=== PATIENT | male | born 1985 | race Two or more races ===

== ENCOUNTER 2019-10-12 01:56 | Inpatient (IN) | payer MEDICAID, OTHER ==
[~2019-10-12] VITALS: Ht 188 cm; Wt 113.4 kg
[2019-10-12 02:55] LABS: Basophils # (auto) 0 10 ^3/uL (0-0.2); Basophils % (auto) 0.2 % (0.0-2.0); Eosinophils # (auto) 0 10 ^3/uL (0-0.8); Hematocrit 48.1 % (41.0-53.0); Hemoglobin 16.3 g/dL (13.5-17.5); Lymphocytes # (auto) 0.5 10 ^3/uL (0.4-5.4); Lymphocytes % (auto) 3.1 % (10.0-50.0); Mean Corpuscular Hemoglobin 30.2 pg (28.0-32.0); Mean Corpuscular Hgb Conc. 33.9 g/dL (32.0-36.0); Monocytes # (auto) 1.1 10 ^3/uL (0-1.3); Monocytes % (auto) 6.6 % (0.0-12.0); Neutrophils # (auto) 14.7 10 ^3/uL (1.6-8.6); Neutrophils % (auto) 90.1 % (37.0-80.0); Platelet Count (auto) 312 10^3/uL (140-450); Red Cell Distribution Width 15.9 % (11.8-14.3); White Blood Cell 16.3 10^3/uL (4.4-10.8)
[2019-10-12 03:14] LABS: BUN/Creatinine Ratio 1.8; Calcium 8.4 mg/dL (8.5-10.1); Potassium 3.8 mmol/L (3.5-5.1)
[2019-10-12 03:17] LABS: Total Protein 8.2 g/dL (6.4-8.2)
[2019-10-12 03:18] LABS: Salicylate < 1.7 mg/dL (2.8-20.0)
[2019-10-12 03:19] LABS: Acetaminophen < 2.0 ug/mL (10-30)
[2019-10-12] MEDS ORDERED: SODIUM CHLORIDE 0.9% 1,000 ML IV ONE ×2 (03:30→05:15)
[2019-10-12 03:38] LABS: Urine Bacteria FEW /hpf (None Seen); Urine Blood TRACE /uL (Negative); Urine Hyaline Cast MANY /lpf (0 - 2); Urine Mucus FEW (None Seen); Urine Specific Gravity 1.021 (1.001-1.035); Urine WBC 1 /hpf (0 - 3)
[2019-10-12 03:49] LABS: Alcohol, Urine < 3.0 mg/dL (0-10); Amphetamine Screen, Urine NEGATIVE (NEGATIVE); Barbiturate Scree,Urine NEGATIVE (NEGATIVE); Benzodiazephine Screen, Urine NEGATIVE (NEGATIVE); Cannabinoid Screen, Urine NEGATIVE (NEGATIVE); Cocaine Screen, Urine NEGATIVE (NEGATIVE); Opiate Scree,Urine NEGATIVE (NEGATIVE); Phencyclidine Screen, Urine NEGATIVE (NEGATIVE)
[2019-10-12] MEDS ORDERED: THIAMINE 100mg/ml INJ (200mg/2ml VIAL) IV ONE (05:15)
[2019-10-12] MEDS ORDERED: FOLIC ACID 1 MG, MULTIPLE VITAMIN 10 ML, MAGNESIUM SULF SDV 50% 8 MEQ, THIAMINE INJ 100... INJ ONE ×5 (05:15)
[2019-10-12] MEDS: SODIUM CHLORIDE 0.9% 1,000 ML IV SCH ×3 (05:24→16:58)
[2019-10-12] MEDS ORDERED: DEXTROSE (50%) 50ML SYRG IV PRN (05:30)
[2019-10-12] MEDS ORDERED: DOCUSATE SOD 100 MG CAP PO PRN (05:30)
[2019-10-12] MEDS ORDERED: MVI in SODIUM CHLORIDE 0.9% 1,010 ML ONE (06:00)
[2019-10-12] MEDS: InsuLIN REG 1unit/0.01ml Soln (100units/ml) SC SCH ×4 (07:57→20:00)
[2019-10-12] MEDS: ACCU-CHEK COMFORT CURVE STRIP VI SCH ×4 (07:58→20:00)
[2019-10-12 09:13] LABS: Basophils # (auto) 0 10 ^3/uL (0-0.2); Basophils % (auto) 0.1 % (0.0-2.0); Eosinophils # (auto) 0 10 ^3/uL (0-0.8); Eosinophils % (auto) 0.2 % (0.0-7.0); Hematocrit 43.3 % (41.0-53.0); Hemoglobin 14.7 g/dL (13.5-17.5); Lymphocytes # (auto) 0.6 10 ^3/uL (0.4-5.4); Lymphocytes % (auto) 4.5 % (10.0-50.0); Mean Corpuscular Hemoglobin 30.5 pg (28.0-32.0); Mean Corpuscular Volume 89.7 fL (80.0-100.0); Monocytes # (auto) 0.7 10 ^3/uL (0-1.3); Monocytes % (auto) 4.7 % (0.0-12.0); Neutrophils # (auto) 12.9 10 ^3/uL (1.6-8.6); Neutrophils % (auto) 90.5 % (37.0-80.0); Platelet Count (auto) 291 10^3/uL (140-450); Red Blood Cells 4.82 10^6/uL (4.5-5.90); Red Cell Distribution Width 15.9 % (11.8-14.3); White Blood Cell 14.2 10^3/uL (4.4-10.8)
[2019-10-12 09:21] LABS: Albumin 3.4 g/dL (3.4-5.0); Anion Gap 11 (5-15); Blood Alcohol < 3.0 mg/dL (0-5); Blood Urea Nitrogen 8 mg/dL (7-18); Calcium 7.9 mg/dL (8.5-10.1); Carbon Dioxide 20 mmol/L (21-32); Chloride 109 mmol/L (98-107); Glucose 179 mg/dL (74-106); Potassium 3.8 mmol/L (3.5-5.1); Sodium 140 mmol/L (136-145)
[2019-10-12 09:25] LABS: Alanine Aminotransferase 49 U/L (16-61); Alkaline Phosphatase 98 U/L (45-117); Aspartate Aminotransferase 33 U/L (15-37); BUN/Creatinine Ratio 3.3; Bilirubin, Total 0.9 mg/dL (0.2-1.0); GFR African American 39 mL/min; GFR Non-African American 32 mL/min
[2019-10-12] MEDS ORDERED: ALPR0.5T7 PO (09:25)
[2019-10-12 09:41] LABS: Cholesterol 198 mg/dL (< 200); HDL Cholesterol 76 mg/dL (40-59); LDL Cholesterol 108 mg/dL (< 100); Triglycerides 124 mg/dL (< 150)
[2019-10-12] MEDS ORDERED: LORazepam 2MG/ML-1ML VIAL IV ONE ×2 (11:15→13:45)
[2019-10-12] MEDS ORDERED: LORazepam 2MG/ML-1ML VIAL ONE ×2 (11:18→13:23)
[2019-10-12] MEDS ORDERED: dilTIAZem 25 MG/5 ML VIAL IV ONE (14:00)
[2019-10-12] MEDS ORDERED: METOPROLOL TARTRATE 25 MG TAB PO ONE (14:30)
[2019-10-12] MEDS ORDERED: cefTRIAXone 1GM/50ML D5W 50 ML IV ONE (15:15)
[2019-10-12] MEDS ORDERED: VANCOMYCIN PER PHARMACY 0 MG IV SCH (15:15)
[2019-10-12] MEDS ORDERED: MAGNESIUM SULFATE 1GM/100ML 100 ML IV ONE (15:30)
[2019-10-12] MEDS: ONDANSETRON HCL 4 MG/2 ML VIAL IV PRN ×2 (16:51→20:05)
[2019-10-12] MEDS ORDERED: VANCOMYCIN 1GM/250ML 250 ML IV ONE (17:00)
[2019-10-12 19:05] LABS: Free T3 3.3 pg/mL (2.3-4.2); Free T4 (Free Thyroxine) 1.21 ng/dL (0.89-1.76)
[2019-10-12] MEDS: chlordiazePOXIDE HCL 25 MG CAP PO PRN (19:07)
[2019-10-12] MEDS: LORazepam 0.5 MG TAB PO PRN (19:07)
[2019-10-13] MEDS: SODIUM CHLORIDE 0.9% 1,000 ML IV SCH ×3 (00:52→16:15)
[2019-10-13] MEDS: METOPROLOL TARTRATE 25 MG TAB PO SCH ×3 (00:52→21:11)
[2019-10-13] MEDS: LORazepam 0.5 MG TAB PO PRN ×3 (01:00→17:48)
[2019-10-13] MEDS: chlordiazePOXIDE HCL 25 MG CAP PO PRN ×3 (01:00→09:54)
[2019-10-13] MEDS: InsuLIN REG 1unit/0.01ml Soln (100units/ml) SC SCH ×6 (01:07→20:00)
[2019-10-13] MEDS: ONDANSETRON HCL 4 MG/2 ML VIAL IV PRN ×3 (01:32→19:15)
[2019-10-13] MEDS ORDERED: PANTOPRAZOLE 40 MG/10 ML VIAL INJ IV ONE (03:15)
[2019-10-13] MEDS: MORPHINE SULF INJ 2 MG/ML SYRINGE 1ML IV PRN ×5 (03:18→23:34)
[2019-10-13] MEDS: ACCU-CHEK COMFORT CURVE STRIP VI SCH ×6 (04:16→20:00)
[2019-10-13 06:04] LABS: Basophils # (auto) 0 10 ^3/uL (0-0.2); Basophils % (auto) 0.3 % (0.0-2.0); Eosinophils # (auto) 0 10 ^3/uL (0-0.8); Hematocrit 40.3 % (41.0-53.0); Hemoglobin 13.5 g/dL (13.5-17.5); Lymphocytes # (auto) 1.1 10 ^3/uL (0.4-5.4); Lymphocytes % (auto) 8.8 % (10.0-50.0); Mean Corpuscular Hemoglobin 30.4 pg (28.0-32.0); Mean Corpuscular Hgb Conc. 33.6 g/dL (32.0-36.0); Mean Corpuscular Volume 90.4 fL (80.0-100.0); Monocytes # (auto) 0.9 10 ^3/uL (0-1.3); Monocytes % (auto) 7.2 % (0.0-12.0); Neutrophils # (auto) 10.2 10 ^3/uL (1.6-8.6); Neutrophils % (auto) 83.7 % (37.0-80.0); Platelet Count (auto) 141 10^3/uL (140-450); Red Blood Cells 4.46 10^6/uL (4.5-5.90); Red Cell Distribution Width 16.2 % (11.8-14.3); White Blood Cell 12.2 10^3/uL (4.4-10.8)
[2019-10-13 06:14] LABS: Albumin 3.2 g/dL (3.4-5.0); Calcium 7.6 mg/dL (8.5-10.1); Potassium 3.4 mmol/L (3.5-5.1)
[2019-10-13 06:17] LABS: BUN/Creatinine Ratio 2.5; Total Protein 6.4 g/dL (6.4-8.2)
[2019-10-13] MEDS: cefTRIAXone 1GM/50ML D5W 50 ML IV SCH (08:27)
[2019-10-13] MEDS ORDERED: POTASSIUM EFFERVESENT TAB 25 MEQ PO ONE (08:30)
[2019-10-13] MEDS: HYDROcodone-ACET 5/325MG TAB PO PRN (11:42)
[2019-10-14] MEDS: SODIUM CHLORIDE 0.9% 1,000 ML IV SCH (00:15)
[2019-10-14] MEDS: InsuLIN REG 1unit/0.01ml Soln (100units/ml) SC SCH ×6 (04:00→20:00)
[2019-10-14] MEDS: ACCU-CHEK COMFORT CURVE STRIP VI SCH ×6 (04:00→20:00)
[2019-10-14 04:09] LABS: Basophils # (auto) 0 10 ^3/uL (0-0.2); Basophils % (auto) 0.7 % (0.0-2.0); Eosinophils # (auto) 0 10 ^3/uL (0-0.8); Eosinophils % (auto) 0.3 % (0.0-7.0); Hematocrit 36.9 % (41.0-53.0); Hemoglobin 12.3 g/dL (13.5-17.5); Lymphocytes # (auto) 1.2 10 ^3/uL (0.4-5.4); Lymphocytes % (auto) 23.1 % (10.0-50.0); Mean Corpuscular Hemoglobin 30.4 pg (28.0-32.0); Mean Corpuscular Hgb Conc. 33.3 g/dL (32.0-36.0); Mean Corpuscular Volume 91.1 fL (80.0-100.0); Monocytes # (auto) 0.3 10 ^3/uL (0-1.3); Monocytes % (auto) 5.8 % (0.0-12.0); Neutrophils # (auto) 3.6 10 ^3/uL (1.6-8.6); Neutrophils % (auto) 70.1 % (37.0-80.0); Nucleated Red Blood Cells % 0.1 %; Platelet Count (auto) 125 10^3/uL (140-450); Red Blood Cells 4.05 10^6/uL (4.5-5.90); Red Cell Distribution Width 15.7 % (11.8-14.3); White Blood Cell 5.1 10^3/uL (4.4-10.8)
[2019-10-14 04:26] LABS: Albumin 2.7 g/dL (3.4-5.0); BUN/Creatinine Ratio 4.8; Calcium 8.1 mg/dL (8.5-10.1); Potassium 3.8 mmol/L (3.5-5.1)
[2019-10-14 04:29] LABS: Bilirubin, Total 0.7 mg/dL (0.2-1.0); Total Protein 6.1 g/dL (6.4-8.2)
[2019-10-14] MEDS: HYDROcodone-ACET 5/325MG TAB PO PRN ×2 (08:16→14:29)
[2019-10-14] MEDS: ONDANSETRON HCL 4 MG/2 ML VIAL IV PRN ×2 (08:17→13:30)
[2019-10-14] MEDS: cefTRIAXone 1GM/50ML D5W 50 ML IV SCH (08:31)
[2019-10-14] MEDS: METOPROLOL TARTRATE 25 MG TAB PO SCH (09:17)
[2019-10-14] MEDS: LORazepam 0.5 MG TAB PO PRN (13:30)
[2019-10-14] MEDS: ACETAMINOPHEN 325 MG TAB PO PRN ×2 (17:22→18:58)
[2019-10-14] MEDS ORDERED: Glucerna Carbsteady SHAKE Vanilla 8oz PO SCH (18:00)
[2019-10-14] MEDS ORDERED: Ensure HIGH Protein Chocolate 8oz Bottle PO SCH (18:00)
[2019-10-14] MEDS ORDERED: amLODIPine BESYLATE 5 MG TAB PO ONE (18:45)
[2019-10-14] MEDS: MORPHINE SULF INJ 2 MG/ML SYRINGE 1ML IV PRN (18:49)
[2019-10-14 19:30] VITALS: BP 148/89
[2019-10-15] MEDS ORDERED: amLODIPine BESYLATE 5 MG TAB PO SCH (10:00)
== END 2019-10-14 21:33 | disposition left against medical advice (07) | DRG 816 ==
LOC: EDBD 01:56 → ER 02:00 → OVERFLOW 02:01
PROVIDERS: ADMIT Hospitalist; ATTEND Internal Medicine
DX: T51.2X2A Toxic effect of 2-Propanol, intentional self-harm, initial encounter (principal); N17.0 Acute kidney failure with tubular necrosis; F10.229 Alcohol dependence with intoxication, unspecified; R73.9 Hyperglycemia, unspecified; N18.9 Chronic kidney disease, unspecified; E78.5 Hyperlipidemia, unspecified; E66.9 Obesity, unspecified; K21.9 Gastro-esophageal reflux disease without esophagitis; I12.9 Hypertensive chronic kidney disease with stage 1 through stage 4 chronic kidney disease, or unspecified chronic kidney disease; R00.0 Tachycardia, unspecified; E87.0 Hyperosmolality and hypernatremia; N39.0 Urinary tract infection, site not specified; Z53.29 Procedure and treatment not carried out because of patient's decision for other reasons; E87.6 Hypokalemia; F41.9 Anxiety disorder, unspecified; Z82.49 Family history of ischemic heart disease and other diseases of the circulatory system; Z78.1 Physical restraint status; G93.41 Metabolic encephalopathy; E44.0 Moderate protein-calorie malnutrition
CPT/HCPCS: 36415; 36600; 51702; 71045; 74176; 80053; 80061; 80307; 80320; 80329; 81001; 82805; 82962; 83036; 83735; 83930; 84439; 84443; 84481; 85025; 93005; 93306; 96361; 96365; 96375; 99291; C9113; G0378; J0696; J1815; J2405

== ENCOUNTER 2022-05-07 13:54 | Emergency (ER) | payer MEDICAID, OTHER ==
[~2022-05-07] VITALS: Ht 180.3 cm; Wt 127.0 kg
[~2022-05-07 13:54] MED LIST: ALPR0.5T7 PO
[2022-05-07 15:09] VITALS: BP 127/72
== END 2022-05-07 14:25 | disposition left against medical advice (07) ==
LOC: ER 13:54 → EDBD 13:54 → ER 14:25
DX: F10.129 Alcohol abuse with intoxication, unspecified (principal); Z53.21 Procedure and treatment not carried out due to patient leaving prior to being seen by health care provider

== ENCOUNTER 2024-05-26 03:47 | Inpatient (IN) | payer MEDICAID, OTHER ==
[~2024-05-26] VITALS: Ht 180.3 cm; Wt 147.1 kg
[2024-05-26] MEDS: IOHEXOL 300 MG/ML 100ML BOTTLE IJ ONE (04:23)
[2024-05-26] MEDS: SODIUM CHLORIDE 0.9% 3,000 ML IV ONE (04:37)
--- NOTE | 2024-05-26 04:37 | ED.PDOC ---
History of Present Illness HPI Comments 38 y/o M, with a history of HTN, pancreatitis, and alcohol abuse, presents with c/o nonradiating, epigastric abdominal pain, nausea, diarrhea, and lightheadedness, today. Patient endorses on sudden and unprovoked onset of symptoms at around 0000, this morning. He states on pain being a 10/10 in severity and diarrhea being "watery-brown" in appearance. Patient reports on no additional relevant or pertinent information, such as injuries, sick contact, spoiled food intake, or other significant medical or surgical history. He denies any vomiting, constipation, hematochezia, urinary symptoms, fever, chills, or other associated symptoms or modifiers at this time. Chief Complaint: Abdominal Pain Time Seen by MD: 04:00 Reviewed Notes: Nurses Notes, Medications, Allergies Allergies: Coded Allergies: NO KNOWN ALLERGIES (Unverified , 10/12/19) Home Meds Reported Medications Alprazolam (Alprazolam) 0.5 Mg Tab, 1 TAB PO PRN PRN for ANXIETY, #30 TAB 10/12/19 Information Source: Patient Mode of Arrival: Ambulatory Severity: Moderate Timing: Hours Duration: Since onset Prehospital treatment: None Past Medical History PAST MEDICAL HISTORY: HTN Past Medical History (Other): pancreatitis Surgical History: Denies all surgeries Family History Family History: Unknown Social History Smoker: Non-Smoker Alcohol: Heavy Drugs: Denies Drug Use Lives In: Home Cardiovascular: reports: lightheadedness Gastrointestinal: reports: abdominal pain, diarrhea, nausea All Other Systems: Reviewed and Negative (Comprehensive review of systems negat bhavna unless otherwise stated above or in HPI) Physical Exam General Appearance: No Apparent Distress, Obese HEENT: Normal ENT Inspection, Pharynx Normal, TMs Normal Neck: Full Range of Motion, Non-Tender, Normal, Normal Inspection Respiratory: Chest Non-Tender, Lungs Clear, No Accessory Muscle Use, No Respiratory Distress, Normal Breath Sounds Cardiovascular: No Edema, No JVD, No Murmur, No Gallop, Normal Peripheral Pulses, Regular Rate/Rhythm Breast Exam: Deferred Gastrointestinal: Epigastric (tenderness), No Organomegaly, No Pulsatile Mass, Normal Bowel Sounds, Soft, Tenderness (epigastric ) Genitalia: Deferred Pelvic: Deferred Rectal: Deferred Extremities: No calf tenderness, Normal capillary refill, Normal inspection, Normal range of motion, Non-tender, No pedal edema Musculoskeletal : Apperance: Normal Neurologic: Alert, mandolin repairer II-XII nml as Tested, No Motor Deficits, Normal Affect, Normal Mood, No Sensory Deficits Cerebellar Function: Normal Reflexes: Normal Skin: Dry, Pallor, Warm Lymphatic: No Adenopathy Was a procedure done? Was a procedure done?: No Differential Dx Considerations may include: gastritis, gastroenteritis, GERD, PUD, spoiled food, viral syndrome, cholelithiasis, cholecystitis X-Ray, Labs, Meds, VS Vital Signs Date Time Temp Pulse Resp B/P (MAP) Pulse Ox O2 Delivery O2 Flow Rate FiO2 05/26/24 05:26 116 22 115/68 05/26/24 04:46 116 26 98 Room Air* 0 21 05/26/24 04:20 97.6 116 26 90/55 (67) 98 97.6 05/26/24 04:00 97.5 119 22 97/75 (82) 100 97.5 Lab Test 05/26/24 04:45 Range/Units White Blood Count 6.6 4.4-10.8 10^3/uL Red Blood Count 5.68 4.5-5.90 10^6/uL Hemoglobin 14.4 13.5-17.5 g/dL Hematocrit 44.7 41.0-53.0 % Mean Corpuscular Volume 78.6 L 80.0-100.0 fL Mean Corpuscular Hemoglobin 25.3 L 28.0-32.0 pg Mean Corpuscular Hemoglobin Concent 32.2 32.0-36.0 g/dL Red Cell Distribution Width 20.0 H 11.8-14.3 % Platelet Count 233 140-450 10^3/uL Mean Platelet Volume 8.7 6.9-10.8 fL Neutrophils (%) (Auto) 87.0 H 37.0-80.0 % Lymphocytes (%) (Auto) 4.0 L 10.0-50.0 % Monocytes (%) (Auto) 5.0 0.0-12.0 % Eosinophils (%) (Auto) 3.0 0.0-7.0 % Basophils (%) (Auto) 1.0 0.0-2.0 % Neutrophils # (Auto) 5.7 1.6-8.6 10 ^3/uL Lymphocytes # (Auto) 0.3 L 0.4-5.4 10 ^3/uL Monocytes # (Auto) 0.3 0-1.3 10 ^3/uL Eosinophils # (Auto) 0.2 0-0.8 10 ^3/uL Basophils # (Auto) 0.1 0-0.2 10 ^3/uL Nucleated Red Blood Cells 0.1 % Sodium Level 138 136-145 mmol/L Potassium Level 4.7 3.5-5.1 mmol/L Chloride Level 107 98-107 mmol/L Carbon Dioxide Level 19 L 20-31 mmol/L Anion Gap 12 5-15 Blood Urea Nitrogen 21 9-23 mg/dL Creatinine 1.30 0.700-1.30 mg/dL Glomerular Filtration Rate Calc 72 >90 mL/min BUN/Creatinine Ratio 16.2 10.0-20.0 Serum Glucose 119 H 74-106 mg/dL Lactic Acid Level 2.7 *H 0.4-2.0 mmol/L Calcium Level 10.8 H 8.7-10.4 mg/dL Total Bilirubin 0.8 0.2-1.0 mg/dL Aspartate Amino Transferase (AST) 21 13-40 U/L Alanine Aminotransferase (ALT) 26 7-40 U/L Alkaline Phosphatase 84 46-116 U/L Total Protein 8.1 5.7-8.2 g/dL Albumin 5.3 H 3.2-4.8 g/dL Lipase 35 12-53 U/L Current Medications Medications (Trade) Dose Ordered Sig/Addie Route Start Time Stop Time Status Last Admin Sodium Chloride 3,000 ml @ 1,000 mls/hr Q3H ONCE IV 05/26/24 04:15 05/26/24 07:14 05/26/24 04:37 Ondansetron HCl (Zofran) 4 mg ONCE ONCE IV 05/26/24 04:15 05/26/24 04:16 DC 05/26/24 04:38 Morphine Sulfate 4 mg ONCE ONCE IV 05/26/24 05:30 05/26/24 05:31 DC 05/26/24 05:26 Reevaluation 1ST: Unchanged Patient Education/Counseling: Diagnosis, Treatment Family Education/Counseling: No Family Present Additional Information Previous visit documents reviewed: May 07, 2022 encounter for ALOC The following tests were ordered, and results were reviewed by me: blood culture, CT abdomen/pelvis w/IV contrast, CXR, lactic acid, lipase, CMP, CBC Additional Information was gathered from interviewing the following independent historians: n/a I reviewed and agreed with the following test results read by other providers: CT abdomen/pelvis w/IV contrast, CXR I discussed treatment and results with medical personnel and: Patient Critical Care Note Critical Care Time?: No Stability Stability form required: No Heart Score Heart Score: Heart Score Response (Comments) Value History N/A 0 EKG N/A 0 Age N/A 0 Risk Factors N/A 0 Troponin N/A 0 Total 0 I personally scribed for REBEKAH STALLWORTH MD ([email or web address]) on 05/26/24 at 04:37. Electronically submitted by Saul Loya ([email or web address]). REBEKAH STALLWORTH MD May 26, 2024 04:37
[2024-05-26] MEDS: ONDANSETRON HCL 4 MG/2 ML VIAL IV ONE (04:38)
[2024-05-26 04:46] VITALS: PULSE 116; RESP 26; O2SAT 98
[2024-05-26 05:21] LABS: Basophils # (auto) 0.1 10 ^3/uL (0-0.2); Eosinophils # (auto) 0.2 10 ^3/uL (0-0.8); Hematocrit 44.7 % (41.0-53.0); Hemoglobin 14.4 g/dL (13.5-17.5); Lymphocytes # (auto) 0.3 10 ^3/uL (0.4-5.4); Mean Corpuscular Hemoglobin 25.3 pg (28.0-32.0); Mean Corpuscular Hgb Conc. 32.2 g/dL (32.0-36.0); Mean Corpuscular Volume 78.6 fL (80.0-100.0); Monocytes # (auto) 0.3 10 ^3/uL (0-1.3); Neutrophils # (auto) 5.7 10 ^3/uL (1.6-8.6); Nucleated Red Blood Cells % 0.1 %; Platelet Count (auto) 233 10^3/uL (140-450); Red Blood Cells 5.68 10^6/uL (4.5-5.90); White Blood Cell 6.6 10^3/uL (4.4-10.8)
[2024-05-26] MEDS: MORPHINE SULFATE 4 MG/ML SYR/VIAL IV ONE (05:26)
[2024-05-26 05:27] LABS: Alanine Aminotransferase 26 U/L (7-40); Alkaline Phosphatase 84 U/L (46-116); Anion Gap 12 (5-15); Aspartate Aminotransferase 21 U/L (13-40); BUN/Creatinine Ratio 16.2 (10.0-20.0); Blood Urea Nitrogen 21 mg/dL (9-23); Chloride 107 mmol/L (98-107); Lipase 35 U/L (12-53); Potassium 4.7 mmol/L (3.5-5.1); Sodium 138 mmol/L (136-145); Total Protein 8.1 g/dL (5.7-8.2)
[2024-05-26 05:28] LABS: Bilirubin, Total 0.8 mg/dL (0.2-1.0)
[2024-05-26 05:29] LABS: Albumin 5.3 g/dL (3.2-4.8); Calcium 10.8 mg/dL (8.7-10.4); Carbon Dioxide 19 mmol/L (20-31); Glucose 119 mg/dL (74-106)
[2024-05-26 05:41] LABS: Lactic Acid w/Reflex 2.7 mmol/L (0.4-2.0)
--- NOTE | 2024-05-26 06:07 | DVH ---
EXAM: CT Abdomen and Pelvis With Intravenous Contrast CLINICAL INDICATION: abdominal pain, hypotension TECHNIQUE: Axial computed tomography images of the abdomen and pelvis with intravenous contrast. Th is CT exam was performed using one or more of the following dose reduction techniques: automated exp osure control, adjustment of the mA and/or kV according to patient size, and/or use of iterative hollie nstruction technique. CONTRAST: COMPARISON: None FINDINGS: LUNG BASES: Unremarkable. No mass. No consolidation. ABDOMEN: LIVER: Unremarkable. No mass. GALLBLADDER AND BILE DUCTS: Unremarkable. No calcified stones. No ductal dilation. PANCREAS: Unremarkable. No mass. No ductal dilation. SPLEEN: Unremarkable. No splenomegaly. ADRENALS: Unremarkable. No mass. KIDNEYS AND URETERS: Unremarkable. No solid mass. No hydronephrosis. STOMACH AND BOWEL: Fluid-filled small and large bowel could be secondary to enterocolitis. Clinica l correlation is recommended. No bowel obstruction. PELVIS: APPENDIX: No findings to suggest acute appendicitis. BLADDER: Unremarkable. No mass. REPRODUCTIVE: Unremarkable as visualized. ABDOMEN and PELVIS: INTRAPERITONEAL SPACE: Unremarkable. No free air. No significant fluid collection. BONES/JOINTS: No acute fracture. No dislocation. SOFT TISSUES: Bilateral inguinal hernias. VASCULATURE: Unremarkable. No abdominal aortic aneurysm. LYMPH NODES: Unremarkable. No enlarged lymph nodes. OTHER FINDINGS: . IMPRESSION: 1. Fluid-filled small and large bowel could be secondary to enterocolitis. Clinical correlation is recommended. No bowel obstruction. 2. Bilateral inguinal hernias.
--- NOTE | 2024-05-26 06:25 | DVH ---
CHEST RADIOGRAPH Indication: abdominal pain Technique: Single frontal view of the chest was obtained Comparison: CHEST PORTABLE on DOS: 10/12/19 FINDINGS: Lines and Tubes: None Lungs: No focal consolidation. Pleura: No effusion. No pneumothorax. Cardiomediastinal contours: Unremarkable Bones: No acute osseous abnormality. IMPRESSION: 1. No acute cardiopulmonary disease.
[2024-05-26] MEDS ORDERED: ONDANSETRON HCL 4 MG/2 ML VIAL IV PRN (07:30)
[2024-05-26] MEDS ORDERED: ACETAMINOPHEN 325 MG TAB PO PRN (07:30)
[2024-05-26 07:35] VITALS: PULSE 127; RESP 17; O2SAT 97
[2024-05-26] MEDS: SODIUM CHLORIDE 0.9% 1,000 ML IV SCH (07:36)
[2024-05-26] MEDS: metroNIDAZOLE 500MG/100ML 100 ML IV ONE (07:36)
[2024-05-26] MEDS: ACETAMINOPHEN 500 MG TAB or CAP PO ONE (07:36)
[2024-05-26] MEDS ORDERED: LISI-285 PO (07:54)
--- NOTE | 2024-05-26 08:02 | DVHHP2 ---
History of Present Illness Reason for Visit: Abdominal Pain History of Present Illness Cih Hall is a 38-year-old male with past medical history of hypertension, and ETOH abuse, who came to the hospital for abdominal pain. Patient states his symptoms came on suddenly. Last night he was doing well, went to go to bed around midnight, used the bathroom, had a BM then suddenly the abdominal pain started and so did his diarrhea. He states he was using the bathroom every 5 minutes, was nauseated and dry heaving, and the abdominal pain was severe. On arrival to ER he was given medication that helped with the nausea and abdominal pain, he continues to have frequent diarrhea. Patient was found to be tachycar dic and hypotensive in the ER, with elevated lactic acid. Fluid resuscitation with 3L was initiated by ER. Later patient developed a fever of 102.1. Cardiovascular: HTN Past Surgical History: Other (gastric bypass) Smoke: No ALCOHOL: heavy Drugs: None Lives: with Family Review of Systems Constitutional: No: Fever, Chills, Sweats, Weakness, Malaise, Other Eyes: No: Pain, Vision change, Conjunctivae inflammation, Eyelid inflammation, Other, Redness ENT: No: Ear pain, Ear discharge, Nose pain, Nose discharge, Nose congestion, Mouth pain, Mouth swelling, Throat pain, Throat swelling, Other Respiratory: No: Cough, Dry, Shortness of breath, SOB with excertion, Wheezing, Hemoptysis, Pleuritic Pain, Sputum, Wheezing, Other Cardiovascular: No: Chest Pain, Palpitations, Orthopnea, Paroxysmal Noc. Dyspnea, Edema, Lt Headedness, Other Gastrointestinal: Nausea, Vomiting, Abdominal Pain, Diarrhea; No: Constipation, Melena, Hematochezia, Other Genitourinary: No Dysuria, No Frequency, No Incontinence, No Hematuria, No Retention, No Other Musculoskeletal: No: other, neck pain, shoulder pain, arm pain, back pain, hand pain, leg pain, foot pain Skin: No: Rash, Lesions, Jaundice, Bruising, Other Neurological: No: Weakness, Numbness, Incoordination, Change in speech, Confusion, Seizures, Other Allergies: Coded Allergies: NO KNOWN ALLERGIES (Unverified , 10/12/19) Medications Current Medications Medications Dose Ordered Sig/Addie Route Start Time Stop Time Status Last Admin Dose Admin Sodium Chloride 1,000 ml @ 100 mls/hr Q10H IV 05/26/24 07:30 UNV Acetaminophen/ Hydrocodone Bitart 1 tab Q4HP PRN PO 05/26/24 07:30 UNV Ondansetron HCl 4 mg Q4HP PRN IV 05/26/24 07:30 UNV Acetaminophen 650 mg Q6HP PRN PO 05/26/24 07:30 UNV Metronidazole 100 ml @ 100 mls/hr Q8HR IV 05/26/24 14:00 UNV Exam Vital Signs Vital Signs Date Time Temp Pulse Resp B/P (MAP) Pulse Ox O2 Delivery O2 Flow Rate FiO2 05/26/24 06:07 118 20 124/72 05/26/24 06:00 94 05/26/24 04:46 Room Air* 0 21 05/26/24 04:20 97.6 97.6 General Appearance: Alert, Oriented X3 HEENT: Atraumatic, PERRLA Respiratory: Clear to auscultation, Normal air movement, Other Cardiovascular: Regular rate, Normal S1, Normal S2, No murmurs Abdominal: Normal bowel sounds, Other (abdominal pain and bloating) Extremities: No clubbing, No cyanosis, No edema, Normal pulses Skin: No rashes, No breakdown, No significant lesion Neuro: Normal gait, Normal speech, Strength at 5/5 X4 ext Psych/Mental Status: Mental status NL, Mood NL Labs/Xrays Labs Test 05/26/24 06:35 05/26/24 04:45 Range/Units Lactic Acid Level 2.7 *H 0.4-2.0 mmol/L White Blood Count 6.6 4.4-10.8 10^3/uL Red Blood Count 5.68 4.5-5.90 10^6/uL Hemoglobin 14.4 13.5-17.5 g/dL Hematocrit 44.7 41.0-53.0 % Mean Corpuscular Volume 78.6 L 80.0-100.0 fL Mean Corpuscular Hemoglobin 25.3 L 28.0-32.0 pg Mean Corpuscular Hemoglobin Concent 32.2 32.0-36.0 g/dL Red Cell Distribution Width 20.0 H 11.8-14.3 % Platelet Count 233 140-450 10^3/uL Mean Platelet Volume 8.7 6.9-10.8 fL Neutrophils (%) (Auto) 87.0 H 37.0-80.0 % Lymphocytes (%) (Auto) 4.0 L 10.0-50.0 % Monocytes (%) (Auto) 5.0 0.0-12.0 % Eosinophils (%) (Auto) 3.0 0.0-7.0 % Basophils (%) (Auto) 1.0 0.0-2.0 % Neutrophils # (Auto) 5.7 1.6-8.6 10 ^3/uL Lymphocytes # (Auto) 0.3 L 0.4-5.4 10 ^3/uL Monocytes # (Auto) 0.3 0-1.3 10 ^3/uL Eosinophils # (Auto) 0.2 0-0.8 10 ^3/uL Basophils # (Auto) 0.1 0-0.2 10 ^3/uL Nucleated Red Blood Cells 0.1 % Sodium Level 138 136-145 mmol/L Potassium Level 4.7 3.5-5.1 mmol/L Chloride Level 107 98-107 mmol/L Carbon Dioxide Level 19 L 20-31 mmol/L Anion Gap 12 5-15 Blood Urea Nitrogen 21 9-23 mg/dL Creatinine 1.30 0.700-1.30 mg/dL Glomerular Filtration Rate Calc 72 >90 mL/min BUN/Creatinine Ratio 16.2 10.0-20.0 Serum Glucose 119 H 74-106 mg/dL Calcium Level 10.8 H 8.7-10.4 mg/dL Total Bilirubin 0.8 0.2-1.0 mg/dL Aspartate Amino Transferase (AST) 21 13-40 U/L Alanine Aminotransferase (ALT) 26 7-40 U/L Alkaline Phosphatase 84 46-116 U/L Total Protein 8.1 5.7-8.2 g/dL Albumin 5.3 H 3.2-4.8 g/dL Lipase 35 12-53 U/L EXAM: CT Abdomen and Pelvis With Intravenous Contrast FINDINGS: LUNG BASES: Unremarkable. No mass. No consolidation. ABDOMEN: LIVER: Unremarkable. No mass. GALLBLADDER AND BILE DUCTS: Unremarkable. No calcified stones. No ductal dilation. PANCREAS: Unremarkable. No mass. No ductal dilation. SPLEEN: Unremarkable. No splenomegaly. ADRENALS: Unremarkable. No mass. KIDNEYS AND URETERS: Unremarkable. No solid mass. No hydronephrosis. STOMACH AND BOWEL: Fluid-filled small and large bowel could be secondary to enterocolitis. Clinical correlation is recommended. No bowel obstruction. PELVIS: APPENDIX: No findings to suggest acute appendicitis. BLADDER: Unremarkable. No mass. REPRODUCTIVE: Unremarkable as visualized. ABDOMEN and PELVIS: INTRAPERITONEAL SPACE: Unremarkable. No free air. No significant fluid collection. BONES/JOINTS: No acute fracture. No dislocation. SOFT TISSUES: Bilateral inguinal hernias. VASCULATURE: Unremarkable. No abdominal aortic aneurysm. LYMPH NODES: Unremarkable. No enlarged lymph nodes. OTHER FINDINGS: . IMPRESSION: 1. Fluid-filled small and large bowel could be secondary to enterocolitis. Clinical correlation is recommended. No bowel obstruction. 2. Bilateral inguinal hernias. CHEST RADIOGRAPH FINDINGS: Lines and Tubes: None Lungs: No focal consolidation. Pleura: No effusion. No pneumothorax. Cardiomediastinal contours: Unremarkable Bones: No acute osseous abnormality. IMPRESSION: 1. No acute cardiopulmonary disease. Assessment/Plan Assessment/Plan Assessment: Enterocolitis, Dehydration, Hypotension, Lactic acidosis, Sepsis, Plan: Admit to Med-Surg, IV antibiotics, IV hydration, Amylase pending, Send stool for C-diff, WBC, & bacteria, Blood cultures, Consider GI consult if symptoms persist, Home medications reconciled, Plan discussed with: Patient My Orders Orders - TONO JOHNSON Procedure Category Date Status Time Amylase LAB 05/26/24 In Process 07:22 Admit ADMIT 05/26/24 Transmitted 07:22 Code Status CODE 05/26/24 Transmitted 07:22 Sodium Chloride 0.9% PHA 05/26/24 Logged 07:30 Hydrocodone-Acet PHA 05/26/24 Logged 5/325mg Tab ([place] 07:30 Ondansetron Hcl PHA 05/26/24 Logged (Zofran) 07:30 Complete Blood Count LAB 05/27/24 Verified 04:00 Comprehensive LAB 05/27/24 Verified Metabolic Panel 04:00 Condition: Serious GERMÁN 05/26/24 Transmitted 07:22 Acetaminophen Tablet PHA 05/26/24 Logged (Tylenol Tablet) 07:30 Clear Liq Diet DIET 05/26/24 Transmitted Breakfast Metronidazole PHA 05/26/24 Logged 500mg/100ml (Flagyl 14:00 Metronidazole PHA 05/26/24 Logged 500mg/100ml (Flagyl 07:30 Date of Service: May 26, 2024 Billing Provider: TONO JOHNSON Common Visit Codes: [id number] INP/OBS CARE (MOD) TONO JOHNSON May 26, 2024 08:02
[2024-05-26] MEDS: HYDROcodone-ACET 5/325MG TAB PO PRN (09:05)
[2024-05-26] MEDS: hydroCHLOROthiazide 25 MG TAB PO SCH (09:41)
[2024-05-26] MEDS: LISINOPRIL 20 MG TAB PO SCH (09:41)
[2024-05-26] MEDS ORDERED: SODIUM CHLORIDE 0.9% 1,000 ML IV ONE ×2 (10:00→11:45)
[2024-05-26] MEDS: SODIUM CHLORIDE 0.9% 1,000 ML IV ONE (10:45)
[2024-05-26] MEDS: cefTRIAXone 1GM/50ML D5W 50 ML IV ONE (10:54)
[2024-05-26 11:11] LABS: COVID19 ANTIGEN SOFIA FIA NEGATIVE (NEGATIVE); Rapid Influenza A Negative (Negative); Rapid Influenza B Negative (Negative)
[2024-05-26] MEDS ORDERED: SODIUM CHLORIDE 0.9% 250 ML IV ONE (11:30)
[2024-05-26] MEDS ORDERED: metroNIDAZOLE 500MG/100ML 100 ML IV SCH (14:00)
--- NOTE | 2024-05-26 15:04 | DVHPNRES ---
Progress Note Date Seen: May 26, 2024 Resident Creating Document: REDDY POLANCO RESIDENT Has the PT tested + for MRSA If YES, has PT been informed?: No Medical Necessity Reason Pt with a Central, PICC or Fol: No Subjective Review of Systems 38-year-old male with past medical history of hypertension,morbid obesity,depression and alcohol abuse, who came to the hospital for abdominal pain. Patient states his symptoms came on suddenly last night after he used the bathroom, he reports he had the abdominal pain associated with diarrhea. He states he was using the bathroom every 5 minutes, was nauseated and dry heaving, and the abdominal pain was severe. On arrival patient was found to be on severe sepsis for which he was started on ns bolus , broad spectrum antibiotics, in the afternoon the temperature normalized, blood pressure remained low but with MAP on 65 . patient was able to walk to the bathroom and tolerate soft mechanical diet. patient will need to be monitored and continue on fluids and iv atb. Patient reports: Feels better Review of Systems: HEENT:Normal, CVS:Normal, RESPIRATORY:Normal, GI:Normal, :Normal, MSK:Normal, NEURO:Normal Objective vital signs Vital Sign Date Time Temp Pulse Resp B/P (MAP) Pulse Ox O2 Delivery O2 Flow Rate FiO2 05/26/24 11:34 103 17 91/52 (65) 96 05/26/24 08:59 99.5 05/26/24 07:35 Room Air* 0 21 Total Intake and Output 05/25/24 05/25/24 05/26/24 15:00 23:00 07:00 Intake Total 2000 ml Balance 2000 ml medications Current Medications Medications Dose Ordered Sig/Addie Route Start Time Stop Time Status Last Admin Dose Admin Sodium Chloride 1,000 ml @ 100 mls/hr Q10H IV 05/26/24 07:30 05/26/24 07:36 100 MLS/HR Acetaminophen/ Hydrocodone Bitart 1 tab Q4HP PRN PO 05/26/24 07:30 05/26/24 09:05 1 TAB Ondansetron HCl 4 mg Q4HP PRN IV 05/26/24 07:30 Acetaminophen 650 mg Q6HP PRN PO 05/26/24 07:30 Metronidazole 100 ml @ 100 mls/hr Q8HR IV 05/26/24 14:00 Ceftriaxone Sodium 50 ml @ 100 mls/hr DAILY@09 IV 05/27/24 09:00 Examination: GENERAL:Normal, HEENT:Normal, NECK:Normal, LUNGS:Normal, CVS:Normal, ABDOMEN:Normal, MSK:Normal, SKIN:Normal, NEURO:Normal, :Normal laboratory and microbiology Laboratory Tests 05/26/24 04:45 Test 05/26/24 04:45 Range/Units Serum Glucose 119 H 74-106 mg/dL Microbiology Date/Time Source Procedure Growth Status 05/26/24 11:03 Stool Stool Culture - Preliminary Resulted 05/26/24 11:03 Stool Shiga Toxin I & II - Final Resulted 05/26/24 11:03 Stool Clostridium difficile Toxin Assay Pending Resulted Problem List/Assessment/Plan Problem List/Assessment/Plan Sever Sepsis likely due to enterocolitis hypertension hypotension major depression alcohol dependency bilateral inguinal hernias morbid obesity BMI:45.2 Plan: - Fluid resuscitation with NS 0.9% - IV antibiotics - Send stool for C-diff, pending - Blood cultures, pending - monitor vitals closely - patient clinically stable case discussed with Dr Lance goals of care discussed with the patient for 21 min code status: full code Plan discussed with: Patient My Orders My Orders Orders - REDDY POLANCO Procedure Category Date Status Time Drug Screen LAB 05/26/24 Logged 09:38 Urinalysis LAB 05/26/24 Uncollected 09:38 Ceftriaxone 1gm/50ml PHA 05/27/24 In Process D5w (Rocephin) 09:00 Date of Service: May 26, 2024 Billing Provider: TAYLOR LANCE MD Common Visit Codes: [id number] INP/OBS CARE(HIGH) REDDY POLANCO May 26, 2024 15:04 TAYLOR LANCE MD May 28, 2024 08:29
[2024-05-26 16:38] VITALS: BP 129/55; PULSE 86; RESP 16; TEMP 97.9; O2SAT 96
--- NOTE | 2024-05-27 06:55 | DVHDSRES ---
Discharge Summary Date of Admission Resident Creating Document: REDDY POLANCO May 26, 2024 at 07:22 Date of Discharge: May 26, 2024 Labs/Diagnostic Data: Laboratory Results Test 05/26/24 11:03 05/26/24 10:12 05/26/24 06:35 05/26/24 04:45 Stool for White Cells None seen Influenza Type A Antigen Negative (Negative) Influenza Type B Antigen Negative (Negative) SARS-CoV-2 Antigen (Rapid) Negative (NEGATIVE) Lactic Acid Level 2.7 mmol/L (0.4-2.0) White Blood Count 6.6 10^3/uL (4.4-10.8) Red Blood Count 5.68 10^6/uL (4.5-5.90) Hemoglobin 14.4 g/dL (13.5-17.5) Hematocrit 44.7 % (41.0-53.0) Mean Corpuscular Volume 78.6 fL (80.0-100.0) Mean Corpuscular Hemoglobin 25.3 pg (28.0-32.0) Mean Corpuscular Hemoglobin Concent 32.2 g/dL (32.0-36.0) Red Cell Distribution Width 20.0 % (11.8-14.3) Platelet Count 233 10^3/uL (140-450) Mean Platelet Volume 8.7 fL (6.9-10.8) Neutrophils (%) (Auto) 87.0 % (37.0-80.0) Lymphocytes (%) (Auto) 4.0 % (10.0-50.0) Monocytes (%) (Auto) 5.0 % (0.0-12.0) Eosinophils (%) (Auto) 3.0 % (0.0-7.0) Basophils (%) (Auto) 1.0 % (0.0-2.0) Neutrophils # (Auto) 5.7 10 ^3/uL (1.6-8.6) Lymphocytes # (Auto) 0.3 10 ^3/uL (0.4-5.4) Monocytes # (Auto) 0.3 10 ^3/uL (0-1.3) Eosinophils # (Auto) 0.2 10 ^3/uL (0-0.8) Basophils # (Auto) 0.1 10 ^3/uL (0-0.2) Nucleated Red Blood Cells 0.1 % Sodium Level 138 mmol/L (136-145) Potassium Level 4.7 mmol/L (3.5-5.1) Chloride Level 107 mmol/L (98-107) Carbon Dioxide Level 19 mmol/L (20-31) Anion Gap 12 (5-15) Blood Urea Nitrogen 21 mg/dL (9-23) Creatinine 1.30 mg/dL (0.700-1.30) Glomerular Filtration Rate Calc 72 mL/min (>90) BUN/Creatinine Ratio 16.2 (10.0-20.0) Serum Glucose 119 mg/dL (74-106) Hemoglobin A1c 5.6 % A1C (<5.7) Calcium Level 10.8 mg/dL (8.7-10.4) Total Bilirubin 0.8 mg/dL (0.2-1.0) Aspartate Amino Transferase (AST) 21 U/L (13-40) Alanine Aminotransferase (ALT) 26 U/L (7-40) Alkaline Phosphatase 84 U/L (46-116) Total Protein 8.1 g/dL (5.7-8.2) Albumin 5.3 g/dL (3.2-4.8) Amylase Level 135 U/L (30-118) Lipase 35 U/L (12-53) Vitamin B12 Level 293 pg/mL (211-911) Other Laboratory Tests 05/26/24 04:45 Brief Hx & Hospital Course: HPI: 38-year-old male with past medical history of hypertension,morbid obesity,depression and alcohol abuse, who came to the hospital for abdominal pain. Patient states his symptoms came on suddenly last night after he used the bathroom, he reports he had the abdominal pain associated with diarrhea. He states he was using the bathroom every 5 minutes, was nauseated and dry heaving, and the abdominal pain was severe. Hospital course: On arrival patient was found to be on severe sepsis for which he was started on ns bolus , broad spectrum antibiotics, in the afternoon the temperature normalized, blood pressure remained low but with MAP on 65 . patient was able to walk to the bathroom and tolerate soft mechanical diet. patient will need to be monitored and continue on fluids and iv atb.Patient encouraged to stay for further treatment/stabilization. Patient advised of the risks and benefits of leaving AMA.Patient left AMA. Operations or Procedures [place] [address] Ph: [phone] DIAGNOSTIC IMAGING Diagnostic Imaging Report : [id number] Signed PATIENT: BHUMIKA COLBY ACCT: [id number] UNIT: [id number] : 1985 LOC: ER ROOM / BED: / AGE / SEX: 38 / M ADM STATUS: REG ER SERVICE 9 ORDERING PHYSICIAN: REBEKAH STALLWORTH MD PROCEDURE(s): CXRP - CHEST PORTABLE REASON: abdominal pain ORDER NUMBER(s): [id number], ACCESSION NUMBER(s): [id number] CHEST RADIOGRAPH Indication: abdominal pain Technique: Single frontal view of the chest was obtained Comparison: CHEST PORTABLE on DOS: 10/12/19 FINDINGS: Lines and Tubes: None Lungs: No focal consolidation. Pleura: No effusion. No pneumothorax. Cardiomediastinal contours: Unremarkable Bones: No acute osseous abnormality. IMPRESSION: 1. No acute cardiopulmonary disease. ATED BY: GATO COLE MD DICTATED DATE/TIME: 05/26/24621 SIGNED BY: GATO COLE MD SIGNED DATE/TIME: 05/26/24621 CC: [place] [address] Ph: [phone] DIAGNOSTIC IMAGING Diagnostic Imaging Report : [id number] Signed PATIENT: BHUMIKA COLBY ACCT: [id number] UNIT: [id number] : 1985 LOC: ER ROOM / BED: / AGE / SEX: 38 / M ADM STATUS: REG ER SERVICE 9 ORDERING PHYSICIAN: REBEKAH STALLWORTH MD PROCEDURE(s): ABPLIV - CT AB PEL WITH IV CON ONLY REASON: abdominal pain, hypotension ORDER NUMBER(s): [id number], ACCESSION NUMBER(s): [id number] EXAM: CT Abdomen and Pelvis With Intravenous Contrast CLINICAL INDICATION: abdominal pain, hypotension TECHNIQUE: Axial computed tomography images of the abdomen and pelvis with intravenous contrast. This CT exam was performed using one or more of the following dose reduction techniques: automated exposure control, adjustment of the mA and/or kV according to patient size, and/or use of iterative reconstruction technique. CONTRAST: COMPARISON: None FINDINGS: LUNG BASES: Unremarkable. No mass. No consolidation. ABDOMEN: LIVER: Unremarkable. No mass. GALLBLADDER AND BILE DUCTS: Unremarkable. No calcified stones. No ductal dilation. PANCREAS: Unremarkable. No mass. No ductal dilation. SPLEEN: Unremarkable. No splenomegaly. ADRENALS: Unremarkable. No mass. KIDNEYS AND URETERS: Unremarkable. No solid mass. No hydronephrosis. STOMACH AND BOWEL: Fluid-filled small and large bowel could be secondary to enterocolitis. Clinical correlation is recommended. No bowel obstruction. PELVIS: APPENDIX: No findings to suggest acute appendicitis. BLADDER: Unremarkable. No mass. REPRODUCTIVE: Unremarkable as visualized. ABDOMEN and PELVIS: INTRAPERITONEAL SPACE: Unremarkable. No free air. No significant fluid collection. BONES/JOINTS: No acute fracture. No dislocation. SOFT TISSUES: Bilateral inguinal hernias. VASCULATURE: Unremarkable. No abdominal aortic aneurysm. LYMPH NODES: Unremarkable. No enlarged lymph nodes. OTHER FINDINGS: . IMPRESSION: 1. Fluid-filled small and large bowel could be secondary to enterocolitis. Clinical correlation is recommended. No bowel obstruction. 2. Bilateral inguinal hernias. ATED BY: ENMANUEL AUGUSTE MD DICTATED DATE/TIME: 05/26/24603 SIGNED BY: ENMANUEL AUGUSTE MD SIGNED DATE/TIME: 05/26/24603 CC: Condition at Discharge: Undetermined Final Diagnosis/Problems List Sever Sepsis likely due to enterocolitis hypertension hypotension major depression alcohol dependency bilateral inguinal hernias morbid obesity BMI:45.2 Discharge Disposition: AMA SNF Discharge Will this Physician continue t: No Discharge Statement: "Patient was advised to return to the ER or call 911 if any headaches, dizziness, shortness of breath, chest pain, abdominal pain, bleeding, fevers, or worsening of medical condition. Patient was counseled about treatment plan, medications, possible side effects, patientverbalized understanding. All questions were answered to the best of my ability. This discharge took greater then 30 minutes in planning, reviewing documentation, counseling the patient, and discussing with other team members." ASSESSMENT ASSESSMENT Assessment Date of Service: May 26, 2024 Billing Provider: TAYLOR LANCE MD Common Visit Codes: 76113-QBE/OBS DISCH DAY >30min REDDY POLANCO RESIDENT May 27, 2024 06:55 TAYLOR LANCE MD May 28, 2024 08:53
[2024-05-27] MEDS ORDERED: cefTRIAXone 1GM/50ML D5W 50 ML IV SCH (09:00)
== END 2024-05-26 18:00 | disposition left against medical advice (07) | DRG 720 ==
LOC: ER 03:47 → OVERFLOW 07:22
PROVIDERS: ADMIT Student in an Organized Health Care Education/Training Program; ATTEND Student in an Organized Health Care Education/Training Program
DX: A41.9 Sepsis, unspecified organism (principal); E87.20 Acidosis, unspecified; I95.9 Hypotension, unspecified; E86.0 Dehydration; Z53.29 Procedure and treatment not carried out because of patient's decision for other reasons; K52.9 Noninfective gastroenteritis and colitis, unspecified; I10 Essential (primary) hypertension; K40.20 Bilateral inguinal hernia, without obstruction or gangrene, not specified as recurrent; F32.9 Major depressive disorder, single episode, unspecified; F10.20 Alcohol dependence, uncomplicated; E66.01 Morbid (severe) obesity due to excess calories; R65.20 Severe sepsis without septic shock; Z98.84 Bariatric surgery status; Z79.899 Other long term (current) drug therapy; Z68.42 Body mass index [BMI] 45.0-49.9, adult; Y90.9 Presence of alcohol in blood, level not specified
CPT/HCPCS: 36415; 71045; 74177; 80053; 82150; 82607; 83036; 83605; 83690; 85025; 85048; 87040; 87045; 87426; 87427; 87493; 87804; 96365; 96375; G0378; J2405; J3490

== ENCOUNTER 2024-10-16 11:52 | Inpatient (IN) | payer OTHER ==
[~2024-10-16] VITALS: Ht 182.9 cm; Wt 151.3 kg
[~2024-10-16 11:52] MED LIST changes: +LISI-285 PO
--- NOTE | 2024-10-16 12:17 | ED.PDOC ---
History of Present Illness HPI Comments This is a 39 years old male with past medical history of hypertension, alcohol use disorder, pancreatitis presented to the ED via EMS for an evaluation of syncopal episode happened earlier today. The patient states that he was completely all right in the morning and took lisinopril 40 mg for his hypertension half an hour after that he felt lightheadedness, blackout, fall and hit the wall but denies loss of consciousness or any trauma to the head or the back. He also complaint of severe abdominal pain, 10/ with nausea and diarrhoea with the syncopal episode. He had similar episode in May 2024 . He denies fever, chills, shortness of breath, dysuria, hematuria or any positive sick contact. Chief Complaint: Low Blood Pressure Time Seen by MD: 12:14 Allergies: Coded Allergies: NO KNOWN ALLERGIES (Unverified , 10/12/19) Home Meds Reported Medications Lisinopril & Hydrochlorothiazi (Lisinopril/Hydrochlorothi) 1 Tab Tab, 2 TAB PO DAILY 05/26/24 Alprazolam (Alprazolam) 0.5 Mg Tab, 1 TAB PO PRN PRN for ANXIETY, #30 TAB 10/12/19 Mode of Arrival: EMS Past Medical History PAST MEDICAL HISTORY: HTN Surgical History: Denies all surgeries Family History Family History: Unknown Social History Smoker: Non-Smoker Alcohol: Heavy Drugs: Denies Drug Use Lives In: Home Constitutional: reports: diaphoresis, weakness; denies: chills, fatigue, fever, malaise, sweats, others EENTM: denies: blurred vision, double vision, ear bleeding, ear discharge, ear drainage, ear pain, ear ringing, eye pain, eye redness, hearing loss, mouth pain, mouth swelling, nasal discharge, nose bleeding, nose congestion, nose pain, photophobia, tearing, throat pain, throat swelling, voice changes, others Respiratory: reports: shortness of breath; denies: cough, hemoptysis, orthopnea, SOB at rest, SOB with excertion, stridor, wheezing, others Cardiovascular: reports: dizzy spells, lightheadedness; denies: chest pain, diaphoresis, Dyspnea on exertion, edema, irregular heart beat, left arm pain, palpitations, PND, syncope, others Gastrointestinal: reports: abdominal pain, diarrhea, nausea; denies: abdomen distended, blood streaked bowels, constipated, dysphagia, difficulty swallowing, hematemesis, melena, poor appetite, poor fluid intake, rectal bleeding, rectal pain, vomiting, others Genitourinary: denies: burning, dysuria, flank pain, frequency, hematuria, incontinence, penile discharge, penile sore, pain, testicle pain, testicle swelling, urgency, others Neurological: reports: dizziness Musculoskeletal: denies: back pain, gout, joint pain, joint swelling, muscle pain, muscle stiffness, neck pain, others Integumetry: denies: bruises, change in color, change in hair/nails, dryness, laceration, lesions, lumps, rash, wounds, others Allergic/Immunocompromised: denies: Difficulty Healing, Frequent Infections, Hives, Itching, others Endocrine: denies: excessive hunger, excessive sweating, excessive thirst, excessive urination, flushing, intolerance to cold, intolerance to heat, unexplained weight gain, unexplained weight loss, others Psychiatric: denies: anxiety, bipolar disorder, depression, hopeless, panic disorder, schizophrenia, sleepless, suicidal, others Physical Exam General Appearance: Mild Distress HEENT: Normal ENT Inspection, Pharynx Normal, TMs Normal Neck: Full Range of Motion, Non-Tender, Normal, Normal Inspection Respiratory: Chest Non-Tender, Lungs Clear, No Accessory Muscle Use, No Respiratory Distress, Normal Breath Sounds Cardiovascular: No Edema, No JVD, No Murmur, No Gallop, Normal Peripheral Pulses, Regular Rate/Rhythm Breast Exam: Deferred Gastrointestinal: Hernia, LLQ, No Organomegaly, No Pulsatile Mass, Normal Bowel Sounds, Tenderness Genitalia: Deferred Pelvic: Deferred Rectal: Deferred Extremities: No calf tenderness, Normal capillary refill, Normal inspection, Normal range of motion, Non-tender, No pedal edema Neurologic: NOT DONE Cerebellar Function: NOT DONE Reflexes: NOT DONE Skin: NOT DONE Peripheral Pulses: 2+ carotid (R), 2+ carotid (L), 2+ femoral (R), 2+ femoral (L), 2+ dorsalis pedis (R), 2+ dorsalis pedis (L), 2+ Radial (R), 2+ Radial (L), 2+ Brachial (R), 2+ Brachial (L) Lymphatic: NOT DONE Was a procedure done? Was a procedure done?: No Differential Dx Considerations may include: Syncope, hypotension, pancreatitis, diverticulitis, colitis X-Ray, Labs, Meds, VS Vital Signs Date Time Temp Pulse Resp B/P (MAP) Pulse Ox O2 Delivery O2 Flow Rate FiO2 10/16/24 13:30 95 19 92/50 (64) 98 10/16/24 13:00 99 17 101/51 (68) 95 10/16/24 12:45 90 23 80/45 (57) 100 10/16/24 12:25 92 18 70/30 (43) 97 10/16/24 12:10 97.5 100 26 77/32 (47) 96 97.5 10/16/24 11:57 98.4 91 18 82/47 97 98.4 10/16/24 11:52 103 Lab Test 10/16/24 12:50 Range/Units White Blood Count 9.6 4.4-10.8 10^3/uL Red Blood Count 4.82 4.5-5.90 10^6/uL Hemoglobin 12.0 L 13.5-17.5 g/dL Hematocrit 37.4 L 41.0-53.0 % Mean Corpuscular Volume 77.5 L 80.0-100.0 fL Mean Corpuscular Hemoglobin 24.9 L 28.0-32.0 pg Mean Corpuscular Hemoglobin Concent 32.2 32.0-36.0 g/dL Red Cell Distribution Width 18.7 H 11.8-14.3 % Platelet Count 288 140-450 10^3/uL Mean Platelet Volume 7.9 6.9-10.8 fL Neutrophils (%) (Auto) 77.1 37.0-80.0 % Lymphocytes (%) (Auto) 13.4 10.0-50.0 % Monocytes (%) (Auto) 8.0 0.0-12.0 % Eosinophils (%) (Auto) 1.0 0.0-7.0 % Basophils (%) (Auto) 0.5 0.0-2.0 % Neutrophils # (Auto) 7.4 1.6-8.6 10 ^3/uL Lymphocytes # (Auto) 1.3 0.4-5.4 10 ^3/uL Monocytes # (Auto) 0.8 0-1.3 10 ^3/uL Eosinophils # (Auto) 0.1 0-0.8 10 ^3/uL Basophils # (Auto) 0 0-0.2 10 ^3/uL Nucleated Red Blood Cells 0.0 % Sodium Level 144 136-145 mmol/L Potassium Level 3.9 3.5-5.1 mmol/L Chloride Level 110 H 98-107 mmol/L Carbon Dioxide Level 22 20-31 mmol/L Anion Gap 12 5-15 Blood Urea Nitrogen 9 9-23 mg/dL Creatinine 1.26 0.700-1.30 mg/dL Glomerular Filtration Rate Calc 74 >90 mL/min BUN/Creatinine Ratio 7.1 L 10.0-20.0 Serum Glucose 111 H 74-106 mg/dL Lactic Acid Level 2.9 *H 0.4-2.0 mmol/L Calcium Level 8.0 L 8.7-10.4 mg/dL Magnesium Level 1.6 1.6-2.6 mg/dL Total Bilirubin 0.6 0.2-1.0 mg/dL Aspartate Amino Transferase (AST) 27 13-40 U/L Alanine Aminotransferase (ALT) 16 7-40 U/L Alkaline Phosphatase 94 46-116 U/L Troponin I High Sensitivity < 3 L </=54 ng/L Total Protein 6.5 5.7-8.2 g/dL Albumin 3.9 3.2-4.8 g/dL Lipase 36 12-53 U/L Plasma/Serum Blood Alcohol 114.6 H <10 mg/dL Current Medications Medications (Trade) Dose Ordered Sig/Addie Route Start Time Stop Time Status Last Admin Ondansetron HCl (Zofran) 4 mg ONCE ONCE IV 10/16/24 12:15 10/16/24 12:16 DC 10/16/24 12:39 Sodium Chloride 500 ml @ 500 mls/hr Q1H ONCE IV 10/16/24 12:15 10/16/24 13:14 DC 10/16/24 12:39 Sodium Chloride 1,000 ml @ 1,000 mls/hr Q1H ONCE IV 10/16/24 14:00 10/16/24 14:59 10/16/24 13:51 X-Ray, Labs, Meds, VS Comment CHEST RADIOGRAPH Indication: Chest pain Technique: Single frontal view of the chest was obtained COMPARISON: XY CHEST PORTABLE on DOS: 05/26/24, CHEST PORTABLE on DOS: 10/12/19 FINDINGS: Lines and Tubes: None Lungs: Clear Pleura: No effusion. No pneumothorax. Cardiomediastinal contours: Unremarkable Bones: Unremarkable IMPRESSION: No acute disease. ORDERING PHYSICIAN: DEIRDRE NOWAK PROCEDURE(s): ABPL - CT AB PEL WO CON-NO ORAL OR IV REASON: Epigastric pain ORDER NUMBER(s): [id number], ACCESSION NUMBER(s): [id number] Indication: Epigastric pain Technique: CT axial images of the abdomen and pelvis are obtained without contrast. Coronal and sagittal reformats were obtained. Radiation Dose Information: CTDI volume is 27.56 mGy. Dose-length product is 3.92 mGy*cm Comparison: CT ABD PELVIS WO CONTRAST on DOS: 10/13/19 FINDINGS: There is limited interpretation of the abdomen and pelvis without administration of intravenous contrast. Lung bases demonstrate atelectasis. Adrenal glands, spleen, pancreas unremarkable in shape. Liver is unremarkable in shape. No CT evidence for cholelithiasis. No hydronephrosis /nephrolithiasis. Postsurgical changes stomach/gastric bypass. Small bowel loops moderately distended. There is colonic diverticular disease. Mild stranding surrounding the sigmoid colon. Fluid distention large bowel. Bladder partially distended. No free pelvic fluid. Small bilateral fat containing inguinal hernias. No inguinal lymphadenopathy. [id number] thoracolumbar degenerative disc disease. IMPRESSION: Limited evaluation without contrast. Stranding surrounding the sigmoid colon which could represent diverticulitis, colitis. Fluid distention large bowel loops possibly related to diarrheal state. Gastrojejunostomy/gastric bypass. Other findings as described Images Reviewed?: Images reviewed and evaluated by me Time of 1ST Reevaluation: 14:01 Reevaluation 1ST: Improved Patient Education/Counseling: Diagnosis, Treatment Family Education/Counseling: No Family Present Comments This is a 39-year-old male who presented to the ED via EMS for an evaluation of syncopal episode. To the EMS the patient's blood pressure initially was low 48/31 The patient received 1 L normal saline bolus on route to hospital that increase the blood pressure to 82/47 Initial EKG demonstrated sinus tachycardia Physical examination demonstrated positive for dehydration and mild tenderness in the lower abdomen CBC and CMP were apparently unremarkable, lactic acid 2.9, lipase was normal Blood alcohol level was 114.6 CT abdomen pelvis demonstrated Stranding surrounding the sigmoid colon which could represent diverticulitis, colitis. In the ER the patient was given 1.5 L normal saline bolus, IV ondansetron 4 mg once, IV ceftriaxone 1 g once and IV metronidazole 500 mg once, and advised to continue clear liquid diet. The patient needs inpatient admission for monitoring hypotension and management of diverticulitis/colitis SEPSIS Sepsis Screen Date sepsis recognized/suspect: Oct 16, 2024 Time Sepsis recognized/suspect: 1201 Recent Procedure: No On Antibiotic Therapy: No Respiratory Rate >20: No Heart Rate >90: No Temp<36 C (96.8 F) or >38.3 C: No SBP <90 or MAP <65 mmHG: Yes New Acute Mental Status Change: No Is the patient on CPAP, BIPAP,: No Physician Orders Chest Portable (10/16/24 12:11) Urinalysis (10/16/24 12:11) Ct Ab Pel Wo Con-No Oral Or Iv (10/16/24 12:11) Drug Screen (10/16/24 12:16) Electrocardigram (10/16/24 13:01) Sodium Chloride 0.9% (10/16/24 13:30) Sodium Chloride 0.9% (10/16/24 14:00) Clear Liq Diet (10/16/24 Dinner) Ceftriaxone 1gm/50ml D5w (Rocephin) (10/16/24 14:00) Metronidazole 500mg/100ml (Flagyl 500mg/ (10/16/24 15:00) Vital Signs Date Time Temp Pulse Resp B/P (MAP) Pulse Ox O2 Delivery O2 Flow Rate FiO2 10/16/24 13:30 95 19 92/50 (64) 98 10/16/24 13:00 99 17 101/51 (68) 95 10/16/24 12:45 90 23 80/45 (57) 100 10/16/24 12:25 92 18 70/30 (43) 97 10/16/24 12:10 97.5 100 26 77/32 (47) 96 97.5 10/16/24 11:57 98.4 91 18 82/47 97 98.4 10/16/24 11:52 103 Laboratory Tests Test 10/16/24 12:50 Lactic Acid Level 2.9 mmol/L (0.4-2.0) *H White Blood Count 9.6 10^3/uL (4.4-10.8) Medications Medications Dose Ordered Sig/Addie Route Start Time Stop Time Status Last Admin Dose Admin Ondansetron HCl 4 mg ONCE ONCE IV 10/16/24 12:15 10/16/24 12:16 DC 10/16/24 12:39 Sodium Chloride 500 ml @ 500 mls/hr Q1H ONCE IV 10/16/24 12:15 10/16/24 13:14 DC 10/16/24 12:39 Sodium Chloride 1,000 ml @ 1,000 mls/hr Q1H ONCE IV 10/16/24 14:00 10/16/24 14:59 10/16/24 13:51 Departure 1 Departure Time of Disposition: 14:10 Impression: Primary Impression: Syncopal episodes Additional Impression: Diverticulitis Disposition: 30 STILL A PATIENT Admit to: Tele Condition: Guarded Critical Care Note Critical Care Time?: No Stability Stability form required: DEIRDRE Velazquez RESIDENT Oct 16, 2024 12:17
[2024-10-16] MEDS: SODIUM CHLORIDE 0.9% 500 ML IV ONE (12:39)
[2024-10-16] MEDS: ONDANSETRON HCL 4 MG/2 ML VIAL IV ONE (12:39)
[2024-10-16 13:00] VITALS: PULSE 99; RESP 26; O2SAT 97
[2024-10-16 13:05] LABS: Nucleated Red Blood Cells % 0.0 %
[2024-10-16 13:07] LABS: Hematocrit 37.4 % (41.0-53.0); Hemoglobin 12.0 g/dL (13.5-17.5); Mean Corpuscular Hemoglobin 24.9 pg (28.0-32.0); Mean Corpuscular Volume 77.5 fL (80.0-100.0)
[2024-10-16 13:15] LABS: Alanine Aminotransferase 16 U/L (7-40); Albumin 3.9 g/dL (3.2-4.8); Alkaline Phosphatase 94 U/L (46-116); Anion Gap 12 (5-15); BUN/Creatinine Ratio 7.1 (10.0-20.0); Blood Urea Nitrogen 9 mg/dL (9-23); Carbon Dioxide 22 mmol/L (20-31); Potassium 3.9 mmol/L (3.5-5.1); Sodium 144 mmol/L (136-145); Total Protein 6.5 g/dL (5.7-8.2)
[2024-10-16 13:16] LABS: Bilirubin, Total 0.6 mg/dL (0.2-1.0); Calcium 8.0 mg/dL (8.7-10.4); Chloride 110 mmol/L (98-107); Glucose 111 mg/dL (74-106)
[2024-10-16 13:21] LABS: Lactic Acid w/Reflex 2.9 mmol/L (0.4-2.0)
[2024-10-16 13:30] LABS: Magnesium 1.6 mg/dL (1.6-2.6)
--- NOTE | 2024-10-16 13:46 | DVH ---
CHEST RADIOGRAPH Indication: Chest pain Technique: Single frontal view of the chest was obtained COMPARISON: XY CHEST PORTABLE on DOS: 05/26/24, CHEST PORTABLE on DOS: 10/12/19 FINDINGS: Lines and Tubes: None Lungs: Clear Pleura: No effusion. No pneumothorax. Cardiomediastinal contours: Unremarkable Bones: Unremarkable IMPRESSION: No acute disease.
[2024-10-16 13:47] LABS: Lipase 36.0 U/L (12-53)
--- NOTE | 2024-10-16 13:49 | DVH ---
Indication: Epigastric pain Technique: CT axial images of the abdomen and pelvis are obtained without contrast. Coronal and sagit lola reformats were obtained. Radiation Dose Information: CTDI volume is 27.56 mGy. Dose-length product is 3.92 mGy*cm Comparison: CT ABD PELVIS WO CONTRAST on DOS: 10/13/19 FINDINGS: There is limited interpretation of the abdomen and pelvis without administration of intravenous contr ast. Lung bases demonstrate atelectasis. Adrenal glands, spleen, pancreas unremarkable in shape. Liver is unremarkable in shape. No CT eviden ce for cholelithiasis. No hydronephrosis /nephrolithiasis. Postsurgical changes stomach/gastric bypass. Small bowel loops moderately distended. There is colonic diverticular disease. Mild stranding surrounding the sigmoid colon. Fluid distentio n large bowel. Bladder partially distended. No free pelvic fluid. Small bilateral fat containing inguinal hernias. No inguinal lymphadenopathy. [id number] thoracolumbar degenerative disc disease. IMPRESSION: Limited evaluation without contrast. Stranding surrounding the sigmoid colon which could represent diverticulitis, colitis. Fluid distention large bowel loops possibly related to diarrheal state. Gastrojejunostomy/gastric bypass. Other findings as described
[2024-10-16] MEDS: SODIUM CHLORIDE 0.9% 1,000 ML IV ONE ×2 (13:51→15:47)
[2024-10-16] MEDS: cefTRIAXone 1GM/50ML D5W 50 ML IV ONE (14:33)
[2024-10-16] MEDS ORDERED: LORazepam 2MG/ML-1ML VIAL IV PRN (15:30)
[2024-10-16] MEDS ORDERED: NITROGLYCERIN 0.4 MG SL TAB SL PRN (15:30)
[2024-10-16] MEDS ORDERED: MORPHINE SULFATE INJ 2 MG/ml SYRG IV PRN (15:30)
--- NOTE | 2024-10-16 15:47 | DVHHPRES ---
History of Present Illness Resident Creating Document: VANGIE PHILLIPS History of Present Illness The patient is 39-year-old male with past medical history of hypertension, morbid obesity, chronic alcoholism came to the hospital with a chief complaint of sudden episode of syncopal episode. As per patient he had sudden syncopal episode around 9:00 a.m. currently in the morning today, family officer he had eyes rolled up, hitting his head. As per patient he had drinking alcohol since age 14, yesterday he drank approximately 400-500 mL of alcohol, he is trying to cut down on alcohol with alcohol cessation program however he is still continuing to drinking alcohol every day. He also complaining of mild shakiness, mild abdominal discomfort and anxious. The patient denied any other symptoms including fever, chills, chest pain, shortness of breath, any other symptoms at this point. Past medical history: Hypertension, morbid obesity, chronic alcoholism Past surgical history: Gastric Jluis-en-Y surgery Personal history: Drinks alcohol every day, has motivation to cut down on alcohol given he is on alcohol so she had a program in [place], he denies smoking or any other recreational drug use Home medication: Lisinopril 40 mg p.o. daily Family history: Lives with family Review of Systems Constitutional: No: Fever, Chills, Sweats, Weakness, Malaise, Other Eyes: No: Pain, Vision change, Conjunctivae inflammation, Eyelid inflammation, Other, Redness ENT: No: Ear pain, Ear discharge, Nose pain, Nose discharge, Nose congestion, Mouth pain, Mouth swelling, Throat pain, Throat swelling, Other Respiratory: No: Cough, Dry, Shortness of breath, SOB with excertion, Wheezing, Hemoptysis, Pleuritic Pain, Sputum, Wheezing, Other Cardiovascular: No: Chest Pain, Palpitations, Orthopnea, Paroxysmal Noc. Dyspnea, Edema, Lt Headedness, Other Gastrointestinal: Abdominal Pain Genitourinary: No Dysuria, No Frequency, No Incontinence, No Hematuria, No Rete ntion, No Other Musculoskeletal: No: other, neck pain, shoulder pain, arm pain, back pain, hand pain, leg pain, foot pain Skin: No: Rash, Lesions, Jaundice, Bruising, Other Neurological: No: Weakness, Numbness, Incoordination, Change in speech, Confusion, Seizures, Other Allergies: Coded Allergies: NO KNOWN ALLERGIES (Unverified , 10/12/19) Medications Current Medications Medications Dose Ordered Sig/Addie Route Start Time Stop Time Status Last Admin Dose Admin Nitroglycerin 0.4 mg Q5MINP PRN SL 10/16/24 15:30 UNV Morphine Sulfate 2 mg Q30M PRN IV 10/16/24 15:30 UNV Folic Acid 1 mg/ Magnesium Sulfate 8 meq/ Multivitamins 10 ml/Thiamine HCl 100 mg/Sodium Chloride 1,013.2 ml @ 126.247 mls/hr DAILY@1800 INJ 10/16/24 18:00 UNV Ceftriaxone Sodium 50 ml @ 100 mls/hr DAILY@09 IV 10/17/24 09:00 UNV Metronidazole 100 ml @ 100 mls/hr Q8HR IV 10/16/24 22:00 UNV Pantoprazole Sodium 40 mg DAILY IV 10/17/24 10:00 UNV Chlordiazepoxide HCl 50 mg Q8H PO 10/16/24 15:30 10/17/24 07:31 UNV Chlordiazepoxide HCl 50 mg Q12HR PO 10/17/24 10:00 10/17/24 22:01 UNV Chlordiazepoxide HCl 25 mg Q12HR PO 10/18/24 10:00 10/18/24 22:01 UNV Chlordiazepoxide HCl 25 mg QAM PO 10/19/24 07:00 10/19/24 07:01 UNV Lorazepam 1 mg Q5MINP PRN IV 10/16/24 15:30 UNV Exam Vital Signs Vital Signs Date Time Temp Pulse Resp B/P (MAP) Pulse Ox O2 Delivery O2 Flow Rate FiO2 10/16/24 13:30 95 19 92/50 (64) 98 10/16/24 12:10 97.5 97.5 General Appearance: Alert, Oriented X3 HEENT: Atraumatic, PERRLA, EOMI Respiratory: Clear to auscultation, Normal air movement Cardiovascular: Regular rate, Normal S1, Normal S2 Abdominal: Normal bowel sounds, Soft, No tenderness, No hepatospenomegaly Extremities: No clubbing, No cyanosis, No edema, Normal pulses, No tenderness/swelling Skin: No rashes, No breakdown, No significant lesion Neuro: Normal gait, Normal speech, Strength at 5/5 X4 ext Psych/Mental Status: Other (Anxious) Labs/Xrays Labs Test 10/16/24 12:50 Range/Units White Blood Count 9.6 4.4-10.8 10^3/uL Red Blood Count 4.82 4.5-5.90 10^6/uL Hemoglobin 12.0 L 13.5-17.5 g/dL Hematocrit 37.4 L 41.0-53.0 % Mean Corpuscular Volume 77.5 L 80.0-100.0 fL Mean Corpuscular Hemoglobin 24.9 L 28.0-32.0 pg Mean Corpuscular Hemoglobin Concent 32.2 32.0-36.0 g/dL Red Cell Distribution Width 18.7 H 11.8-14.3 % Platelet Count 288 140-450 10^3/uL Mean Platelet Volume 7.9 6.9-10.8 fL Neutrophils (%) (Auto) 77.1 37.0-80.0 % Lymphocytes (%) (Auto) 13.4 10.0-50.0 % Monocytes (%) (Auto) 8.0 0.0-12.0 % Eosinophils (%) (Auto) 1.0 0.0-7.0 % Basophils (%) (Auto) 0.5 0.0-2.0 % Neutrophils # (Auto) 7.4 1.6-8.6 10 ^3/uL Lymphocytes # (Auto) 1.3 0.4-5.4 10 ^3/uL Monocytes # (Auto) 0.8 0-1.3 10 ^3/uL Eosinophils # (Auto) 0.1 0-0.8 10 ^3/uL Basophils # (Auto) 0 0-0.2 10 ^3/uL Nucleated Red Blood Cells 0.0 % Sodium Level 144 136-145 mmol/L Potassium Level 3.9 3.5-5.1 mmol/L Chloride Level 110 H 98-107 mmol/L Carbon Dioxide Level 22 20-31 mmol/L Anion Gap 12 5-15 Blood Urea Nitrogen 9 9-23 mg/dL Creatinine 1.26 0.700-1.30 mg/dL Glomerular Filtration Rate Calc 74 >90 mL/min BUN/Creatinine Ratio 7.1 L 10.0-20.0 Serum Glucose 111 H 74-106 mg/dL Lactic Acid Level 2.9 *H 0.4-2.0 mmol/L Calcium Level 8.0 L 8.7-10.4 mg/dL Magnesium Level 1.6 1.6-2.6 mg/dL Total Bilirubin 0.6 0.2-1.0 mg/dL Aspartate Amino Transferase (AST) 27 13-40 U/L Alanine Aminotransferase (ALT) 16 7-40 U/L Alkaline Phosphatase 94 46-116 U/L Troponin I High Sensitivity < 3 L </=54 ng/L Total Protein 6.5 5.7-8.2 g/dL Albumin 3.9 3.2-4.8 g/dL Lipase 36 12-53 U/L Plasma/Serum Blood Alcohol 114.6 H <10 mg/dL SEPSIS Sepsis Screen Date sepsis recognized/suspect: Oct 16, 2024 Time Sepsis recognized/suspect: 1200 Recent Procedure: No On Antibiotic Therapy: No Respiratory Rate >20: No Heart Rate >90: No Temp<36 C (96.8 F) or >38.3 C: No SBP <90 or MAP <65 mmHG: Yes New Acute Mental Status Change: No Is the patient on CPAP, BIPAP,: No Physician Orders Chest Portable (10/16/24 12:11) Urinalysis (10/16/24 12:11) Ct Ab Pel Wo Con-No Oral Or Iv (10/16/24 12:11) Drug Screen (10/16/24 12:16) Electrocardigram (10/16/24 13:01) Sodium Chloride 0.9% (10/16/24 13:30) Clear Liq Diet (10/16/24 Dinner) Metronidazole 500mg/100ml (Flagyl 500mg/ (10/16/24 15:00) Admit (10/16/24 15:30) Nitroglycerin Sublingual (Ntrostat Subli (10/16/24 15:30) Morphine Sulfate Injection (10/16/24 15:30) Oxygen By Nasal Cannula (10/16/24 15:30) Notify Md Of Changes From Base (10/16/24 15:30) Carry Out Clerk And Shelf Stocker For 24 Hours (10/16/24 15:30) Emergency Dysrhythmia Protocol (10/16/24 15:30) Rhythm Strips Once Every Shift (10/16/24 15:30) Folic Acid... (10/16/24 18:00) Ceftriaxone 1gm/50ml D5w (Rocephin) (10/17/24 09:00) Metronidazole 500mg/100ml (Flagyl 500mg/ (10/16/24 22:00) Pantoprazole (Protonix) (10/16/24 15:30) Pantoprazole (Protonix) (10/17/24 10:00) Chlordiazepoxide Hcl Capsule (Librium Ca (10/16/24 15:30) Chlordiazepoxide Hcl Capsule (Librium Ca (10/17/24 10:00) Chlordiazepoxide Hcl Capsule (Librium Ca (10/18/24 10:00) Chlordiazepoxide Hcl Capsule (Librium Ca (10/19/24 07:00) Lorazepam 2mg/Ml Inj (Ativan Inj) (10/16/24 15:30) Magnesium Kale (10/16/24 15:45) Vital Signs Date Time Temp Pulse Resp B/P (MAP) Pulse Ox O2 Delivery O2 Flow Rate FiO2 10/16/24 13:30 95 19 92/50 (64) 98 10/16/24 13:00 99 17 101/51 (68) 95 10/16/24 12:45 90 23 80/45 (57) 100 10/16/24 12:25 92 18 70/30 (43) 97 10/16/24 12:10 97.5 100 26 77/32 (47) 96 97.5 10/16/24 11:57 98.4 91 18 82/47 97 98.4 10/16/24 11:52 103 Laboratory Tests Test 10/16/24 12:50 Lactic Acid Level 2.9 mmol/L (0.4-2.0) *H White Blood Count 9.6 10^3/uL (4.4-10.8) Medications Medications Dose Ordered Sig/Addie Route Start Time Stop Time Status Last Admin Dose Admin Ceftriaxone Sodium 50 ml @ 100 mls/hr ONCE ONCE IV 10/16/24 14:00 10/16/24 14:29 DC 10/16/24 14:33 100 MLS/HR Metronidazole 100 ml @ 100 mls/hr ONCE ONCE IV 10/16/24 15:00 10/16/24 15:59 10/16/24 14:40 100 MLS/HR Ondansetron HCl 4 mg ONCE ONCE IV 10/16/24 12:15 10/16/24 12:16 DC 10/16/24 12:39 4 MG Sodium Chloride 500 ml @ 500 mls/hr Q1H ONCE IV 10/16/24 12:15 10/16/24 13:14 DC 10/16/24 12:39 500 MLS/HR Sodium Chloride 1,000 ml @ 1,000 mls/hr Q1H ONCE IV 10/16/24 14:00 10/16/24 14:59 DC 10/16/24 13:51 1,000 MLS/HR Reassessment Post Fluid SEPSIS FOCUS EXAM(REASSESSMENT Reassessment done at 3:00 p.m.. The patient does not have tachycardia, respiratory rate around 10-11, blood pressure 140/90 mm hg. Date of Reassessment: Oct 16, 2024 Assessment/Plan Assessment/Plan Syncopal episode likely due to alcohol intoxication Alcohol withdrawal CIWA score 4 Sepsis due to acute colitis Acute diverticulitis Morbid obesity Lactic acidosis Alcohol intoxication with serum alcohol level 114.6 Mild hypomagnesemia History of gastric Jluis-en-Y bypass Plan/recommendation -Librium protocol for alcohol withdrawal, IV fluid with banana bag -repeat lactic acidosis, pending blood culture. -IV antibiotic with ceftriaxone and metronidazole -CT scan of the abdomen showed possible acute diverticulitis/colitis -chest x-ray: No signs of acute intrathoracic abnormality. -clear liquid diet -PUD prophylaxis with Protonix -order CT scan given patient hit his head, syncopal episode. Goals of care discussed greater than 22 minutes, full code status. Plan discussed with Dr Ricketts Plan discussed with: Patient, Other (RN) My Orders Orders - VANGIE PHILLIPS RESIDENT Procedure Category Date Status Time Admit ADMIT 10/16/24 Transmitted 15:30 Nitroglycerin [facility] 10/16/24 Logged Sublingual (Ntrostat 15:30 Morphine Sulfate PHA 10/16/24 Logged Injection 15:30 Oxygen By Nasal RT 10/16/24 Transmitted Cannula 15:30 Notify Of Changes [facility] 10/16/24 In Process From Base 15:30 Carry Out Clerk And Shelf Stocker For [facility] 10/16/24 In Process 24 Hours 15:30 Emergency Dysrhythmia [facility] 10/16/24 In Process Protocol 15:30 Rhythm Strips Once [facility] 10/16/24 In Process Every Shift 15:30 Folic Acid... PHA 10/16/24 Logged 18:00 Ceftriaxone 1gm/50ml PHA 10/17/24 Logged D5w (Rocephin) 09:00 Metronidazole PHA 10/16/24 Logged 500mg/100ml (Flagyl 22:00 Pantoprazole PHA 10/16/24 Logged (Protonix) 15:30 Pantoprazole PHA 10/17/24 Logged (Protonix) 10:00 Chlordiazepoxide Hcl PHA 10/16/24 Logged Capsule (Librium Ca 15:30 Chlordiazepoxide Hcl PHA 10/17/24 Logged Capsule (Librium Ca 10:00 Chlordiazepoxide Hcl PHA 10/18/24 Logged Capsule (Librium Ca 10:00 Chlordiazepoxide Hcl PHA 10/19/24 Logged Capsule (Librium Ca 07:00 Lorazepam 2mg/Ml Inj PHA 10/16/24 Logged (Ativan Inj) 15:30 Magnesium Kale PHA 10/16/24 Transmitted 15:45 Date of Service: Oct 16, 2024 Billing Provider: DIGNA RICKETTS MD, HIREN RESIDENT Oct 16, 2024 15:47
[2024-10-16] MEDS: PANTOPRAZOLE 40 MG/10 ML VIAL INJ IV ONE (16:08)
[2024-10-16] MEDS: MAGNESIUM SULFATE 1GM/100ML 100 ML IV ONE (16:09)
--- NOTE | 2024-10-16 16:23 | DVH ---
EXAM: CT HEAD WITHOUT CONTRAST INDICATION: Syncope TECHNIQUE: CT of the head without intravenous contrast. Coronal and sagittal reformatted images are s ubmitted. Radiation Dose : 1. Head: CT Dose: CTDI volume is 52.71 mGy. Dose-length product is 539.94 mGy*cm The dose indicators for CT are the volume Computed Tomography (CT) Dose Index (CTDIvol) and the Dose Length Product (DLP), and are measured in units of mGy and mGy-cm, respectively. These indicators are not patient dose, but values generated from the CT scanner acquisition factors. The report includes radiation exposure data for exposures received during this examination. All CT scans at this medical facility are performed using dose modulation techniques as appropriate to a performed exam including the following: Automated exposure control was utilized; adjustment of the MA and/or KV according to patient size; and use of iterative reconstruction technique. COMPARISON: None FINDINGS: There is no evidence of acute intracranial hemorrhage, extra-axial collection, mass effect, midline s hift, herniation or hydrocephalus. The ventricles, sulci and cisterns are age appropriate. The leon-white differentiation is intact. There is mucosal thickening in the ethmoid air cells. Mucosal thickening in the sphenoid sinus. No depressed calvarial fracture. Left parietal scalp soft tissue swelling. IMPRESSION: 1. No acute intracranial abnormality. 2. Left parietal scalp soft tissue swelling.
[2024-10-16 19:30] VITALS: PULSE 97; RESP 11; O2SAT 95
[2024-10-16] MEDS: FOLIC ACID 1 MG, MAGNESIUM SULF SDV 50% 8 MEQ, MULTIPLE VITAMIN 10 ML, THIAMINE INJ 100... INJ SCH (20:56)
[2024-10-16] MEDS: GENTAMICIN OPTH sol 0.3% 5ml EACHEYE SCH (20:58)
[2024-10-17 05:01] LABS: Hematocrit 33.8 % (41.0-53.0); Hemoglobin 11.1 g/dL (13.5-17.5); Mean Corpuscular Hemoglobin 25.6 pg (28.0-32.0); Mean Corpuscular Volume 77.7 fL (80.0-100.0); Nucleated Red Blood Cells % 0.1 %
[2024-10-17 05:18] LABS: Alanine Aminotransferase 10 U/L (7-40); Alkaline Phosphatase 87 U/L (46-116); Carbon Dioxide 22 mmol/L (20-31)
[2024-10-17 05:19] LABS: Albumin 3.6 g/dL (3.2-4.8); Anion Gap 9 (5-15); BUN/Creatinine Ratio 5.7 (10.0-20.0); Bilirubin, Total 1.2 mg/dL (0.2-1.0); Blood Urea Nitrogen 6 mg/dL (9-23); Calcium 7.7 mg/dL (8.7-10.4); Chloride 107 mmol/L (98-107); Glucose 99 mg/dL (74-106); Magnesium 1.5 mg/dL (1.6-2.6); Potassium 3.6 mmol/L (3.5-5.1); Sodium 138 mmol/L (136-145); Total Protein 6.0 g/dL (5.7-8.2)
[2024-10-17 08:00] VITALS: PULSE 74; RESP 20; O2SAT 94
[2024-10-17] MEDS: cefTRIAXone 1GM/50ML D5W 50 ML IV SCH (09:29)
[2024-10-17] MEDS: PANTOPRAZOLE 40 MG/10 ML VIAL INJ IV SCH (09:30)
[2024-10-17 12:26] LABS: Urine Protein, UAD Negative (Negative)
[2024-10-17 12:38] LABS: Amphetamine Screen, Urine Neg (NEGATIVE); Barbiturate Scree,Urine Neg (NEGATIVE); Benzodiazephine Screen, Urine Neg (NEGATIVE); Cannabinoid Screen, Urine Neg (NEGATIVE); Cocaine Screen, Urine Neg (NEGATIVE); Opiate Scree,Urine Neg (NEGATIVE); Phencyclidine Screen, Urine Neg (NEGATIVE)
[2024-10-17 13:38] VITALS: BP 164/104; PULSE 74; RESP 20; TEMP 97.6; O2SAT 96
[2024-10-17 16:28] VITALS: PULSE 74; RESP 20; O2SAT 96
[2024-10-17] MEDS: LISINOPRIL 20 MG TAB PO SCH (16:30)
[2024-10-17] MEDS ORDERED: LISI40TA16 PO (17:19)
[2024-10-17] MEDS: IBUPROFEN 600 MG TAB PO ONE (18:38)
--- NOTE | 2024-10-17 19:42 | DVHPN2 ---
Subjective FEELS BETTER Reviewed: Care Plan, H&P, Labs, Medications, Previous Orders, Radiology Changes from previous H/P or p: No Changes Objective Vitals Vital Signs Date Time Temp Pulse Resp B/P (MAP) Pulse Ox O2 Delivery O2 Flow Rate FiO2 10/17/24 16:30 164/104 10/17/24 16:28 74 20 96 Room Air* 0 21 10/17/24 15:34 98.0 98.0 Intake/Output Intake and Output 10/17/24 07:00 Intake Total 2100 ml Balance 2100 ml IV Total 2100 ml General Appearance: Alert, Oriented X3, Cooperative, No acute distress HEENT: Atraumatic Lungs: Clear to auscultation Cardiovascular: Regular rate Abdomen: Normal bowel sounds, Soft, Other Medications Current Medications Medications Dose Ordered Sig/Addie Route Start Time Stop Time Status Last Admin Dose Admin Nitroglycerin 0.4 mg Q5MINP PRN SL 10/16/24 15:30 Morphine Sulfate 2 mg Q30M PRN IV 10/16/24 15:30 Folic Acid 1 mg/ Magnesium Sulfate 8 meq/ Multivitamins 10 ml/Thiamine HCl 100 mg/Sodium Chloride 1,013.2 ml @ 126.247 mls/hr DAILY@1800 INJ 10/16/24 18:00 10/17/24 18:46 126.247 MLS/HR Ceftriaxone Sodium 50 ml @ 100 mls/hr DAILY@09 IV 10/17/24 09:00 10/17/24 09:29 100 MLS/HR Metronidazole 100 ml @ 100 mls/hr Q8HR IV 10/16/24 22:00 10/17/24 15:21 100 MLS/HR Pantoprazole Sodium 40 mg DAILY IV 10/17/24 10:00 10/17/24 09:30 40 MG Chlordiazepoxide HCl 50 mg Q12H PO 10/17/24 18:00 10/18/24 06:01 Chlordiazepoxide HCl 25 mg Q12H PO 10/18/24 18:00 10/19/24 06:01 Chlordiazepoxide HCl 25 mg QAM PO 10/20/24 06:00 10/20/24 07:00 Lorazepam 1 mg Q5MINP PRN IV 10/16/24 15:30 Gentamicin Sulfate 1 drop Q4HR EACHEYE 10/16/24 18:00 10/17/24 18:38 1 DROP Lisinopril 20 mg BID PO 10/17/24 15:45 10/17/24 16:30 20 MG Laboratory Results Laboratory Tests 10/17/24 04:41 Chemistry Test 10/17/24 04:41 Albumin 3.6 g/dL (3.2-4.8) Calcium Level 7.7 mg/dL (8.7-10.4) L Magnesium Level 1.5 mg/dL (1.6-2.6) L Total Protein 6.0 g/dL (5.7-8.2) LFT Test 10/17/24 04:41 Alanine Aminotransferase (ALT) 10 U/L (7-40) Alkaline Phosphatase 87 U/L (46-116) Aspartate Amino Transferase (AST) 24 U/L (13-40) Total Bilirubin 1.2 mg/dL (0.2-1.0) H Urinalysis Test 10/17/24 11:50 Urine Color Light-yellow (Yellow) Urine Clarity Clear (Clear) Urine pH 5.5 (5.0-9.0) Urine Specific [place] 1.012 (1.001-1.035) Urine Protein Negative (Negative) Urine Ketones Trace (Negative) Urine Blood Negative /uL (Negative) Urine Nitrite Negative (Negative) Urine Bilirubin Negative (Negative) Urine Urobilinogen Normal mg/dL (Negative) Urine Leukocyte Esterase Negative /uL (Negative) Urine Glucose Normal mg/dL (Normal) Assessment/Plan Assessment/Plan ACUTE DIVERTICULITIS /colitis SYNCOPE Hypertension Morbid obesity History of gastric bypass/Jluis-en-Y Alcoholism and withdrawal Hypomagnesemia Plan: Continue current plan of care. Repeat labs. Librium for withdrawal. IV fluids. IV antibiotics. Lisinopril for the blood pressure. Further plan per orders Plan discussed with: Patient My Orders Orders - FILOMENA MARTINEZ MD Procedure Category Date Status Time Lisinopril Tablet PHA 10/17/24 In Process (Zestril Tablet) 15:45 Date of Service: Oct 17, 2024 Billing Provider: FILOMENA MARTINEZ MD Common Visit Codes: [id number] INP/OBS CARE(HIGH) FILOMENA MARTINEZ MD Oct 17, 2024 19:42
[2024-10-17 20:00] VITALS: PULSE 68; RESP 19; O2SAT 97
[2024-10-17 20:46] VITALS: BP 163/91; PULSE 105; RESP 19; TEMP 99.5; O2SAT 97
[2024-10-17] MEDS ORDERED: LISINOPRIL 20 MG TAB PO SCH (22:00)
[2024-10-18] VITALS (9 sets, daily range): BP systolic 143–159; BP diastolic 93–112; PULSE 65–114; RESP 16–20; TEMP 97.4–98.3; O2SAT 90–98
[2024-10-18 07:18] LABS: Nucleated Red Blood Cells % 0.2 %
[2024-10-18 07:19] LABS: Hematocrit 30.8 % (41.0-53.0); Hemoglobin 10.0 g/dL (13.5-17.5); Mean Corpuscular Hemoglobin 25.5 pg (28.0-32.0); Mean Corpuscular Volume 78.3 fL (80.0-100.0)
[2024-10-18 07:39] LABS: Albumin 3.4 g/dL (3.2-4.8); Alkaline Phosphatase 75 U/L (46-116); Anion Gap 9 (5-15); Bilirubin, Total 0.9 mg/dL (0.2-1.0); Carbon Dioxide 25 mmol/L (20-31); Glucose 87 mg/dL (74-106); Potassium 4.0 mmol/L (3.5-5.1); Sodium 142 mmol/L (136-145)
[2024-10-18 07:40] LABS: Alanine Aminotransferase < 9 U/L (7-40); BUN/Creatinine Ratio 5.8 (10.0-20.0); Blood Urea Nitrogen < 5 mg/dL (9-23); Calcium 8.1 mg/dL (8.7-10.4); Chloride 108 mmol/L (98-107); Total Protein 5.7 g/dL (5.7-8.2)
--- NOTE | 2024-10-18 14:01 | DVHPNRES ---
Progress Note Date Seen: Oct 18, 2024 Resident Creating Document: [place] RESIDENT Medical Necessity Reason Pt with a Central, PICC or Fol: No Subjective Review of Systems Patient is a 39-year-old male with past medical history of hypertension, obesity, alcohol use disorder, who came in due to a sudden episode of syncope, per patient, he had syncopal episode in the a.m., family noticed his eyes rolling up while he sustained a fall hitting his head. Patient notes that he has been heavily drinking alcohol since the age of 14 and also had a few drinks right before the syncopal episode per patient he has been trying to cut down however has been unsuccessful in doing so and continues to drink alcohol daily. On arrival patient was also noted to have mild shakiness along with the abdominal discomfort and some anxiety. On admission patient was noted to have a CIWA score of 4 and was started on Librium per protocol, banana bag, folic acid and multivitamin. CT scan confirmed diverticulitis, colitis. Past surgical history: Gastric Jluis-en-Y surgery Personal history: Drinks alcohol every day, has motivation to cut down on alcohol given he is on alcohol so she had a program in [place], he denies smoking or any other recreational drug use Home medication: Lisinopril 40 mg p.o. daily Family history: Lives with family Patient seen and examined at bedside. Patient is alert and oriented to time, place person and responding to all questions. Patient notes he had 4 episodes of watery bowel movement in the past 24 hours, denies any nausea and vomiting. Patient requesting to increase diet. Patient advanced to a full liquid diet with low fiber. Objective vital signs Vital Sign Date Time Temp Pulse Resp B/P (MAP) Pulse Ox O2 Delivery O2 Flow Rate FiO2 10/18/24 09:28 158/106 10/18/24 09:00 97.5 73 20 97 97.5 10/17/24 20:00 Room Air* 0 21 Total Intake and Output 10/17/24 10/17/24 10/18/24 15:00 23:00 07:00 Intake Total 150 ml 330 ml 1750 ml Balance 150 ml 330 ml 1750 ml medications Current Medications Medications Dose Ordered Sig/Addie Route Start Time Stop Time Status Last Admin Dose Admin Nitroglycerin 0.4 mg Q5MINP PRN SL 10/16/24 15:30 Morphine Sulfate 2 mg Q30M PRN IV 10/16/24 15:30 Ceftriaxone Sodium 50 ml @ 100 mls/hr DAILY@09 IV 10/17/24 09:00 10/18/24 09:27 100 MLS/HR Metronidazole 100 ml @ 100 mls/hr Q8HR IV 10/16/24 22:00 10/18/24 05:37 100 MLS/HR Pantoprazole Sodium 40 mg DAILY IV 10/17/24 10:00 10/18/24 09:27 40 MG Chlordiazepoxide HCl 25 mg Q12H PO 10/18/24 18:00 10/19/24 06:01 Chlordiazepoxide HCl 25 mg QAM PO 10/20/24 06:00 10/20/24 07:00 Lorazepam 1 mg Q5MINP PRN IV 10/16/24 15:30 Gentamicin Sulfate 1 drop Q4HR EACHEYE 10/16/24 18:00 10/18/24 05:37 1 DROP Lisinopril 20 mg BID PO 10/17/24 15:45 10/18/24 09:28 20 MG Folic Acid 1 mg/ Magnesium Sulfate 8 meq/ Multivitamins 10 ml/Thiamine HCl 100 mg/Sodium Chloride 1,013.2 ml @ 126.247 mls/hr DAILY@1800 INJ 10/18/24 18:00 Examination General Appearance: Cooperative. Well developed. Well nourished. NAD Head Exam: Normal inspection Neck Exam: Normal inspection. Non-tender. Normal alignment Pulmonary/Respiratory: Chest non-tender. Clear bilateral breath sounds, no crackles, no wheezing. Cardiovascular/Chest: Regular rate and rhythm. No murmurs. No JVD. Peripheral Pulses: 2+ Radial (R). 2+ Radial (L). 2+ Pedal (R). 2+ Pedal (L) Abdominal Exam: Normal bowel sounds. Generalized abdominal tenderness to palpation most pronounced in the left upper and lower quadrant Ankle Exam: Negative ankle edema Lower extremities: Negative lower extremity edema Neuro/Mental Status: A&O x4. Coherent. Thoughts/Psych: Normal thought pattern. Appropriate mood and affect. Good judgement and insight Skin Exam: Normal inspection. Normal color. Warm. Dry laboratory and microbiology Laboratory Tests 10/18/24 05:22 Test 10/18/24 05:22 Range/Units Serum Glucose 87 74-106 mg/dL Labs and/or images reviewed: Labs reviewed by me, Image(s) reviewed by me Problem List/Assessment/Plan Problem List/Assessment/Plan Acute diverticulitis Sepsis due to above - IV banana bag - IV metronidazole, IV ceftriaxone - CT abdomen pelvis: Stranding surrounding the sigmoid colon which could represent diverticulitis, colitis. Flu distention large bowel loops possibly related diarrheal state. Gastrojejunostomy/gastric bypass. - advanced to a full liquid diet with low fiber S/p mechanical fall due to alcohol intoxication Left parietal scalp soft tissue swelling due to above - head CT: No acute intracranial abnormality. Left parietal scalp soft tissue swelling. Alcohol use disorder Alcohol intoxication with serum alcohol level 114.6 Syncopal episode likely due to above - IV banana bag - folic acid injection - multivitamin - lorazepam 1 mg as needed for seizures - Librium per protocol Essential hypertension - resumed home medication lisinopril 20 mg b.i.d. - IV hydralazine 10 mg once Obesity class 3 - counseled History of Jluis-en-Y bypass - monitor Hypomagnesemia - repleted PUD prophylaxis: protonix 40mg DVT prophylaxis: SCDs Goals of care: Full code, discussed for >16 minutes on 10/18/2024 Plan discussed with patient Plan discussed with Dr. Martinez Plan discussed with: Patient, Other (Mother, RN) My Orders My Orders Orders - [place] RESIDENT Procedure Category Date Status Time Full Liq Diet DIET 10/18/24 Transmitted Lunch Dietary Evaluation Review Recommendations by RD: Dietary education by RD Comments: 1) Continue micronutrient supplementation 2) Advance to low residue cardiac diet wehn medically feasible 3) Refer to outpatient RD for weight management 4) Follow-up with gastroenterology 5) Follow-up with social work associate r/t ETOH abuse 6) Continue to monitor I&O, labs, and skin integrity Expected Outcomes/Goals: 1) appetite and labs to improve 2) diet to advance 3) gradual wt loss 4) f/u in 3-5 days Date of Service: Oct 18, 2024 Billing Provider: FILOMENA MARTINEZ MD Common Visit Codes: [id number] INP/OBS CARE(HIGH) [place] Oct 18, 2024 14:01 FILOMENA MARTINEZ MD Oct 18, 2024 17:57
[2024-10-18] MEDS: hydrALAZINE HCL 20 MG/ML VL IV ONE ×2 (15:58→23:57)
[2024-10-18] MEDS: FOLIC ACID 1 MG, MAGNESIUM SULF SDV 50% 8 MEQ, MULTIPLE VITAMIN 10 ML, THIAMINE INJ 100... INJ SCH (18:28)
[2024-10-18] MEDS: SODIUM CHLORIDE 0.9% 1,000 ML IV SCH (19:30)
[2024-10-19] VITALS (7 sets, daily range): BP systolic 138–163; BP diastolic 86–109; PULSE 73–118; RESP 17–20; TEMP 97.6–98.4; O2SAT 96–98
[2024-10-19 06:33] LABS: Hematocrit 32.6 % (41.0-53.0); Hemoglobin 10.6 g/dL (13.5-17.5); Mean Corpuscular Hemoglobin 25.2 pg (28.0-32.0); Mean Corpuscular Volume 77.1 fL (80.0-100.0); Nucleated Red Blood Cells % 0.3 %
[2024-10-19 06:37] LABS: Anion Gap 9 (5-15); Carbon Dioxide 24 mmol/L (20-31); Chloride 107 mmol/L (98-107); Sodium 140 mmol/L (136-145)
[2024-10-19 06:43] LABS: BUN/Creatinine Ratio 9.2 (10.0-20.0); Glucose 90 mg/dL (74-106)
[2024-10-19 06:45] LABS: Blood Urea Nitrogen 6 mg/dL (9-23); Calcium 8.3 mg/dL (8.7-10.4); Potassium 3.4 mmol/L (3.5-5.1)
--- NOTE | 2024-10-19 07:42 | ECG ---
[facility] Test Date: 2024-10-16 Test Time: 11:51:10 Pat Name: BHUMIKA COLBY Department: [facility] ED Room: 0271T A Gender: M Manager Metrology: BELÉN : 1985 Requested By: DEIRDRE NOWAK Order Number: [id number] Reading MD: Schuyler Schmidt Measurements Intervals [place] Rate: 103 P: 42 CT: 144 QRS: 23 QRSD: 80 T: -1 QT: 352 QTc: 461 Interpretive Statements Sinus tachycardia Abnormal R-wave progression, early transition Electronically Signed On 10-19-2024 18:15:29 PDT by Schuyler Schmidt Please click the below link to view image of tracing.
[2024-10-19] MEDS: ACETAMINOPHEN 325 MG TAB PO PRN (08:11)
[2024-10-19] MEDS: POTASSIUM CHL 20 Meq TABLET PO ONE (09:00)
--- NOTE | 2024-10-19 14:34 | DVHPNRES ---
Progress Note Date Seen: Oct 19, 2024 Resident Creating Document: [place] RES[place] Medical Necessity Reason Pt with a Central, PICC or Fol: No Subjective Review of Systems Patient is a 39-year-old male with past medical history of hypertension, obesity, alcohol use disorder, who came in due to a sudden episode of syncope, per patient, he had syncopal episode in the a.m., family noticed his eyes rolling up while he sustained a fall hitting his head. Patient notes that he has been heavily drinking alcohol since the age of 14 and also had a few drinks right before the syncopal episode per patient he has been trying to cut down however has been unsuccessful in doing so and continues to drink alcohol daily. On arrival patient was also noted to have mild shakiness along with the abdominal discomfort and some anxiety. On admission patient was noted to have a CIWA score of 4 and was started on Librium per protocol, banana bag, folic acid and multivitamin. CT scan confirmed diverticulitis, colitis. Past surgical history: Gastric Jluis-en-Y surgery Personal history: Drinks alcohol every day, has motivation to cut down on alcohol given he is on alcohol so she had a program in [place], he denies smoking or any other recreational drug use Home medication: Lisinopril 40 mg p.o. daily Family history: Lives with family Patient seen and examined at bedside. Patient is alert and oriented to time, place person and responding to all questions. Patient notes he had 4 episodes of watery bowel movement in the past 24 hours, denies any nausea and vomiting. Patient requesting to increase diet. Patient advanced to a full liquid diet with low fiber. 10/19/2024: Patient reports 4 bowel movements in the past 24 hours, slowly forming. Denies any blood in stools, denies any nausea or vomiting. Continues to note headache, anxiety and insomnia. Advanced to a soft diet. Convince patient to take Librium per protocol as prescribed, patient demonstrated understanding. Thiamine, folic acid and multivitamin. Objective vital signs Vital Sign Date Time Temp Pulse Resp B/P (MAP) Pulse Ox O2 Delivery O2 Flow Rate FiO2 10/19/24 10:16 179/120 10/19/24 09:00 97.6 91 20 98 97.6 10/18/24 20:00 Room Air* 0 21 Total Intake and Output 10/18/24 10/18/2425 15:00 23:00 07:00 Intake Total 1350.4 ml 700 ml Output Total 800 ml Balance 1350.4 ml -100 ml medications Current Medications Medications Dose Ordered Sig/Addie Route Start Time Stop Time Status Last Admin Dose Admin Nitroglycerin 0.4 mg Q5MINP PRN SL 10/16/24 15:30 Morphine Sulfate 2 mg Q30M PRN IV 10/16/24 15:30 Ceftriaxone Sodium 50 ml @ 100 mls/hr DAILY@09 IV 10/17/24 09:00 10/19/24 09:00 100 MLS/HR Metronidazole 100 ml @ 100 mls/hr Q8HR IV 10/16/24 22:00 10/19/24 14:17 100 MLS/HR Pantoprazole Sodium 40 mg DAILY IV 10/17/24 10:00 10/19/24 10:16 40 MG Lorazepam 1 mg Q5MINP PRN IV 10/16/24 15:30 Gentamicin Sulfate 1 drop Q4HR EACHEYE 10/16/24 18:00 10/19/24 10:16 1 DROP Lisinopril 20 mg BID PO 10/17/24 15:45 10/19/24 10:16 20 MG Folic Acid 1 mg/ Magnesium Sulfate 8 meq/ Multivitamins 10 ml/Thiamine HCl 100 mg/Sodium Chloride 1,013.2 ml @ 126.247 mls/hr DAILY@1800 INJ 10/18/24 18:00 10/18/24 18:28 126.247 MLS/HR Sodium Chloride 1,000 ml @ 100 mls/hr Q10H IV 10/18/24 19:30 Acetaminophen 325 mg Q4HP PRN PO 10/19/24 07:45 10/19/24 08:11 325 MG Chlordiazepoxide HCl 50 mg Q8H PO 10/19/24 10:30 10/19/24 18:31 10/19/24 10:39 50 MG Chlordiazepoxide HCl 50 mg Q12HR PO 10/20/24 10:00 10/20/24 22:01 Chlordiazepoxide HCl 25 mg Q12HR PO 10/21/24 10:00 10/21/24 22:01 Chlordiazepoxide HCl 25 mg QAM PO 10/22/24 07:00 10/22/24 07:01 Examination General Appearance: Cooperative. Well developed. Well nourished. Mild distress, no tremors Head Exam: Normal inspection Neck Exam: Normal inspection. Non-tender. Normal alignment Pulmonary/Respiratory: Chest non-tender. Clear bilateral breath sounds, no crackles, no wheezing. Cardiovascular/Chest: Regular rate and rhythm. No murmurs. No JVD. Peripheral Pulses: 2+ Radial (R). 2+ Radial (L). 2+ Pedal (R). 2+ Pedal (L) Abdominal Exam: Normal bowel sounds. Generalized abdominal tenderness to palpation most pronounced in the left upper and lower quadrant Ankle Exam: Negative ankle edema Lower extremities: Negative lower extremity edema Neuro/Mental Status: A&O x4. Coherent. Thoughts/Psych: Normal thought pattern. Appropriate mood and affect. Good judgement and insight Skin Exam: Normal inspection. Normal color. Warm. Dry laboratory and microbiology Laboratory Tests 10/19/24 05:04 Test 10/19/24 05:04 Range/Units Serum Glucose 90 74-106 mg/dL Labs and/or images reviewed: Labs reviewed by me, Image(s) reviewed by me Problem List/Assessment/Plan Problem List/Assessment/Plan Acute diverticulitis Sepsis due to above - IV banana bag - IV metronidazole, IV ceftriaxone - CT abdomen pelvis: Stranding surrounding the sigmoid colon which could represent diverticulitis, colitis. Flu distention large bowel loops possibly related diarrheal state. Gastrojejunostomy/gastric bypass. - advanced to a soft diet S/p mechanical fall due to alcohol intoxication Left parietal scalp soft tissue swelling due to above - head CT: No acute intracranial abnormality. Left parietal scalp soft tissue swelling. Alcohol use disorder Alcohol intoxication with serum alcohol level 114.6 Syncopal episode likely due to above - IV banana bag - folic acid injection - thiamine - multivitamin - lorazepam 1 mg as needed for seizures - Librium per protocol Essential hypertension - resumed home medication lisinopril 20 mg b.i.d. - IV hydralazine 10 mg once - added hydrochlorothiazide 12.5 mg p.o. daily Obesity class 3 - counseled History of Jluis-en-Y bypass - monitor Hypomagnesemia - repleted PUD prophylaxis: protonix 40mg DVT prophylaxis: SCDs Goals of care: Full code, discussed for >16 minutes on 10/18/2024 Plan discussed with patient Plan discussed with Dr. Ricketts Plan discussed with: Patient, Other (RN) My Orders My Orders Orders - [place] RESIDENT Procedure Category Date Status Time Clostridium Difficile NONI 10/18/24 Uncollected Toxin 19:24 Sodium Chloride 0.9% PHA 10/18/24 In Process 19:30 Communication Order ORDERS 10/19/24 Transmitted 06:40 Acetaminophen Tablet PHA 10/19/24 In Process (Tylenol Tablet) 07:45 Chlordiazepoxide Hcl PHA 10/19/24 In Process Capsule (Librium Ca 10:30 Chlordiazepoxide Hcl PHA 10/20/24 In Process Capsule (Librium Ca 10:00 Chlordiazepoxide Hcl PHA 10/21/24 In Process Capsule (Librium Ca 10:00 Chlordiazepoxide Hcl PHA 10/22/24 In Process Capsule (Librium Ca 07:00 Dietary Evaluation Review Recommendations by RD: Dietary education by RD Comments: 1) Continue micronutrient supplementation 2) Advance to low residue cardiac diet wehn medically feasible 3) Refer to outpatient RD for weight management 4) Follow-up with gastroenterology 5) Follow-up with social studies teacher r/t ETOH abuse 6) Continue to monitor I&O, labs, and skin integrity Expected Outcomes/Goals: 1) appetite and labs to improve 2) diet to advance 3) gradual wt loss 4) f/u in 3-5 days Date of Service: Oct 19, 2024 Billing Provider: DIGNA RICKETTS MD Common Visit Codes: [id number] INP/OBS CARE(HIGH) [place] Oct 19, 2024 14:33 DIGNA RICKETTS MD Oct 22, 2024 20:41
[2024-10-19] MEDS: hydroCHLOROthiazide 25 MG TAB PO SCH (15:15)
[2024-10-19] MEDS: MAGNESIUM OXIDE 400 MG TAB PO ONE (15:15)
[2024-10-19] MEDS: MULTIPLE VITAMIN TAB PO ONE (15:15)
[2024-10-19] MEDS: THIAMINE HCL 100 MG TAB PO ONE (15:15)
[2024-10-19] MEDS: FOLIC ACID 1 MG TAB PO ONE (15:15)
[2024-10-20 01:12] VITALS: BP 149/100; PULSE 77; RESP 17; TEMP 97.8; O2SAT 98
[2024-10-20 05:06] VITALS: BP 144/99; PULSE 61; RESP 18; TEMP 97.8; O2SAT 99
[2024-10-20 07:30] VITALS: RESP 18
[2024-10-20 09:00] VITALS: BP 142/88; PULSE 103; RESP 20; TEMP 98.3; O2SAT 98
[2024-10-20] MEDS: MULTIPLE VITAMIN TAB PO SCH (09:19)
[2024-10-20] MEDS: FOLIC ACID 1 MG TAB PO SCH (09:19)
[2024-10-20] MEDS: THIAMINE HCL 100 MG TAB PO SCH (09:20)
[2024-10-20] MEDS: MAGNESIUM OXIDE 400 MG TAB PO SCH (09:21)
[2024-10-20 10:12] LABS: Hematocrit 36.8 % (41.0-53.0); Hemoglobin 11.9 g/dL (13.5-17.5); Nucleated Red Blood Cells % 0.1 %
[2024-10-20 10:13] LABS: Chloride 107 mmol/L (98-107); Sodium 140 mmol/L (136-145)
[2024-10-20 10:14] LABS: Anion Gap 9 (5-15); Carbon Dioxide 24 mmol/L (20-31)
[2024-10-20 10:15] LABS: Calcium 9.2 mg/dL (8.7-10.4)
[2024-10-20 10:16] LABS: Mean Corpuscular Hemoglobin 25.4 pg (28.0-32.0); Mean Corpuscular Volume 78.2 fL (80.0-100.0)
[2024-10-20 10:19] LABS: Glucose 90 mg/dL (74-106)
[2024-10-20 10:20] LABS: BUN/Creatinine Ratio 6.9 (10.0-20.0)
[2024-10-20 10:21] LABS: Blood Urea Nitrogen 5 mg/dL (9-23); Potassium 3.5 mmol/L (3.5-5.1)
[2024-10-20] MEDS ORDERED: FOLI-119 PO (11:54)
[2024-10-20] MEDS ORDERED: MET500T PO (11:54)
[2024-10-20] MEDS ORDERED: THIA100T10 PO (11:54)
[2024-10-20] MEDS ORDERED: MULTTAB99 PO (11:54)
[2024-10-20] MEDS ORDERED: HYDR25TA5 PO (11:54)
[2024-10-20] MEDS ORDERED: CIP500T PO (11:54)
[2024-10-20 13:00] VITALS: BP 141/92; PULSE 80; RESP 20; TEMP 98.1; O2SAT 100
--- NOTE | 2024-10-20 15:15 | DVHDSRES ---
Discharge Summary Date of Admission Resident Creating Document: [place] RESIDENT Oct 16, 2024 at 15:30 Date of Discharge: Oct 20, 2024 Labs/Diagnostic Data: Laboratory Results Test 10/20/24 09:31 10/18/24 05:22 10/17/24 11:50 10/17/24 04:41 White Blood Count 3.1 10^3/uL (4.4-10.8) Red Blood Count 4.71 10^6/uL (4.5-5.90) Hemoglobin 11.9 g/dL (13.5-17.5) Hematocrit 36.8 % (41.0-53.0) Mean Corpuscular Volume 78.2 fL (80.0-100.0) Mean Corpuscular Hemoglobin 25.4 pg (28.0-32.0) Mean Corpuscular Hemoglobin Concent 32.5 g/dL (32.0-36.0) Red Cell Distribution Width 18.6 % (11.8-14.3) Platelet Count 219 10^3/uL (140-450) Mean Platelet Volume 8.3 fL (6.9-10.8) Neutrophils (%) (Auto) 51.1 % (37.0-80.0) Lymphocytes (%) (Auto) 26.0 % (10.0-50.0) Monocytes (%) (Auto) 14.1 % (0.0-12.0) Eosinophils (%) (Auto) 7.9 % (0.0-7.0) Basophils (%) (Auto) 0.9 % (0.0-2.0) Neutrophils # (Auto) 1.6 10 ^3/uL (1.6-8.6) Lymphocytes # (Auto) 0.8 10 ^3/uL (0.4-5.4) Monocytes # (Auto) 0.4 10 ^3/uL (0-1.3) Eosinophils # (Auto) 0.2 10 ^3/uL (0-0.8) Basophils # (Auto) 0 10 ^3/uL (0-0.2) Nucleated Red Blood Cells 0.1 % Sodium Level 140 mmol/L (136-145) Potassium Level 3.5 mmol/L (3.5-5.1) Chloride Level 107 mmol/L (98-107) Carbon Dioxide Level 24 mmol/L (20-31) Anion Gap 9 (5-15) Blood Urea Nitrogen 5 mg/dL (9-23) Creatinine 0.72 mg/dL (0.700-1.30) Glomerular Filtration Rate Calc 118 mL/min (>90) BUN/Creatinine Ratio 6.9 (10.0-20.0) Serum Glucose 90 mg/dL (74-106) Calcium Level 9.2 mg/dL (8.7-10.4) Total Bilirubin 0.9 mg/dL (0.2-1.0) Aspartate Amino Transferase (AST) 20 U/L (13-40) Alanine Aminotransferase (ALT) < 9 U/L (7-40) Alkaline Phosphatase 75 U/L (46-116) Total Protein 5.7 g/dL (5.7-8.2) Albumin 3.4 g/dL (3.2-4.8) Urine Color Light-yellow (Yellow) Urine Clarity Clear (Clear) Urine pH 5.5 (5.0-9.0) Urine Specific [place] 1.012 (1.001-1.035) Urine Protein Negative (Negative) Urine Ketones Trace (Negative) Urine Blood Negative /uL (Negative) Urine Nitrite Negative (Negative) Urine Bilirubin Negative (Negative) Urine Urobilinogen Normal mg/dL (Negative) Urine Leukocyte Esterase Negative /uL (Negative) Urine Glucose Normal mg/dL (Normal) Urine Opiates Screen Neg (NEGATIVE) Urine Fentanyl Screen Neg (NEGATIVE) Urine Barbiturates Screen Neg (NEGATIVE) Urine Phencyclidine Screen Neg (NEGATIVE) Urine Amphetamines Screen Neg (NEGATIVE) Urine Benzodiazepines Screen Neg (NEGATIVE) Urine Cocaine Screen Neg (NEGATIVE) Urine Cannabinoids Screen Neg (NEGATIVE) Magnesium Level 1.5 mg/dL (1.6-2.6) Test 10/16/24 16:21 10/16/24 12:50 Lactic Acid Level 2.0 mmol/L (0.4-2.0) Troponin I High Sensitivity < 3 ng/L (</=54) Lipase 36 U/L (12-53) Plasma/Serum Blood Alcohol 114.6 mg/dL (<10) Other Laboratory Tests 10/20/24 09:31 Brief Hx & Hospital Course: The patient is 39-year-old male with past medical history of hypertension, morbid obesity, chronic alcoholism came to the hospital with a chief complaint of sudden episode of syncopal episode. As per patient he had sudden syncopal episode around 9:00 a.m. currently in the morning today, family officer he had eyes rolled up, hitting his head. As per patient he had drinking alcohol since age 14, yesterday he drank approximately 400-500 mL of alcohol, he is trying to cut down on alcohol with alcohol cessation program however he is still continuing to drinking alcohol every day. He also complaining of mild shakiness, mild abdominal discomfort and anxious. The patient denied any other symptoms including fever, chills, chest pain, shortness of breath, any other symptoms at this point. Hospital course: Patient was started on IV banana bag, multivitamins, IV folic acid and thiamine. CT abdomen pelvis showed stranding surrounding the sigmoid colon which could represent diverticulitis, colitis, patient was subsequently put NPO and started on IV metronidazole and IV ceftriaxone. Patient was also given Librium per protocol, head CT showed no acute intracranial abnormality other than a left parietal scalp soft tissue swelling. Patient repeatedly had hypertension in the hospital which was managed with home medication lisinopril 20 mg b.i.d. as well as hydrochlorothiazide 12.5 mg and 1 time dose of IV hydralazine 10 mg. Diet was advanced to a full liquid diet with low fiber and eventually to a mechanical soft diet which the patient tolerated well. On the day of discharge, patient noted he had 3 bowel movements in the past 24 hours, which were slowly forming, denied any abdominal pain, vomiting, nausea. Patient was noted to have stable vital signs as well as a stable CBC and BMP, patient was discharged home with ciprofloxacin and metronidazole for an additional 5 days. Patient was instructed to follow up with PCP at his earliest convenience as well as follow up with GI. His hospital course was uncomplicated. General Appearance: Cooperative. Well developed. Well nourished. NAD Head Exam: Normal inspection Neck Exam: Normal inspection. Non-tender. Normal alignment Pulmonary/Respiratory: Chest non-tender. Clear bilateral breath sounds, no crackles, no wheezing. Cardiovascular/Chest: Regular rate and rhythm. No murmurs. No JVD. Peripheral Pulses: 2+ Radial (R). 2+ Radial (L). 2+ Pedal (R). 2+ Pedal (L) Abdominal Exam: Normal bowel sounds. Generalized abdominal tenderness to palpation most pronounced in the left upper and lower quadrant Ankle Exam: Negative ankle edema Lower extremities: Negative lower extremity edema Neuro/Mental Status: A&O x4. Coherent. Thoughts/Psych: Normal thought pattern. Appropriate mood and affect. Good judgement and insight Skin Exam: Normal inspection. Normal color. Warm. Dry Condition at Discharge: Good Final Diagnosis/Problems List ACUTE DIVERCULITIS Sepsis due to above S/p mechanical fall due to alcohol intoxication Left parietal scalp soft tissue swelling due to above Alcohol use disorder Alcohol intoxication with serum alcohol level 114.6 Syncopal episode likely due to above Essential hypertension Obesity class 3 History of Jluis-en-Y bypass Hypomagnesemia Discharge Disposition: Home Discharge Instruct/Medications Diet: See Comment Diet comment: Continue low-fiber diet for 1 week, advance diet as tolerated. Activity: No Restrictions, As Tolerated Follow Up/Referral: please follow up with PCP in 1-2 weeks please follow up with GI in the outpatient clinic Scheduled Ciprofloxacin Hydrochloride (Ciprofloxacin HCl), 500 MG PO DAILY Folic Acid (Folic Acid), 1 MG PO DAILY Hctz (Hydrochlorothiazide), 12.5 MG PO DAILY Lisinopril (Lisinopril), 40 MG PO DAILY, (Reported) Lisinopril & Hydrochlorothiazi (Lisinopril/Hydrochlorothi), 2 TAB PO DAILY, (Reported) Metronidazole (Metronidazole), 500 MG PO TID Multiple Vitamin (Mvi Tab), 1 TAB PO DAILY Thiamine Hcl (Vitamin B-1), 100 MG PO DAILY Scheduled PRN Alprazolam (Alprazolam), 1 TAB PO PRN PRN for ANXIETY, (Reported) Discharge Statement: "Patient was advised to return to the ER or call 911 if any headaches, dizziness, shortness of breath, chest pain, abdominal pain, bleeding, fevers, or worsening of medical condition. Patient was counseled about treatment plan, medications, possible side effects, patientverbalized understanding. All questions were answered to the best of my ability. This discharge took greater then 30 minutes in planning, reviewing documentation, counseling the patient, and discussing with other team members." ASSESSMENT ASSESSMENT Assessment ACUTE DIVERCULITIS Date of Service: Oct 20, 2024 Billing Provider: DIGNA SPENCER MD Common Visit Codes: [id number]/OBS DISCH DAY >30min [place] Oct 20, 2024 15:15 DIGNA SPENCER MD Oct 22, 2024 20:42
== END 2024-10-20 13:23 | disposition home or self-care (01) | DRG 720 ==
LOC: EDUNIT# 11:52 → EDBD 11:52 → ER 11:57 → OVERFLOW 15:30 → TELE-WESTW 10-17 15:53
PROVIDERS: ADMIT Internal Medicine Geriatric Medicine; ATTEND Emergency Medicine
DX: A41.9 Sepsis, unspecified organism (principal); E87.20 Acidosis, unspecified; E66.01 Morbid (severe) obesity due to excess calories; E83.42 Hypomagnesemia; K52.9 Noninfective gastroenteritis and colitis, unspecified; K57.32 Diverticulitis of large intestine without perforation or abscess without bleeding; Y90.5 Blood alcohol level of 100-119 mg/100 ml; I10 Essential (primary) hypertension; F10.239 Alcohol dependence with withdrawal, unspecified; F10.229 Alcohol dependence with intoxication, unspecified; E66.813 Obesity, class 3; Z68.42 Body mass index [BMI] 45.0-49.9, adult; Z98.84 Bariatric surgery status
CPT/HCPCS: 36415; 70450; 71045; 74176; 80048; 80053; 80307; 80320; 81003; 83605; 83690; 83735; 84484; 85025; 93005; 96361; 96374; G0378; J2405; J2470; J3490

== ENCOUNTER 2024-12-27 09:07 | Emergency (ER) | payer OTHER ==
[~2024-12-27] VITALS: Ht 180.3 cm; Wt 138.0 kg
[~2024-12-27 09:07] MED LIST changes: +AMLO1TAB22 PO; +CIP500T PO; +FOLI-119 PO; +HYDR25TA5 PO; +LISI40TA16 PO; +MET500T PO; +MULTTAB99 PO; +THIA100T10 PO
--- NOTE | 2024-12-27 10:06 | ED.PDOC ---
GI ASSESSMENT HPI Comments 39 y.o male presents to the ED for a chief complaint of diffuse abdominal pain associated with nausea, vomiting, diarrhea, and rectal bleed that started 4 days ago. Patient described pain as sharp, localized to the LLQ area and is constant. Patient has prior history of diverticulitis and believes symptoms reflect a flare up. He denies any fever, chills, back pain, hematemesis, dysuria, hematuria. He admits to heavy ETOH use with last drink being this morning. Chief Complaint: Abdominal Pain Time Seen by MD: 09:51 Reviewed Notes: Nurses Notes, Medications, Allergies Allergies: Coded Allergies: NO KNOWN ALLERGIES (Unverified , 10/12/19) Home Meds Active Scripts Thiamine Hcl (VITAMIN B-1) 100 Mg Tb, 100 MG PO DAILY for 30 Days, #30 TAB Prov:[facility] 10/20/24 Folic Acid (Folic Acid) 1 Mg Tab, 1 MG PO DAILY for 30 Days, #30 TAB Prov:[facility] 10/20/24 Hctz (Hydrochlorothiazide) 25 Mg Tab, 12.5 MG PO DAILY for 30 Days, #15 TAB Prov:[facility] 10/20/24 Multiple Vitamin (Mvi Tab) 1 Tab Tb, 1 TAB PO DAILY for 30 Days, #30 TAB Prov:[facility] 10/20/24 Metronidazole (Metronidazole) 500 Mg Tab, 500 MG PO TID for 5 Days, #15 TAB Prov:[facility] 10/20/24 Ciprofloxacin Hydrochloride (Ciprofloxacin HCl) 500 Mg Tab, 500 MG PO DAILY for 5 Days, #5 TAB Prov:[facility] 10/20/24 Reported Medications Lisinopril (Lisinopril) 40 Mg Tab, 40 MG PO DAILY, TAB 10/17/24 Lisinopril & Hydrochlorothiazi (Lisinopril/Hydrochlorothi) 1 Tab Tab, 2 TAB PO DAILY 05/26/24 Alprazolam (Alprazolam) 0.5 Mg Tab, 1 TAB PO PRN PRN for ANXIETY, #30 TAB 10/12/19 Information Source: Patient Mode of Arrival: Ambulatory Timing: Days (4) Duration: Since onset Quality: Sharp Vomitus: Hard Stool: Blood Streaked, Loose Severity: Moderate Recent: None Recent Hx of: None Pain Location: LLQ Modifying Factors: Nothing Associated sign and symptoms: Nausea, Vomiting, Diarrhea, Hematochezia, Abdominal Pain Past Medical History PAST MEDICAL HISTORY: HTN Surgical History: Denies all surgeries Family History Family History: Unknown Social History Smoker: Non-Smoker Alcohol: Heavy Drugs: Denies Drug Use Lives In: Home Constitutional: denies: chills, diaphoresis, fatigue, fever, malaise, sweats, weakness, others EENTM: denies: blurred vision, double vision, ear bleeding, ear discharge, ear drainage, ear pain, ear ringing, eye pain, eye redness, hearing loss, mouth pain, mouth swelling, nasal discharge, nose bleeding, nose congestion, nose pain, photophobia, tearing, throat pain, throat swelling, voice changes, others Respiratory: denies: cough, hemoptysis, orthopnea, SOB at rest, shortness of breath, SOB with excertion, stridor, wheezing, others Cardiovascular: denies: chest pain, dizzy spells, diaphoresis, Dyspnea on exertion, edema, irregular heart beat, left arm pain, lightheadedness, palpitations, PND, syncope, others Gastrointestinal: reports: abdominal pain, diarrhea, nausea, rectal bleeding; denies: abdomen distended, blood streaked bowels, constipated, dysphagia, difficulty swallowing, hematemesis, melena, poor appetite, poor fluid intake, rectal pain, vomiting, others Genitourinary: denies: burning, dysuria, flank pain, frequency, hematuria, incontinence, penile discharge, penile sore, pain, testicle pain, testicle swelling, urgency, others Neurological: denies: dizziness, fainting, headache, left sided numbness, left sided weakness, numbness, paresthesia, pre-existing deficit, right sided numbness, right sided weakness, seizure, speech problems, tingling, tremors, weakness, others Musculoskeletal: denies: back pain, gout, joint pain, joint swelling, muscle pain, muscle stiffness, neck pain, others Integumetry: denies: bruises, change in color, change in hair/nails, dryness, laceration, lesions, lumps, rash, wounds, others Allergic/Immunocompromised: denies: Difficulty Healing, Frequent Infections, Hives, Itching, others Hematologic/Lymphatic: denies: anemia, blood clots, easy bleeding, easy bruising, swollen glands, others Endocrine: denies: excessive hunger, excessive sweating, excessive thirst, excessive urination, flushing, intolerance to cold, intolerance to heat, unexplained weight gain, unexplained weight loss, others Psychiatric: denies: anxiety, bipolar disorder, depression, hopeless, panic disorder, schizophrenia, sleepless, suicidal, others All Other Systems: Reviewed and Negative Physical Exam General Appearance: Moderate Distress, Obese HEENT: Normal ENT Inspection, Pharynx Normal, TMs Normal Neck: Full Range of Motion, Non-Tender, Normal, Normal Inspection Respiratory: Chest Non-Tender, Lungs Clear, No Accessory Muscle Use, No Respiratory Distress, Normal Breath Sounds Cardiovascular: No Edema, No JVD, No Murmur, No Gallop, Normal Peripheral Pulses, Regular Rate/Rhythm Breast Exam: Deferred Gastrointestinal: No Organomegaly, Non Tender, No Pulsatile Mass, Normal Bowel Sounds, Soft Genitalia: Deferred Pelvic: Deferred Rectal: Deferred Extremities: No calf tenderness, Normal capillary refill, Normal inspection, Normal range of motion, Non-tender, No pedal edema Musculoskeletal : Apperance: Normal Neurologic: Alert, search coordinator II-XII nml as Tested, No Motor Deficits, Normal Affect, Normal Mood, No Sensory Deficits Cerebellar Function: Normal Reflexes: Normal Skin: Dry, Normal Color, Warm Peripheral Pulses: 3+ Radial (R), 3+ Radial (L) Lymphatic: No Adenopathy Was a procedure done? Was a procedure done?: No GI differential Dx Differential Diagnosis: Constipation, Diverticular disease, Esophagitis, Gastritis/PUD, Gastroenteritis, Esophageal Varicies, Stress Ulcer X-Ray, Labs, Meds, VS Vital Signs Date Time Temp Pulse Resp B/P (MAP) Pulse Ox O2 Delivery O2 Flow Rate FiO2 12/27/24 10:55 99 96 96 Room Air* 0 21 12/27/24 10:45 98.8 119 20 132/92 (105) 95 98.8 12/27/24 10:45 119 20 95 Room Air* 0 21 12/27/24 10:09 111 18 96 Room Air 12/27/24 10:09 111 18 160/101 (120) 94 12/27/24 09:09 97.5 115 19 148/99 95 97.5 Lab Test 12/27/24 10:16 Range/Units White Blood Count 6.9 4.4-10.8 10^3/uL Red Blood Count 5.29 4.5-5.90 10^6/uL Hemoglobin 13.2 L 13.5-17.5 g/dL Hematocrit 41.1 41.0-53.0 % Mean Corpuscular Volume 77.6 L 80.0-100.0 fL Mean Corpuscular Hemoglobin 25.0 L 28.0-32.0 pg Mean Corpuscular Hemoglobin Concent 32.2 32.0-36.0 g/dL Red Cell Distribution Width 19.5 H 11.8-14.3 % Platelet Count 354 140-450 10^3/uL Mean Platelet Volume 8.1 6.9-10.8 fL Neutrophils (%) (Auto) 53.0 37.0-80.0 % Lymphocytes (%) (Auto) 39.4 10.0-50.0 % Monocytes (%) (Auto) 5.7 0.0-12.0 % Eosinophils (%) (Auto) 1.1 0.0-7.0 % Basophils (%) (Auto) 0.8 0.0-2.0 % Neutrophils # (Auto) 3.7 1.6-8.6 10 ^3/uL Lymphocytes # (Auto) 2.7 0.4-5.4 10 ^3/uL Monocytes # (Auto) 0.4 0-1.3 10 ^3/uL Eosinophils # (Auto) 0.1 0-0.8 10 ^3/uL Basophils # (Auto) 0.1 0-0.2 10 ^3/uL Nucleated Red Blood Cells 0.1 % Platelet Estimate Adequate Anisocytosis (manual) Slight Microcytosis Slight Plasma/Serum Blood Alcohol 449.7 *H <10 mg/dL Current Medications Medications (Trade) Dose Ordered Sig/Addie Route Start Time Stop Time Status Last Admin Ondansetron HCl (Zofran) 4 mg ONCE ONCE IV 12/27/24 10:15 12/27/24 10:16 DC 12/27/24 10:40 Sodium Chloride 1,000 ml @ 1,000 mls/hr Q1H ONCE IVB 12/27/24 10:15 12/27/24 11:14 DC 12/27/24 10:42 Thiamine HCl 100 mg ONCE ONCE IV 12/27/24 10:15 12/27/24 10:16 DC 12/27/24 10:40 Patient alert. Vitals stable. Alcohol intoxication. Answering questions. Blood alcohol level elevated. Was given Zofran. Establish intravenous access. Was given fluids. Was given thiamine. Counseled patient on effects of drinking alcohol for 15 minutes. Explained to the patient. Continue monitoring. Time of 1ST Reevaluation: 10:06 Reevaluation 1ST: Unchanged Patient Education/Counseling: Diagnosis, Treatment, Prognosis Family Education/Counseling: No Family Present SEPSIS Sepsis Screen Date sepsis recognized/suspect: Dec 27, 2024 Time Sepsis recognized/suspect: 908 Recent Procedure: No On Antibiotic Therapy: No Respiratory Rate >20: No Heart Rate >90: Yes Temp<36 C (96.8 F) or >38.3 C: No SBP <90 or MAP <65 mmHG: No New Acute Mental Status Change: No Is the patient on CPAP, BIPAP,: No Vital Signs Date Time Temp Pulse Resp B/P (MAP) Pulse Ox O2 Delivery O2 Flow Rate FiO2 12/27/24 10:55 99 96 96 Room Air* 0 21 12/27/24 10:45 98.8 119 20 132/92 (105) 95 98.8 12/27/24 10:45 119 20 95 Room Air* 0 21 12/27/24 10:09 111 18 96 Room Air 12/27/24 10:09 111 18 160/101 (120) 94 12/27/24 09:09 97.5 115 19 148/99 95 97.5 Laboratory Tests Test 12/27/24 10:16 White Blood Count 6.9 10^3/uL (4.4-10.8) Medications Medications Dose Ordered Sig/Addie Route Start Time Stop Time Status Last Admin Dose Admin Lorazepam 2 mg STK-MED ONCE .ROUTE 12/27/24 12:48 12/27/24 12:44 DC 12/27/24 12:48 Ondansetron HCl 4 mg ONCE ONCE IV 12/27/24 10:15 12/27/24 10:16 DC 12/27/24 10:40 Sodium Chloride 1,000 ml @ 1,000 mls/hr Q1H ONCE IVB 12/27/24 10:15 12/27/24 11:14 DC 12/27/24 10:42 Thiamine HCl 100 mg ONCE ONCE IV 12/27/24 10:15 12/27/24 10:16 DC 12/27/24 10:40 Departure 1 Departure Time of Disposition: 13:51 Impression: Primary Impression: Alcohol intoxication Qualified Codes: F10.920 - Alcohol use, unspecified with intoxication, uncomplicated Disposition: 09 ADMITTED INPATIENT Admit to: Med Surg Condition: Guarded Critical Care Note Critical Care Time?: Yes (90 min-critical care time only) Stability Stability form required: No I personally scribed for EDEL CLARK MD ([email or web address]) on 12/27/24 at 10:06. Electronically submitted by Meera Rascon ([facility]). EDEL CLARK MD Dec 27, 2024 10:06
[2024-12-27 10:32] LABS: Mean Corpuscular Volume 77.6 fL (80.0-100.0); Nucleated Red Blood Cells % 0.1 %
[2024-12-27 10:34] LABS: Hematocrit 41.1 % (41.0-53.0); Hemoglobin 13.2 g/dL (13.5-17.5); Mean Corpuscular Hemoglobin 25.0 pg (28.0-32.0)
[2024-12-27] MEDS: THIAMINE 100mg/ml INJ (200mg/2ml VIAL) IV ONE (10:40)
[2024-12-27] MEDS: ONDANSETRON HCL 4 MG/2 ML VIAL IV ONE (10:40)
[2024-12-27] MEDS: SODIUM CHLORIDE 0.9% 1,000 ML IVB ONE (10:42)
[2024-12-27 10:45] VITALS: BP 132/92; PULSE 119; RESP 20; TEMP 98.8; O2SAT 95
[2024-12-27 10:53] LABS: Anisocytosis Slight
[2024-12-27 10:55] VITALS: PULSE 99; RESP 96; O2SAT 96
[2024-12-27] MEDS: LORazepam 2MG/ML-1ML VIAL ONE (12:48)
[2024-12-27] MEDS: LORazepam 2MG/ML-1ML VIAL IV ONE (13:13)
== END 2024-12-27 13:48 | disposition left against medical advice (07) ==
LOC: ER 09:07
DX: F10.129 Alcohol abuse with intoxication, unspecified (principal); Z79.899 Other long term (current) drug therapy; I10 Essential (primary) hypertension; Y90.8 Blood alcohol level of 240 mg/100 ml or more
CPT/HCPCS: 36415; 80320; 85025; 96361; 96374; 96375; 99284; J2060; J2405; J3411; J7030

== ENCOUNTER 2024-12-28 08:26 | Inpatient (IN) | payer OTHER ==
[~2024-12-28] VITALS: Ht 180.3 cm; Wt 140.7 kg
[2024-12-28 09:57] LABS: Hemoglobin 12.2 g/dL (13.5-17.5)
[2024-12-28 10:01] LABS: Hematocrit 38.6 % (41.0-53.0); Mean Corpuscular Hemoglobin 24.5 pg (28.0-32.0); Mean Corpuscular Volume 77.4 fL (80.0-100.0); Nucleated Red Blood Cells % 0.0 %
[2024-12-28 10:19] LABS: Alanine Aminotransferase 21 U/L (7-40); Albumin 4.5 g/dL (3.2-4.8); Alkaline Phosphatase 90 U/L (46-116); Anion Gap 19 (5-15); BUN/Creatinine Ratio 14.6 (10.0-20.0); Blood Urea Nitrogen 12 mg/dL (9-23); Carbon Dioxide 20 mmol/L (20-31); Chloride 102 mmol/L (98-107); Sodium 141 mmol/L (136-145); Total Protein 7.8 g/dL (5.7-8.2)
[2024-12-28 10:20] LABS: Bilirubin, Total 0.9 mg/dL (0.2-1.0); Calcium 8.6 mg/dL (8.7-10.4); Glucose 107 mg/dL (74-106); Potassium 3.4 mmol/L (3.5-5.1)
[2024-12-28 10:57] LABS: Lipase 37 U/L (12-53)
--- NOTE | 2024-12-28 12:20 | ED.PDOC ---
History of Present Illness HPI Comments Mr. Hall is a 39 year old male with PMHx of diverticulitis with recent admission two weeks ago, hemorrhoids, and hypertension, who presents today with chief complaint of abdominal pain. He states that 2 days ago he had sudden onset of lower left quadrant abdominal pain described as intermittent, pressure-like, nonradiating, 10/10 intensity, associated with diarrhea, nausea, and vomiting, without aggravating or relieving factors. Additionally states he has seen blood after wiping, but attributes this to his hemorrhoids. He denies chest pain, palpitations, bloody diarrhea, and bloody vomit. He presented to the ED yesterday for evaluation, but left AMA. Due to presentence of symptoms he presents today for evaluation. Chief Complaint: Intractable Abdominal Pain Time Seen by MD: 12:10 Allergies: Coded Allergies: NO KNOWN ALLERGIES (Unverified , 10/12/19) Home Meds Active Scripts Thiamine Hcl (VITAMIN B-1) 100 Mg Tb, 100 MG PO DAILY for 30 Days, #30 TAB Prov:[facility] 10/20/24 Folic Acid (Folic Acid) 1 Mg Tab, 1 MG PO DAILY for 30 Days, #30 TAB Prov:[facility] 10/20/24 Hctz (Hydrochlorothiazide) 25 Mg Tab, 12.5 MG PO DAILY for 30 Days, #15 TAB [facility] 10/20/24 Multiple Vitamin (Mvi Tab) 1 Tab Tb, 1 TAB PO DAILY for 30 Days, #30 TAB [facility]/24 Metronidazole (Metronidazole) 500 Mg Tab, 500 MG PO TID for 5 Days, #15 TAB Prov:[facility] 10/20/24 Ciprofloxacin Hydrochloride (Ciprofloxacin HCl) 500 Mg Tab, 500 MG PO DAILY for 5 Days, #5 TAB Prov:[facility] 10/20/24 Reported Medications Lisinopril (Lisinopril) 40 Mg Tab, 40 MG PO DAILY, TAB 10/17/24 Lisinopril & Hydrochlorothiazi (Lisinopril/Hydrochlorothi) 1 Tab Tab, 2 TAB PO DAILY 05/26/24 Alprazolam (Alprazolam) 0.5 Mg Tab, 1 TAB PO PRN PRN for ANXIETY, #30 TAB 10/12/19 Information Source: Patient Mode of Arrival: Ambulatory Severity: Moderate Timing: Days Duration: Intermittent Past Medical History PAST MEDICAL HISTORY: HTN Past Medical History (Other): Diverticulitis, Hemorrhoids Surgical History (Other): Gastric Bypass 2017 Family History Family History: Family hx of Cancer, Family hx of heart shaylee, Family hx of HTN Social History Smoker: Non-Smoker Alcohol: Heavy Drugs: Denies Drug Use Lives In: Home Constitutional: denies: chills, diaphoresis, fatigue, fever, malaise, sweats, weakness, others EENTM: denies: blurred vision, double vision, ear bleeding, ear discharge, ear drainage, ear pain, ear ringing, eye pain, eye redness, hearing loss, mouth pain, mouth swelling, nasal discharge, nose bleeding, nose congestion, nose pain, photophobia, tearing, throat pain, throat swelling, voice changes, others Respiratory: denies: cough, hemoptysis, orthopnea, SOB at rest, shortness of breath, SOB with excertion, stridor, wheezing, others Cardiovascular: denies: chest pain, dizzy spells, diaphoresis, Dyspnea on exertion, edema, irregular heart beat, left arm pain, lightheadedness, palpitations, PND, syncope, others Gastrointestinal: reports: abdominal pain, diarrhea, vomiting Genitourinary: denies: burning, dysuria, flank pain, frequency, hematuria, incontinence, penile discharge, penile sore, pain, testicle pain, testicle swelling, urgency, others Neurological: denies: dizziness, fainting, headache, left sided numbness, left sided weakness, numbness, paresthesia, pre-existing deficit, right sided numbness, right sided weakness, seizure, speech problems, tingling, tremors, weakness, others Musculoskeletal: denies: back pain, gout, joint pain, joint swelling, muscle pain, muscle stiffness, neck pain, others Integumetry: denies: bruises, change in color, change in hair/nails, dryness, laceration, lesions, lumps, rash, wounds, others Hematologic/Lymphatic: denies: anemia, blood clots, easy bleeding, easy bruising, swollen glands, others Endocrine: denies: excessive hunger, excessive sweating, excessive thirst, excessive urination, flushing, intolerance to cold, intolerance to heat, unexplained weight gain, unexplained weight loss, others Physical Exam General Appearance: Moderate Distress, Obese HEENT: Normal ENT Inspection Neck: Non-Tender, Normal, Normal Inspection Respiratory: No Accessory Muscle Use, No Respiratory Distress, Normal Breath Sounds Cardiovascular: JVD, No Edema, No JVD, No Murmur, No Gallop, Normal Peripheral Pulses, Regular Rate/Rhythm Breast Exam: Deferred Gastrointestinal: Guarding, LLQ (Pain on superificial and deep palpation of LLQ), LUQ (Pain on superificial and deep palpation ), Soft, Tenderness (Pain on superficial an) Genitalia: Deferred Pelvic: Deferred Rectal: Deferred Extremities: No calf tenderness, Normal capillary refill, Normal inspection, Normal range of motion, Non-tender, No pedal edema Neurologic: Normal Affect, Normal Mood Cerebellar Function: Normal Reflexes: Normal Skin: Normal Color Lymphatic: No Adenopathy Was a procedure done? Was a procedure done?: No Differential Dx Considerations may include: Diverticulitis, Colitis, Gastroenteritis X-Ray, Labs, Meds, VS Vital Signs Date Time Temp Pulse Resp B/P (MAP) Pulse Ox O2 Delivery O2 Flow Rate FiO2 12/28/24 13:36 98.7 94 16 119/62 (81) 96 98.7 12/28/24 13:36 94 16 96 Room Air 12/28/24 13:30 98.4 99 20 114/73 (87) 97 98.4 12/28/24 08:27 98.5 104 16 168/111 97 98.5 Lab Test 12/28/24 09:28 Range/Units White Blood Count 6.6 4.4-10.8 10^3/uL Red Blood Count 4.99 4.5-5.90 10^6/uL Hemoglobin 12.2 L 13.5-17.5 g/dL Hematocrit 38.6 L 41.0-53.0 % Mean Corpuscular Volume 77.4 L 80.0-100.0 fL Mean Corpuscular Hemoglobin 24.5 L 28.0-32.0 pg Mean Corpuscular Hemoglobin Concent 31.7 L 32.0-36.0 g/dL Red Cell Distribution Width 19.2 H 11.8-14.3 % Platelet Count 321 140-450 10^3/uL Mean Platelet Volume 8.2 6.9-10.8 fL Neutrophils (%) (Auto) 58.2 37.0-80.0 % Lymphocytes (%) (Auto) 32.0 10.0-50.0 % Monocytes (%) (Auto) 8.0 0.0-12.0 % Eosinophils (%) (Auto) 1.2 0.0-7.0 % Basophils (%) (Auto) 0.6 0.0-2.0 % Neutrophils # (Auto) 3.8 1.6-8.6 10 ^3/uL Lymphocytes # (Auto) 2.1 0.4-5.4 10 ^3/uL Monocytes # (Auto) 0.5 0-1.3 10 ^3/uL Eosinophils # (Auto) 0.1 0-0.8 10 ^3/uL Basophils # (Auto) 0 0-0.2 10 ^3/uL Nucleated Red Blood Cells 0.0 % Sodium Level 141 136-145 mmol/L Potassium Level 3.4 L 3.5-5.1 mmol/L Chloride Level 102 98-107 mmol/L Carbon Dioxide Level 20 20-31 mmol/L Anion Gap 19 H 5-15 Blood Urea Nitrogen 12 9-23 mg/dL Creatinine 0.82 0.700-1.30 mg/dL Glomerular Filtration Rate Calc 114 >90 mL/min BUN/Creatinine Ratio 14.6 10.0-20.0 Serum Glucose 107 H 74-106 mg/dL Calcium Level 8.6 L 8.7-10.4 mg/dL Total Bilirubin 0.9 0.2-1.0 mg/dL Aspartate Amino Transferase (AST) 27 13-40 U/L Alanine Aminotransferase (ALT) 21 7-40 U/L Alkaline Phosphatase 90 46-116 U/L Total Protein 7.8 5.7-8.2 g/dL Albumin 4.5 3.2-4.8 g/dL Lipase 37 12-53 U/L Plasma/Serum Blood Alcohol 156.7 H <10 mg/dL Current Medications Medications (Trade) Dose Ordered Sig/Addie Route Start Time Stop Time Status Last Admin Ketorolac Tromethamine (Toradol Injection) 15 mg ONCE ONCE IV 12/28/24 12:15 12/28/24 12:27 DC 12/28/24 13:33 Ondansetron HCl (Zofran) 4 mg ONCE ONCE IV 12/28/24 12:15 12/28/24 12:27 DC 12/28/24 13:33 Sodium Chloride 1,000 ml @ 1,000 mls/hr Q1H ONCE IV 12/28/24 12:15 12/28/24 13:14 DC 12/28/24 13:33 Potassium Chloride (Klor-Con Tablet) 40 meq ONCE ONCE PO 12/28/24 13:45 12/28/24 13:46 DC 12/28/24 13:40 Time of 1ST Reevaluation: 13:50 Reevaluation 1ST: Unchanged Patient Education/Counseling: Diagnosis, Treatment Family Education/Counseling: No Family Present SEPSIS Sepsis Screen Date sepsis recognized/suspect: Dec 28, 2024 Time Sepsis recognized/suspect: 826 Recent Procedure: No On Antibiotic Therapy: No Respiratory Rate >20: No Heart Rate >90: Yes Temp<36 C (96.8 F) or >38.3 C: No SBP <90 or MAP <65 mmHG: No New Acute Mental Status Change: No Is the patient on CPAP, BIPAP,: No Physician Orders Urinalysis (12/28/24 08:34) Drug Screen (12/28/24 12:14) Ct Ab Pel Wo Con-No Oral Or Iv (12/28/24 12:11) Npo (Nothing By Mouth) Diet (12/28/24 Lunch) Vital Signs Date Time Temp Pulse Resp B/P (MAP) Pulse Ox O2 Delivery O2 Flow Rate FiO2 12/28/24 13:36 98.7 94 16 119/62 (81) 96 98.7 12/28/24 13:36 94 16 96 Room Air 12/28/24 13:30 98.4 99 20 114/73 (87) 97 98.4 12/28/24 08:27 98.5 104 16 168/111 97 98.5 Laboratory Tests Test 12/28/24 09:28 White Blood Count 6.6 10^3/uL (4.4-10.8) Medications Medications Dose Ordered Sig/Addie Route Start Time Stop Time Status Last Admin Dose Admin Ketorolac Tromethamine 15 mg ONCE ONCE IV 12/28/24 12:15 12/28/24 12:27 DC 12/28/24 13:33 Ondansetron HCl 4 mg ONCE ONCE IV 12/28/24 12:15 12/28/24 12:27 DC 12/28/24 13:33 Potassium Chloride 40 meq ONCE ONCE PO 12/28/24 13:45 12/28/24 13:46 DC 12/28/24 13:40 Sodium Chloride 1,000 ml @ 1,000 mls/hr Q1H ONCE IV 12/28/24 12:15 12/28/24 13:14 DC 12/28/24 13:33 Departure 1 Departure Time of Disposition: 14:05 (The patient presented today with lower quadrant pain, diarrhea, vomiting, and nausea which is concerning for possible diverticulitis, colitis, acute gastroenteritis. 1. I ordered and reviewed the results of at least 2 labs including a CBC and CMP. 2. I independently interpretted the following test: CT abdomen/pelvis which is signficant for possible colitis. Due to presence of intense pain, persistent nause and vomiting, the patient will be admitted for further work up at management. The patient is stable at this time. ) Impression: Primary Impression: Enterocolitis Disposition: 30 STILL A PATIENT Admit to: Med Surg Condition: Stable Additional Instructions: CBC is significant for microcytic anemia CMP significant for mild hypokalemia CT abdomen is significant for colitis Patient has been given IV toradol, IV potassium, fluids and IV antibiotics He will be admitted for further work up and management Critical Care Note Critical Care Time?: No Stability Stability form required: SALLIE Patten RESIDENT Dec 28, 2024 12:20
--- NOTE | 2024-12-28 12:58 | DVH ---
CLINICAL INFORMATION: Rule out diverticulitis. TECHNIQUE: Axial CT images of the abdomen and pelvis were obtained without IV contrast. Coronal and s agittal reformatted images were obtained, reviewed, and stored. Evaluation of the parenchymal organs is limited without IV contrast. Evaluation of the bowel and mesentery is limited without oral contras t. All CT scans at this medical facility are performed using dose modulation techniques as appropriat e to a performed exam including the following: Automated exposure control was utilized; adjustment of the MA and/or KV according to patient size; and use of iterative reconstruction technique. CTDIvol = 22.3 mGy DLP = 1293.94 mGy-cm COMPARISON: CT CT AB PEL WO CON-NO ORAL OR IV on DOS: 10/16/24, CT ABD PELVIS WO CONTRAST on DOS: 0 FINDINGS: Lung bases: Lung bases are clear. Liver: Grossly unremarkable in its noncontrast enhanced appearance. No abnormal density or focal lesi on identified. Biliary: Mildly distended gallbladder. No calcified gallstones visualized on CT. No biliary ductal d ilatation. Spleen: Unremarkable. Pancreas: Grossly unremarkable in its noncontrast enhanced appearance. Adrenal glands: Unremarkable. No mass. Kidneys: No hydronephrosis. No renal or ureteral calculi. Aorta/Vascular: No aneurysm or significant calcification. Lymph nodes: No mass or lymphadenopathy. Bowel/mesentery: No small bowel obstruction. No free air or free fluid. Appendix is visualized and is normal in diameter. The distal tip of the appendix extends adjacent to an area of inflammatory stran ding associated with wall thickening at the sigmoid colon. The inflammatory changes are centered shirley und the sigmoid colon rather than the appendix. Likely colitis. Secondary inflammation of the tip of the appendix can not be excluded. There are no significant diverticula near the area of wall thickeni ng and inflammatory stranding in the sigmoid colon. Postsurgical changes in the proximal stomach from gastric bypass surgery. Pelvic organs: Grossly unremarkable. Bladder: Unremarkable. No mass. Abdominal wall: Small fat containing indirect inguinal hernias. Bones: No acute fracture or suspicious intraosseous lesion. IMPRESSION: 1. Wall thickening and inflammatory stranding at the sigmoid colon consistent with colitis, may be in fectious or inflammatory in nature. No definite diverticular disease in the affected portions of the sigmoid colon to suggest diverticulitis. 2. The tip of the appendix extends adjacent to the area of inflammatory stranding at the sigmoid colo n. Secondary inflammation of the tip of the appendix can not be excluded. Correlate with clinical f indings. 3. Mildly distended gallbladder with no calcified gallstones visualized. Correlate with clinical find ings. If there is clinical concern for acute cholecystitis, ultrasound could be obtained. 4. Additional findings as described above.
[2024-12-28] MEDS ORDERED: POTASSIUM CHLORIDE 20 MEQ, LIDOCAINE 1% (LOCAL ANESTH.) 2 ML in SODIUM CHL 0.9% 100 ML IV ONE (13:00)
[2024-12-28] MEDS: KETOROLAC TROMETH 30 MG/ML 1ML VIAL IV ONE (13:33)
[2024-12-28] MEDS: ONDANSETRON HCL 4 MG/2 ML VIAL IV ONE (13:33)
[2024-12-28] MEDS: SODIUM CHLORIDE 0.9% 1,000 ML IV ONE ×2 (13:33→16:23)
[2024-12-28] MEDS: POTASSIUM CHL 20 Meq TABLET PO ONE (13:40)
[2024-12-28] MEDS: HYDROMORPHONE HCL 1 MG/ML INJ IV ONE (15:04)
[2024-12-28] MEDS: ceFAZolin 2 GM/D5W50ml 50 ML IV ONE (15:04)
[2024-12-28 15:08] LABS: Urine Protein, UAD Negative (Negative)
[2024-12-28 15:21] LABS: Amphetamine Screen, Urine Neg (NEGATIVE); Barbiturate Scree,Urine Neg (NEGATIVE); Benzodiazephine Screen, Urine Neg (NEGATIVE); Cannabinoid Screen, Urine Neg (NEGATIVE); Cocaine Screen, Urine Neg (NEGATIVE); Opiate Scree,Urine Neg (NEGATIVE); Phencyclidine Screen, Urine Neg (NEGATIVE)
[2024-12-28] MEDS ORDERED: ACETAMINOPHEN 325 MG TAB PO PRN (15:30)
[2024-12-28] MEDS ORDERED: DOCUSATE SOD 100 MG CAP PO PRN (15:30)
[2024-12-28] MEDS ORDERED: MORPHINE SULFATE INJ 2 MG/ml SYRG IV PRN (15:30)
[2024-12-28] MEDS ORDERED: ONDANSETRON HCL 4 MG/2 ML VIAL IV PRN (15:30)
[2024-12-28] MEDS ORDERED: LORazepam 2MG/ML-1ML VIAL IV PRN (16:00)
--- NOTE | 2024-12-28 16:07 | DVHHP2 ---
History of Present Illness Reason for Visit: Abdominal pain History of Present Illness Chi Hall is a 39-year-old male with past medical history of hypertension and diverticulosis, who came to the hospital with complaints of abdominal pain. Patient has been experiencing intermittent abdominal pain for about 1 week. He was seen here in October for diverticulosis, and thought this felt the same so he came to the hospital. He came to the hospital yesterday but left AMA due to the wait being too long, and he hoped the pain would improve. He was not able to sleep much last night due to the pain so he came back to the hospital. Patient states he does not drink too often. Only about once a month, but when he does drink he rosetta drinks for a couple days. Patient did consume alcohol yesterday prior to coming to the hospital and after he left. Cardiovascular: HTN GI: Diverticulosis Past Surgical History: Other (gastric bypass) Smoke: No ALCOHOL: heavy (states he only drinks once a month, but he rosetta drinks when he does drink) Drugs: None Lives: Alone Review of Systems Constitutional: No: Fever, Chills, Sweats, Weakness, Malaise, Other Eyes: No: Pain, Vision change, Conjunctivae inflammation, Eyelid inflammation, Other, Redness ENT: No: Ear pain, Ear discharge, Nose pain, Nose discharge, Nose congestion, Mouth pain, Mouth swelling, Throat pain, Throat swelling, Other Respiratory: No: Cough, Dry, Shortness of breath, SOB with excertion, Wheezing, Hemoptysis, Pleuritic Pain, Sputum, Wheezing, Other Cardiovascular: No: Chest Pain, Palpitations, Orthopnea, Paroxysmal Noc. D yspnea, Edema, Lt Headedness, Other Gastrointestinal: Nausea, Abdominal Pain; No: Vomiting, Diarrhea, Constipation, Melena, Hematochezia, Other Genitourinary: No Dysuria, No Frequency, No Incontinence, No Hematuria, No Retention, No Other Musculoskeletal: No: other, neck pain, shoulder pain, arm pain, back pain, hand pain, leg pain, foot pain Skin: No: Rash, Lesions, Jaundice, Bruising, Other Neurological: No: Weakness, Numbness, Incoordination, Change in speech, Confusion, Seizures, Other Allergies: Coded Allergies: NO KNOWN ALLERGIES (Unverified , 10/12/19) Medications Current Medications Medications Dose Ordered Sig/Addie Route Start Time Stop Time Status Last Admin Dose Admin Acetaminophen/ Hydrocodone Bitart 1 tab Q4HP PRN PO 12/28/24 15:30 UNV Ondansetron HCl 4 mg Q4HP PRN IV 12/28/24 15:30 UNV Docusate Sodium 100 mg BIDPRN PRN PO 12/28/24 15:30 UNV Acetaminophen 650 mg Q6HP PRN PO 12/28/24 15:30 UNV Morphine Sulfate 2 mg Q4HPRN PRN IV 12/28/24 15:30 UNV Multivitamins/ Minerals 1 tab DAILY PO 12/29/24 10:00 UNV Thiamine HCl 100 mg DAILY PO 12/29/24 10:00 UNV Folic Acid 1 mg DAILY PO 12/29/24 10:00 UNV Exam Vital Signs Vital Signs Date Time Temp Pulse Resp B/P (MAP) Pulse Ox O2 Delivery O2 Flow Rate FiO2 12/28/24 15:04 88 16 119/62 12/28/24 13:36 98.7 96 98.7 12/28/24 13:36 Room Air General Appearance: Alert, Oriented X3, Cooperative, moderate distress HEENT: Atraumatic, PERRLA, Mucous membr. moist/pink Respiratory: Clear to auscultation, Normal air movement Cardiovascular: Regular rate, Normal S1, Normal S2, No murmurs Abdominal: Normal bowel sounds, Soft, Other (tenderness on palpitation to left mid to lower quadrant) Extremities: No clubbing, No cyanosis, No edema, Normal pulses, No tenderness/swelling Skin: No rashes, No breakdown, No significant lesion Neuro: Normal gait, Normal speech, Strength at 5/5 X4 ext, Normal tone, Sensation intact Psych/Mental Status: Mental status NL, Mood NL Labs/Xrays Labs Test 12/28/24 13:35 12/28/24 09:28 Range/Units Urine Color Light-yellow Yellow Urine Clarity Clear Clear Urine pH 5.5 5.0-9.0 Urine Specific [place] 1.009 1.001-1.035 Urine Protein Negative Negative Urine Ketones Negative Negative Urine Blood Negative Negative /uL Urine Nitrite Negative Negative Urine Bilirubin Negative Negative Urine Urobilinogen Normal Negative mg/dL Urine Leukocyte Esterase Negative Negative /uL Urine RBC <1 0 - 3 /hpf Urine Microscopic WBC 1 0-3 /HPF Urine Squamous Epithelial Cells None seen <5 /hpf Urine Bacteria None seen None Seen /hpf Urine Glucose Normal Normal mg/dL Urine Opiates Screen Neg NEGATIVE Urine Fentanyl Screen Neg NEGATIVE Urine Barbiturates Screen Neg NEGATIVE Urine Phencyclidine Screen Neg NEGATIVE Urine Amphetamines Screen Neg NEGATIVE Urine Benzodiazepines Screen Neg NEGATIVE Urine Cocaine Screen Neg NEGATIVE Urine Cannabinoids Screen Neg NEGATIVE White Blood Count 6.6 4.4-10.8 10^3/uL Red Blood Count 4.99 4.5-5.90 10^6/uL Hemoglobin 12.2 L 13.5-17.5 g/dL Hematocrit 38.6 L 41.0-53.0 % Mean Corpuscular Volume 77.4 L 80.0-100.0 fL Mean Corpuscular Hemoglobin 24.5 L 28.0-32.0 pg Mean Corpuscular Hemoglobin Concent 31.7 L 32.0-36.0 g/dL Red Cell Distribution Width 19.2 H 11.8-14.3 % Platelet Count 321 140-450 10^3/uL Mean Platelet Volume 8.2 6.9-10.8 fL Neutrophils (%) (Auto) 58.2 37.0-80.0 % Lymphocytes (%) (Auto) 32.0 10.0-50.0 % Monocytes (%) (Auto) 8.0 0.0-12.0 % Eosinophils (%) (Auto) 1.2 0.0-7.0 % Basophils (%) (Auto) 0.6 0.0-2.0 % Neutrophils # (Auto) 3.8 1.6-8.6 10 ^3/uL Lymphocytes # (Auto) 2.1 0.4-5.4 10 ^3/uL Monocytes # (Auto) 0.5 0-1.3 10 ^3/uL Eosinophils # (Auto) 0.1 0-0.8 10 ^3/uL Basophils # (Auto) 0 0-0.2 10 ^3/uL Nucleated Red Blood Cells 0.0 % Sodium Level 141 136-145 mmol/L Potassium Level 3.4 L 3.5-5.1 mmol/L Chloride Level 102 98-107 mmol/L Carbon Dioxide Level 20 20-31 mmol/L Anion Gap 19 H 5-15 Blood Urea Nitrogen 12 9-23 mg/dL Creatinine 0.82 0.700-1.30 mg/dL Glomerular Filtration Rate Calc 114 >90 mL/min BUN/Creatinine Ratio 14.6 10.0-20.0 Serum Glucose 107 H 74-106 mg/dL Calcium Level 8.6 L 8.7-10.4 mg/dL Total Bilirubin 0.9 0.2-1.0 mg/dL Aspartate Amino Transferase (AST) 27 13-40 U/L Alanine Aminotransferase (ALT) 21 7-40 U/L Alkaline Phosphatase 90 46-116 U/L Total Protein 7.8 5.7-8.2 g/dL Albumin 4.5 3.2-4.8 g/dL Lipase 37 12-53 U/L Plasma/Serum Blood Alcohol 156.7 H <10 mg/dL TECHNIQUE: Axial CT images of the abdomen and pelvis were obtained without IV contrast. FINDINGS: Lung bases: Lung bases are clear. Liver: Grossly unremarkable in its noncontrast enhanced appearance. No abnormal density or focal lesion identified. Biliary: Mildly distended gallbladder. No calcified gallstones visualized on CT. No biliary ductal dilatation. Spleen: Unremarkable. Pancreas: Grossly unremarkable in its noncontrast enhanced appearance. Adrenal glands: Unremarkable. No mass. Kidneys: No hydronephrosis. No renal or ureteral calculi. Aorta/Vascular: No aneurysm or significant calcification. Lymph nodes: No mass or lymphadenopathy. Bowel/mesentery: No small bowel obstruction. No free air or free fluid. Appendix is visualized and is normal in diameter. The distal tip of the appendix extends adjacent to an area of inflammatory stranding associated with wall thickening at the sigmoid colon. The inflammatory changes are centered around the sigmoid colon rather than the appendix. Likely colitis. Secondary inflammation of the tip of the appendix can not be excluded. There are no significant diverticula near the area of wall thickening and inflammatory stranding in the sigmoid colon. Postsurgical changes in the proximal stomach from gastric bypass surgery. Pelvic organs: Grossly unremarkable. Bladder: Unremarkable. No mass. Abdominal wall: Small fat containing indirect inguinal hernias. Bones: No acute fracture or suspicious intraosseous lesion. IMPRESSION: 1. Wall thickening and inflammatory stranding at the sigmoid colon consistent with colitis, may be infectious or inflammatory in nature. No definite diverticular disease in the affected portions of the sigmoid colon to suggest diverticulitis. 2. The tip of the appendix extends adjacent to the area of inflammatory stranding at the sigmoid colon. Secondary inflammation of the tip of the appendix can not be excluded. Correlate with clinical findings. 3. Mildly distended gallbladder with no calcified gallstones visualized. Correlate with clinical findings. If there is clinical concern for acute cholecystitis, ultrasound could be obtained. 4. Additional findings as described above. SEPSIS Sepsis Screen Date sepsis recognized/suspect: Dec 28, 2024 Time Sepsis recognized/suspect: 826 Recent Procedure: No On Antibiotic Therapy: No Respiratory Rate >20: No Heart Rate >90: Yes Temp<36 C (96.8 F) or >38.3 C: No SBP <90 or MAP <65 mmHG: No New Acute Mental Status Change: No Is the patient on CPAP, BIPAP,: No Physician Orders Ct Ab Pel Wo Con-No Oral Or Iv (12/28/24 12:11) Npo (Nothing By Mouth) Diet (12/28/24 Lunch) Admit (12/28/24 15:20) Code Status (12/28/24 15:20) Hydrocodone-Acet 5/325mg Tab ([place] 5/32 (12/28/24 15:30) Ondansetron Hcl (Zofran) (12/28/24 15:30) Docusate Sodium Capsule (Colace Capsule) (12/28/24 15:30) Complete Blood Count (12/29/24 04:00) Comprehensive Metabolic Panel (12/29/24 04:00) Condition: Serious (12/28/24 15:20) Acetaminophen Tablet (Tylenol Tablet) (12/28/24 15:30) Morphine Sulfate Injection (12/28/24 15:30) Multiple Vitamin W Mineral Tab (Mvi W/ M (12/28/24 15:45) Multiple Vitamin W Mineral Tab (Mvi W/ M (12/29/24 10:00) Thiamine Tab (12/28/24 15:45) Thiamine Tab (12/29/24 10:00) Folic Acid Tablet (12/28/24 15:45) Folic Acid Tablet (12/29/24 10:00) Vital Signs Date Time Temp Pulse Resp B/P (MAP) Pulse Ox O2 Delivery O2 Flow Rate FiO2 12/28/24 15:04 88 16 119/62 12/28/24 13:36 98.7 94 16 119/62 (81) 96 98.7 12/28/24 13:36 94 16 96 Room Air 12/28/24 13:30 98.4 99 20 114/73 (87) 97 98.4 12/28/24 08:27 98.5 104 16 168/111 97 98.5 Laboratory Tests Test 12/28/24 09:28 White Blood Count 6.6 10^3/uL (4.4-10.8) Medications Medications Dose Ordered Sig/Addie Route Start Time Stop Time Status Last Admin Dose Admin Cefazolin Sodium/ Dextrose 50 ml @ 50 mls/hr ONCE ONCE IV 12/28/24 14:30 12/28/24 15:29 DC 12/28/24 15:04 50 MLS/HR Hydromorphone HCl 0.25 mg ONCE ONCE IV 12/28/24 14:45 12/28/24 14:46 DC 12/28/24 15:04 0.25 MG Ketorolac Tromethamine 15 mg ONCE ONCE IV 12/28/24 12:15 12/28/24 12:27 DC 12/28/24 13:33 15 MG Ondansetron HCl 4 mg ONCE ONCE IV 12/28/24 12:15 12/28/24 12:27 DC 12/28/24 13:33 4 MG Potassium Chloride 40 meq ONCE ONCE PO 12/28/24 13:45 12/28/24 13:46 DC 12/28/24 13:40 40 MEQ Sodium Chloride 1,000 ml @ 1,000 mls/hr Q1H ONCE IV 12/28/24 12:15 12/28/24 13:14 DC 12/28/24 13:33 1,000 MLS/HR Assessment/Plan Assessment/Plan Assessment: Diverticulitis, Colitis, Hypokalemia, ETOH abuse, Possible ETOH withdrawal, Plan: Admit to Med-Surg, IV hydration, IV antibiotics, Consider GI consult, PO supplements for ETOH abuse, PRN Ativan for alcohol withdrawal symptoms, Manage/Monitor electrolytes closely, Home medications reconciled, Plan discussed with: Patient My Orders Orders - TONO JOHNSON Procedure Category Date Status Time Admit ADMIT 12/28/24 Transmitted 15:20 Code Status CODE 12/28/24 Transmitted 15:20 Hydrocodone-Acet PHA 12/28/24 Logged 5/325mg Tab ([place] 15:30 Ondansetron Hcl PHA 12/28/24 Logged (Zofran) 15:30 Docusate Sodium PHA 12/28/24 Logged Capsule (Colace 15:30 Complete Blood Count LAB 12/29/24 Verified 04:00 Comprehensive LAB 12/29/24 Verified Metabolic Panel 04:00 Condition: Serious GERMÁN 12/28/24 In Process 15:20 Acetaminophen Tablet PHA 12/28/24 Logged (Tylenol Tablet) 15:30 Morphine Sulfate PHA 12/28/24 Logged Injection 15:30 Multiple Vitamin W PHA 12/28/24 Logged Mineral Tab (Mvi W/ M 15:45 Multiple Vitamin W PHA 12/29/24 Logged Mineral Tab (Mvi W/ M 10:00 Thiamine Tab PHA 12/28/24 Logged 15:45 Thiamine Tab PHA 12/29/24 Logged 10:00 Folic Acid Tablet PHA 12/28/24 Logged 15:45 Folic Acid Tablet PHA 12/29/24 Logged 10:00 Date of Service: Dec 28, 2024 Billing Provider: TONO JOHNSON Common Visit Codes: [id number] INP/OBS CARE (MOD) TONO JOHNSON Dec 28, 2024 16:07
[2024-12-28] MEDS: FOLIC ACID 1 MG TAB PO ONE (16:28)
[2024-12-28] MEDS: THIAMINE HCL 100 MG TAB PO ONE (16:29)
[2024-12-28] MEDS: MULTIPLE VITAMINS W/ MINERALS TAB PO ONE (16:29)
[2024-12-28] MEDS: HYDROcodone-ACET 5/325MG TAB PO PRN (19:41)
[2024-12-28 23:38] VITALS: PULSE 85; RESP 20; O2SAT 98
[2024-12-29] VITALS (7 sets, daily range): BP systolic 136–166; BP diastolic 91–103; PULSE 55–84; RESP 16–20; TEMP 96.9–98.2; O2SAT 95–98
[2024-12-29 07:03] LABS: Hematocrit 33.2 % (41.0-53.0); Hemoglobin 10.8 g/dL (13.5-17.5); Mean Corpuscular Hemoglobin 25.2 pg (28.0-32.0); Mean Corpuscular Volume 77.5 fL (80.0-100.0); Nucleated Red Blood Cells % 0.1 %
[2024-12-29 07:23] LABS: Alanine Aminotransferase 13 U/L (7-40); Albumin 3.7 g/dL (3.2-4.8); Alkaline Phosphatase 69 U/L (46-116); Anion Gap 11 (5-15); BUN/Creatinine Ratio 14.1 (10.0-20.0); Bilirubin, Total 1.1 mg/dL (0.2-1.0); Blood Urea Nitrogen 9 mg/dL (9-23); Carbon Dioxide 25 mmol/L (20-31); Chloride 106 mmol/L (98-107); Glucose 86 mg/dL (74-106); Potassium 3.9 mmol/L (3.5-5.1); Sodium 142 mmol/L (136-145); Total Protein 6.5 g/dL (5.7-8.2)
[2024-12-29 07:32] LABS: Calcium 8.4 mg/dL (8.7-10.4); Magnesium 1.6 mg/dL (1.6-2.6)
[2024-12-29] MEDS: MULTIPLE VITAMINS W/ MINERALS TAB PO SCH (09:55)
[2024-12-29] MEDS: THIAMINE HCL 100 MG TAB PO SCH (09:55)
[2024-12-29] MEDS: FOLIC ACID 1 MG TAB PO SCH (09:55)
[2024-12-29] MEDS: LISINOPRIL 20 MG TAB PO SCH (10:00)
[2024-12-29] MEDS: HYDROmorphone HCL 2 MG/ML VL/or syr IV PRN (10:04)
[2024-12-29] MEDS: ERGOCALCIFEROL 50,000 UNIT(1.25MG) CAP PO SCH (10:30)
[2024-12-29] MEDS ORDERED: ERGOCALCIFEROL 50,000 UNIT(1.25MG) CAP PO SCH (10:30)
[2024-12-29 11:05] LABS: Iron 198.0 ug/dL (65-175)
[2024-12-29 11:07] LABS: Total Iron Binding Capacity 382.0 ug/dL (250-425)
--- NOTE | 2024-12-29 12:11 | DVHINCON2 ---
Date of service: Dec 29, 2024 Family History: Diabetes mellitus G8 MOTHER G8 FATHER Hypertension G8 MOTHER G8 FATHER Ischemic heart disease Allergies: Coded Allergies: NO KNOWN ALLERGIES (Unverified , 10/12/19) Home Meds Active Scripts Thiamine Hcl (VITAMIN B-1) 100 Mg Tb, 100 MG PO DAILY for 30 Days, #30 TAB Prov:[facility] 10/20/24 Folic Acid (Folic Acid) 1 Mg Tab, 1 MG PO DAILY for 30 Days, #30 TAB Prov:[facility] 10/20/24 Hctz (Hydrochlorothiazide) 25 Mg Tab, 12.5 MG PO DAILY for 30 Days, #15 TAB Prov:[facility] 10/20/24 Multiple Vitamin (Mvi Tab) 1 Tab Tb, 1 TAB PO DAILY for 30 Days, #30 TAB Prov:[facility] 10/20/24 Reported Medications Lisinopril (Lisinopril) 40 Mg Tab, 40 MG PO DAILY, TAB 10/17/24 Alprazolam (Alprazolam) 0.5 Mg Tab, 1 TAB PO PRN PRN for ANXIETY, #30 TAB 10/12/19 Discontinued Reported Medications Lisinopril & Hydrochlorothiazi (Lisinopril/Hydrochlorothi) 1 Tab Tab, 2 TAB PO DAILY 05/26/24 Discontinued Scripts Metronidazole (Metronidazole) 500 Mg Tab, 500 MG PO TID for 5 Days, #15 TAB Prov:[facility] 10/20/24 Ciprofloxacin Hydrochloride (Ciprofloxacin HCl) 500 Mg Tab, 500 MG PO DAILY for 5 Days, #5 TAB Prov:[facility] 10/20/24 Current Medications Current Medications Medications (Trade) Dose Ordered Sig/Addie Route PRN Reason Start Time Stop Time Status Last Admin Acetaminophen/ Hydrocodone Bitart ([place] 5/325MG Tab) 1 tab Q4HP PRN PO MODERATE PAIN (4-6 PAIN SCALE) 12/28/24 15:30 12/28/24 23:58 Ondansetron HCl (Zofran) 4 mg Q4HP PRN IV NAUSEA / VOMITING 12/28/24 15:30 Docusate Sodium (Colace Capsule) 100 mg BIDPRN PRN PO FOR CONSTIPATION 12/28/24 15:30 Acetaminophen (Tylenol Tablet) 650 mg Q6HP PRN PO PAIN SCALE 1-3 OR TEMP>100.4 12/28/24 15:30 Morphine Sulfate 2 mg Q4HPRN PRN IV SEVERE PAIN (7-10 PAIN SCALE) 12/28/24 15:30 12/28/24 15:36 DC Multivitamins/ Minerals (Mvi W/ Minerals Tablet) 1 tab DAILY PO 12/29/24 10:00 Thiamine HCl 100 mg DAILY PO 12/29/24 10:00 Folic Acid 1 mg DAILY PO 12/29/24 10:00 Hydromorphone HCl (Dilaudid Injection) 0.5 mg Q4HPRN PRN IV SEVERE PAIN (7-10 PAIN SCALE) 12/28/24 15:45 12/29/24 10:04 Metronidazole 100 ml @ 100 mls/hr Q8HR IV 12/28/24 22:00 12/29/24 06:49 Ceftriaxone Sodium 50 ml @ 100 mls/hr DAILY@09 IV 12/29/24 09:00 12/29/24 09:54 Lorazepam (Ativan Inj) 1 mg Q2HP PRN IV ALCOHOL WITHDRAWAL SYMPTOMS 12/28/24 16:00 Lisinopril (Zestril Tablet) 40 mg DAILY PO 12/29/24 10:00 Ergocalciferol (Vitamin D 50,000 Unit) 50,000 unit Q7D PO 12/29/24 10:30 Ergocalciferol (Vitamin D 50,000 Unit) 50,000 unit Q7D PO 12/29/24 10:30 12/29/24 10:48 DC Vital Signs Vital Signs Date Time Temp Pulse Resp B/P (MAP) Pulse Ox O2 Delivery O2 Flow Rate FiO2 12/29/24 10:04 75 18 146/94 12/29/24 09:00 97.8 98 97.8 12/28/24 23:38 Room Air* 0 21 Labs/Diagnostic Data Labs Test 12/29/24 06:19 12/28/24 13:35 12/28/24 09:28 Range/Units White Blood Count 2.6 L 4.4-10.8 10^3/uL Red Blood Count 4.28 L 4.5-5.90 10^6/uL Hemoglobin 10.8 L 13.5-17.5 g/dL Hematocrit 33.2 #L 41.0-53.0 % Mean Corpuscular Volume 77.5 L 80.0-100.0 fL Mean Corpuscular Hemoglobin 25.2 L 28.0-32.0 pg Mean Corpuscular Hemoglobin Concent 32.6 32.0-36.0 g/dL Red Cell Distribution Width 19.0 H 11.8-14.3 % Platelet Count 189 140-450 10^3/uL Mean Platelet Volume 8.4 6.9-10.8 fL Neutrophils (%) (Auto) 31.4 L 37.0-80.0 % Lymphocytes (%) (Auto) 49.6 10.0-50.0 % Monocytes (%) (Auto) 15.0 H 0.0-12.0 % Eosinophils (%) (Auto) 3.2 0.0-7.0 % Basophils (%) (Auto) 0.8 0.0-2.0 % Neutrophils # (Auto) 0.8 L 1.6-8.6 10 ^3/uL Lymphocytes # (Auto) 1.3 0.4-5.4 10 ^3/uL Monocytes # (Auto) 0.4 0-1.3 10 ^3/uL Eosinophils # (Auto) 0.1 0-0.8 10 ^3/uL Basophils # (Auto) 0 0-0.2 10 ^3/uL Nucleated Red Blood Cells 0.1 % Sodium Level 142 136-145 mmol/L Potassium Level 3.9 3.5-5.1 mmol/L Chloride Level 106 98-107 mmol/L Carbon Dioxide Level 25 20-31 mmol/L Anion Gap 11 5-15 Blood Urea Nitrogen 9 9-23 mg/dL Creatinine 0.64 L 0.700-1.30 mg/dL Glomerular Filtration Rate Calc 123 >90 mL/min BUN/Creatinine Ratio 14.1 10.0-20.0 Serum Glucose 86 74-106 mg/dL Calcium Level 8.4 L 8.7-10.4 mg/dL Magnesium Level 1.6 1.6-2.6 mg/dL Iron Level 198 H 65-175 ug/dL Total Iron Binding Capacity 382 250-425 ug/dL Percent Iron Saturation 51.8 20-55 % Ferritin 16.0 L 22-322 ng/mL Total Bilirubin 1.1 H 0.2-1.0 mg/dL Aspartate Amino Transferase (AST) 21 13-40 U/L Alanine Aminotransferase (ALT) 13 7-40 U/L Alkaline Phosphatase 69 46-116 U/L Total Protein 6.5 5.7-8.2 g/dL Albumin 3.7 3.2-4.8 g/dL Vitamin B12 Level 220 211-911 pg/mL Vitamin D 25-Hydroxy 26.4 L 30.0-100 ng/mL Thyroid Stimulating Hormone (TSH) 1.92 0.55-4.78 uIU/mL Urine Color Light-yellow Yellow Urine Clarity Clear Clear Urine pH 5.5 5.0-9.0 Urine Specific [place] 1.009 1.001-1.035 Urine Protein Negative Negative Urine Ketones Negative Negative Urine Blood Negative Negative /uL Urine Nitrite Negative Negative Urine Bilirubin Negative Negative Urine Urobilinogen Normal Negative mg/dL Urine Leukocyte Esterase Negative Negative /uL Urine RBC <1 0 - 3 /hpf Urine Microscopic WBC 1 0-3 /HPF Urine Squamous Epithelial Cells None seen <5 /hpf Urine Bacteria None seen None Seen /hpf Urine Glucose Normal Normal mg/dL Urine Opiates Screen Neg NEGATIVE Urine Fentanyl Screen Neg NEGATIVE Urine Barbiturates Screen Neg NEGATIVE Urine Phencyclidine Screen Neg NEGATIVE Urine Amphetamines Screen Neg NEGATIVE Urine Benzodiazepines Screen Neg NEGATIVE Urine Cocaine Screen Neg NEGATIVE Urine Cannabinoids Screen Neg NEGATIVE Lipase 37 12-53 U/L Plasma/Serum Blood Alcohol 156.7 H <10 mg/dL Assessment several prior episodes of similar illness, last one in October this year. tender left lower quadrant of abdomen ansd slight tenderness in ruq, no evidence of appendicitis, w/o in progress, will follow. Keep NPO Plan discussed with: Patient DEVAN GARCIA MD Dec 29, 2024 12:11
--- NOTE | 2024-12-29 12:36 | DVHPNRES ---
Progress Note Date Seen: Dec 29, 2024 Resident Creating Document: BARBARA ORTIZ RESIDENT Has the PT tested + for MRSA If YES, has PT been informed?: No Medical Necessity Reason Pt with a Central, PICC or Fol: No Subjective Review of Systems Chi Hall is a 39-year-old male past medical history of diverticulitis, hemorrhoids and hypertension presented to the hospital with the complaint of abdominal pain. The patient mentions he had been experiencing abdominal pain since 1 week, which he describes as intermittent, pressure-like sensation, mostly localized to the left lower abdomen, mostly 6/10 in intensity with episodes of the pain being 10/10 in intensity. The pain was associated with nausea and diarrhea, with passage of 4-5 watery stools yesterday. The patient mentions he noticed blood and pain while wiping. The patient came to the hospital yesterday but left AMA before being treated. He states he had 6-8 beers at home. Then, he came back to the hospital as his pain did not resolve. The patient was admitted to the hospital in October, with similar complaints and was diagnosed with diverticulitis that time. Past medical history: Hypertension, diverticulosis Past surgical history: Gastric bypass surgery in 2017 Family history: History of diverticulitis in mother, history of colon cancer in paternal grandfather (in old age) Social & Personal history: Lives at home with family Smoking: Past history of smoking,1/2 half pack for 8 years, quit last year Alcohol: Heavy (patient mentions having occasional binge drinking episodes) Drugs: denies Allergies: No known allergies Patient seen and examined at bedside. Patient is alert and oriented to time, place person and responding to all questions. No overnight events and complaint of mild left lower quadrant abdominal pain. Eyes: No Pain, No Vision change, No Conjunctivae inflammation, No Eyelid inflammation, No Redness ENT: No Ear pain, No Ear discharge, No Nose pain, No Nose discharge, No Nose congestion, No Mouth pain, No Mouth swelling, No Throat pain, No Throat swelling Cardiovascular: No Chest Pain, No Palpitations, No Orthopnea, No Paroxysmal No Dyspnea, No Edema, No Lt Headedness Respiratory: No Cough, No Dry, No Shortness of breath, No SOB with exertion, No Wheezing, No Hemoptysis, No Pleuritic Pain, No Sputum Gastrointestinal: No Nausea, No Vomiting, Abdominal Pain, Diarrhea, No Constipation, No Melena, No Hematochezia Genitourinary: No Dysuria, No Frequency, No Incontinence, No Hematuria, No Retention Objective vital signs Vital Sign Date Time Temp Pulse Resp B/P (MAP) Pulse Ox O2 Delivery O2 Flow Rate FiO2 12/29/24 10:04 75 18 146/94 12/29/24 09:00 97.8 98 97.8 12/28/24 23:38 Room Air* 0 21 Total Intake and Output 12/28/24 12/28/24 12/29/24 15:00 23:00 07:00 Intake Total 1000 ml 100 ml Output Total 400 ml Balance 1000 ml -300 ml medications Current Medications Medications Dose Ordered Sig/Addie Route Start Time Stop Time Status Last Admin Dose Admin Acetaminophen/ Hydrocodone Bitart 1 tab Q4HP PRN PO 12/28/24 15:30 12/28/24 23:58 1 TAB Ondansetron HCl 4 mg Q4HP PRN IV 12/28/24 15:30 Docusate Sodium 100 mg BIDPRN PRN PO 12/28/24 15:30 Acetaminophen 650 mg Q6HP PRN PO 12/28/24 15:30 Multivitamins/ Minerals 1 tab DAILY PO 12/29/24 10:00 Thiamine HCl 100 mg DAILY PO 12/29/24 10:00 Folic Acid 1 mg DAILY PO 12/29/24 10:00 Hydromorphone HCl 0.5 mg Q4HPRN PRN IV 12/28/24 15:45 12/29/24 10:04 0.5 MG Metronidazole 100 ml @ 100 mls/hr Q8HR IV 12/28/24 22:00 12/29/24 06:49 100 MLS/HR Ceftriaxone Sodium 50 ml @ 100 mls/hr DAILY@09 IV 12/29/24 09:00 12/29/24 09:54 100 MLS/HR Lorazepam 1 mg Q2HP PRN IV 12/28/24 16:00 Lisinopril 40 mg DAILY PO 12/29/24 10:00 Ergocalciferol 50,000 unit Q7D PO 12/29/24 10:30 Potassium Chloride/Dextrose/ Sod Cl 1,000 ml @ 120 mls/hr Q8H20M IV 12/29/24 12:15 UNV Examination General Appearance: Cooperative. Well developed. Well nourished. NAD Head Exam: Normal inspection Neck Exam: Normal inspection. Non-tender. Normal alignment Pulmonary/Respiratory: Chest non-tender. Clear bilateral breath sounds, no crackles, no wheezing. Cardiovascular/Chest: Regular rate and rhythm. No murmurs. No JVD. Peripheral Pulses: 2+ Radial (R). 2+ Radial (L). 2+ Pedal (R). 2+ Pedal (L) Abdominal Exam: Normal bowel sounds. Soft. obese abdomen, no visible veins, mild tenderness on palpation in left lower quadrant, mo's sign negative, No hepatospenomegaly. No masses Ankle Exam: Negative ankle edema Lower extremities: Negative lower extremity edema Neuro/Mental Status: A&O x4. Coherent. Thoughts/Psych: Normal thought pattern. Appropriate mood and affect. Good judgement and insight Skin Exam: Normal inspection. Normal color. Warm. Dry on NORI: no external hemorrhoids seen, empty rectal vault,no pain on examination,no internal hemorrhoids appreciated laboratory and microbiology Laboratory Tests 12/29/24 06:19 Test 12/29/24 06:19 Range/Units Serum Glucose 86 74-106 mg/dL Labs and/or images reviewed: Labs reviewed by me, Image(s) reviewed by me Problem List/Assessment/Plan Problem List/Assessment/Plan Assessment and plan: # Acute infectious colitis # Possible diverticulitis # Rule out appendicitis -keep patient NPO -patient started on ceftriaxone1 gm daily and metronidazole 500 mg tid -CT abdomen-showed colitis, secondary inflammation of tip of appendix, mild gallbladder distention, secondary inflammation of tip of appendix - Surgery evaluated the patient, recommended NPO # Hypokalemia,resolved # Alcohol abuse disorder Possible alcohol withdrawal -patient started on thiamine 100 mg p.o. daily and folic acid 1 mg p.o. daily -blood alcohol level was 156.7 on admission -the patient counseled extensively on need for cessation of alcohol consumption # vitamin-D [place] [address] units of vitamin-D daily for 7 days # Essential hypertension -continue lisinopril 40 mg daily DVT prophylaxis: Not indicated Goals of care: Full code, discussed for >18 minutes Plan discussed with Dr Ayon Plan discussed with: Patient My Orders My Orders Orders - BARBARA ORTIZ RESIDENT Procedure Category Date Status Time * Surgical Consult CONS 12/29/24 Transmitted 11:30 Dietary Evaluation Review Comments: 1. Diet as tolerated with MVI, folic Acid, thiamine supplementation 2. Add Vitamin D and B12 supplementation 3. alcohol rehab and Wt management upon D/C Expected Outcomes/Goals: free from ETOH, improved nutrition overall status, gradual Wt loss Date of Service: Dec 29, 2024 Billing Provider: CARLA AYON MD Common Visit Codes: [id number] INP/OBS CARE(HIGH) BARBARA ORTIZ RESIDENT Dec 29, 2024 12:36 DEIRDRE NOWAK RESIDENT Dec 29, 2024 13:03
--- NOTE | 2024-12-29 14:08 | DVH ---
ABDOMINAL ULTRASOUND CLINICAL HISTORY: r/o gallstones TECHNIQUE: Multiple grayscale and color Doppler ultrasound images were obtained of the abdomen. WID: COMPARISON: CT CT AB PEL WO CON-NO ORAL OR IV on DOS: 12/28/24 FINDINGS: Liver and Biliary System: Normal echogenicity, increased size measuring 21 cm. No focal hepatic ob servations. No intrahepatic bile duct dilatation. The common duct measures 0.5 cm at the rebecca hepa tis. The gallbladder contains cholelithiasis and normal caliber. No gallbladder wall thickening.. Mildly dilated gallbladder. Pancreas: Visualized portions are unremarkable. Kidneys: The right kidney is 10.2 cm . No hydronephrosis, increased echogenicity, shadowing stone, or focal lesion. IMPRESSION: 1. Mild hepatomegaly. 2. Cholelithiasis without acute cholecystitis or biliary ductal dilatation.
[2024-12-29] MEDS: D5W/SOD CHL 0.45%/KCL 20MEQ 1,000 ML IV SCH (16:55)
[2024-12-29] MEDS: CYANOCOBALAMIN (B-12) 1000 MCG/1 ML VIAL IM ONE (17:10)
--- NOTE | 2024-12-29 18:12 | DVHPN2 ---
Progress Note Date Seen: Dec 29, 2024 Resident Creating Document: JAUN COHENTAMMY RESIDENT Has the PT tested + for MRSA If YES, has PT been informed?: No Medical Necessity Reason Pt with a Central, PICC or Fol: No Subjective Review of Systems Patient is a 39-year-old male with significant medical history of colitis, hypertension, gastric bypass surgery presented to the hospital with a chief complaint of abdominal pain in the left lower quadrant for the last 2-3 days, [id number] in intensity, nonradiating, no change with the food associated diarrhea but no hematochezia or melena. Patient has a previous episodes of similar pain and was admitted to the hospital twice this year. Patient reports to be noncompliant to with the his diet after he gets discharged from the hospital. Patient reports to be heavy drinking and has been episodes of drinking, quit smoking last year and smoked for about 8 years half a pack a day. CT abdomen pelvis without contrast was done which showed inflammation in the region of the sigmoid colon and adjacent appendix tip was inflamed which could be secondary inflammation, cholelithiasis without evidence of cholecystitis. Limited abdominal ultrasound showed cholelithiasis without acute cholecystitis or biliary ductal dilation. Surgical consult was done who recommended the patient to be NPO. Review of systems Patient seen and examined at the bedside Reports abdominal pain has improved Denies nausea, vomiting, diarrhea Objective vital signs Vital Sign Date Time Temp Pulse Resp B/P (MAP) Pulse Ox O2 Delivery O2 Flow Rate FiO2 12/29/24 17:00 97.5 55 20 166/101 (122) 97 97.5 12/28/24 23:38 Room Air* 0 21 Total Intake and Output 12/28/24 12/28/24 12/29/24 15:00 23:00 07:00 Intake Total 1000 ml 100 ml Output Total 400 ml Balance 1000 ml -300 ml medications Current Medications Medications Dose Ordered Sig/Addie Route Start Time Stop Time Status Last Admin Dose Admin Acetaminophen/ Hydrocodone Bitart 1 tab Q4HP PRN PO 12/28/24 15:30 12/28/24 23:58 1 TAB Ondansetron HCl 4 mg Q4HP PRN IV 12/28/24 15:30 Docusate Sodium 100 mg BIDPRN PRN PO 12/28/24 15:30 Acetaminophen 650 mg Q6HP PRN PO 12/28/24 15:30 Multivitamins/ Minerals 1 tab DAILY PO 12/29/24 10:00 Thiamine HCl 100 mg DAILY PO 12/29/24 10:00 Folic Acid 1 mg DAILY PO 12/29/24 10:00 Hydromorphone HCl 0.5 mg Q4HPRN PRN IV 12/28/24 15:45 12/29/24 10:04 0.5 MG Metronidazole 100 ml @ 100 mls/hr Q8HR IV 12/28/24 22:00 12/29/24 17:00 100 MLS/HR Ceftriaxone Sodium 50 ml @ 100 mls/hr DAILY@09 IV 12/29/24 09:00 12/29/24 09:54 100 MLS/HR Lorazepam 1 mg Q2HP PRN IV 12/28/24 16:00 Lisinopril 40 mg DAILY PO 12/29/24 10:00 Ergocalciferol 50,000 unit Q7D PO 12/29/24 10:30 Potassium Chloride/Dextrose/ Sod Cl 1,000 ml @ 120 mls/hr Q8H20M IV 12/29/24 12:15 12/29/24 16:55 120 MLS/HR Examination Gen - no pallor, no scleral icterus Skin - Patients skin is warm and dry. HEENT - normocephalic, atraumatic, dry mucous membranes. Neck - supple, no lymphadenopathy Pulmonary - B/L equal air entry with vesicular breath sounds cardiovascular - regular S1,S2 heard GI - soft abdomen with tenderness to palpation in the left lower quadrant and positive Keen's sign. Bowel sounds normoactive. Neurological - Patient is alert and oriented x4. No motor or sensory weakness laboratory and microbiology Laboratory Tests 12/29/24 06:19 Test 12/29/24 06:19 Range/Units Serum Glucose 86 74-106 mg/dL Problem List/Assessment/Plan Problem List/Assessment/Plan Assessment Acute sigmoid colitis Recurrent colitis Cholelithiasis without cholecystitis Possible appendicitis Plan - reviewed CT abdomen pelvis which showed wall thickening and inflammatory stranding at the sigmoid colon may be infectious or inflammatory, tip of appendix extending adjacent to area of inflammatory stranding, secondary information of tip of appendix could not be excluded, mildly distended gallbladder - limited abdominal ultrasound showed cholelithiasis without evidence of cholecystitis - recommend to continue IV antibiotics - PUD prophylaxis with Protonix - patient may benefit from colonoscopy since he is having recurrent episodes of sigmoid colitis/diverticulitis - NPO as per surgery Plan discussed with Dr. Herr Plan discussed with: Patient, Other (MICHAEL Irizarry) Dietary Evaluation Review Comments: 1. Diet as tolerated with MVI, folic Acid, thiamine supplementation 2. Add Vitamin D and B12 supplementation 3. alcohol rehab and Wt management upon D/C Expected Outcomes/Goals: free from ETOH, improved nutrition overall status, gradual Wt loss NOA COHEN RESIDENT Dec 29, 2024 18:12
[2024-12-30] VITALS (8 sets, daily range): BP systolic 109–162; BP diastolic 69–111; PULSE 59–72; RESP 16–20; TEMP 97.5–98.2; O2SAT 97–99
[2024-12-30 07:29] LABS: Anion Gap 10 (5-15); Carbon Dioxide 26 mmol/L (20-31); Chloride 104 mmol/L (98-107); Potassium 3.6 mmol/L (3.5-5.1); Sodium 140 mmol/L (136-145)
[2024-12-30 07:33] LABS: Mean Corpuscular Volume 76.7 fL (80.0-100.0)
[2024-12-30 07:35] LABS: BUN/Creatinine Ratio 12.9 (10.0-20.0); Blood Urea Nitrogen 8 mg/dL (9-23); Calcium 8.7 mg/dL (8.7-10.4); Glucose 99 mg/dL (74-106); Hematocrit 32.7 % (41.0-53.0); Hemoglobin 10.8 g/dL (13.5-17.5); Mean Corpuscular Hemoglobin 25.2 pg (28.0-32.0); Nucleated Red Blood Cells % 0.2 %
[2024-12-30 12:34] LABS: Hepatitis B Surface Antigen Negative (Negative); Hepatitis C Antibody Negative (Negative)
--- NOTE | 2024-12-30 13:18 | DVHPN2 ---
Subjective Date Seen: Dec 30, 2024 Post op day Post op day: 0 Patient reports: No new complaints Nursing reports: No new complaints General: Normal HNT: Normal Cardiovascular: Normal Respiratory: Normal Gastrointestinal: Abdominal Pain Genitourinary: Normal Musculoskeletal: Normal Objective Vitals Vital Sign Date Time Temp Pulse Resp B/P (MAP) Pulse Ox O2 Delivery O2 Flow Rate FiO2 12/30/24 12:41 98.1 61 20 154/95 (114) 98 98.1 12/29/24 20:00 Room Air* 0 21 Total Intake and Output 12/29/24 12/29/24 12/30/24 15:00 23:00 07:00 Intake Total 150 ml 200 ml 0 ml Output Total 0 ml Balance 150 ml 200 ml 0 ml Medications Current Medications Medications Dose Ordered Sig/Addie Route Start Time Stop Time Status Last Admin Dose Admin Acetaminophen/ Hydrocodone Bitart 1 tab Q4HP PRN PO 12/28/24 15:30 12/28/24 23:58 1 TAB Ondansetron HCl 4 mg Q4HP PRN IV 12/28/24 15:30 Docusate Sodium 100 mg BIDPRN PRN PO 12/28/24 15:30 Acetaminophen 650 mg Q6HP PRN PO 12/28/24 15:30 Multivitamins/ Minerals 1 tab DAILY PO 12/29/24 10:00 Thiamine HCl 100 mg DAILY PO 12/29/24 10:00 12/30/24 10:59 100 MG Folic Acid 1 mg DAILY PO 12/29/24 10:00 12/30/24 10:59 1 MG Metronidazole 100 ml @ 100 mls/hr Q8HR IV 12/28/24 22:00 12/30/24 06:47 100 MLS/HR Ceftriaxone Sodium 50 ml @ 100 mls/hr DAILY@09 IV 12/29/24 09:00 12/30/24 10:54 100 MLS/HR Lorazepam 1 mg Q2HP PRN IV 12/28/24 16:00 Lisinopril 40 mg DAILY PO 12/29/24 10:00 12/30/24 11:00 40 MG Ergocalciferol 50,000 unit Q7D PO 12/29/24 10:30 Potassium Chloride/Dextrose/ Sod Cl 1,000 ml @ 120 mls/hr Q8H20M IV 12/29/24 12:15 12/29/24 16:55 120 MLS/HR General: Normal, Well developed, Obese Head/Eyes: Normal ENT: Normal Neck: Normal, Supple Lungs: Normal, Normal inspection Cardiovascular: Normal, Regular rate and rhythm Abdominal: Soft Skin: Normal Neurological: Normal Labs and Microbiology Laboratory Tests 12/30/24 06:36 Test 12/30/24 06:36 Range/Units Serum Glucose 99 74-106 mg/dL Ass/Plan Labs and/or images reviewed: Labs reviewed by me, Image(s) reviewed by me Problem List Assessment Acute sigmoid colitis Recurrent colitis Cholelithiasis without cholecystitis Possible appendicitis Plan - reviewed CT abdomen pelvis which showed wall thickening and inflammatory stranding at the sigmoid colon may be infectious or inflammatory, tip of appendix extending adjacent to area of inflammatory stranding, secondary information of tip of appendix could not be excluded, mildly distended gallbladder - limited abdominal ultrasound showed cholelithiasis without evidence of cholecystitis - recommend to continue IV antibiotics - PUD prophylaxis with Protonix - patient may benefit from colonoscopy since he is having recurrent episodes of sigmoid colitis/diverticulitis - NPO as per surgery Plan discussed with Dr. Herr Assessment/Plan patients sates he is feeling better minimal abdominal pain ultrasound reviewed and discussed with Dr. Borges patient has cholelithiasis patient does not have any right upper quadrant pain abdominal pain is most likely from his current illness diverticulosis and diverticulitis patient was informed he has gallstones No surgical intervention at this time please recall if needed Prognosis: Good Plan discussed with patient , dr. borges Visit Coding Surgery Date of Service if different f: Dec 30, 2024 Billing Provider: DEVAN BORGES MD Surgery Visit Codes: [id number] INP/OBS CARE(HIGH) SAGE VERDE [employer]PERATOR INSULATION Dec 30, 2024 13:18
--- NOTE | 2024-12-30 19:14 | DVHPNRES ---
Progress Note Date Seen: Dec 30, 2024 Resident Creating Document: BARBARA ORTIZ RESIDENT Has the PT tested + for MRSA If YES, has PT been informed?: No Medical Necessity Reason Pt with a Central, PICC or Fol: No Subjective Review of Systems Chi Hall is a 39-year-old male past medical history of diverticulitis, hemorrhoids and hypertension presented to the hospital with the complaint of abdominal pain. The patient mentions he had been experiencing abdominal pain since 1 week, which he describes as intermittent, pressure-like sensation, mostly localized to the left lower abdomen, mostly 6/10 in intensity with episodes of the pain being 10/10 in intensity. The pain was associated with nausea and diarrhea, with passage of 4-5 watery stools yesterday. The patient mentions he noticed blood and pain while wiping. The patient came to the hospital yesterday but left AMA before being treated. He states he had 6-8 beers at home. Then, he came back to the hospital as his pain did not resolve. The patient was admitted to the hospital in October, with similar complaints and was diagnosed with diverticulitis that time. Past medical history: Hypertension, diverticulosis Past surgical history: Gastric bypass surgery in 2017 Family history: History of diverticulitis in mother, history of colon cancer in paternal grandfather (in old age) Social & Personal history: Lives at home with family Smoking: Past history of smoking,1/2 half pack for 8 years, quit last year Alcohol: Heavy (patient mentions having occasional binge drinking episodes) Drugs: denies Allergies: No known allergies Patient seen and examined at bedside. Patient is alert and oriented to time, place person and responding to all questions. No overnight events and complaint of mild left lower quadrant abdominal pain. Eyes: No Pain, No Vision change, No Conjunctivae inflammation, No Eyelid inflammation, No Redness ENT: No Ear pain, No Ear discharge, No Nose pain, No Nose discharge, No Nose congestion, No Mouth pain, No Mouth swelling, No Throat pain, No Throat swelling Cardiovascular: No Chest Pain, No Palpitations, No Orthopnea, No Paroxysmal No Dyspnea, No Edema, No Lt Headedness Respiratory: No Cough, No Dry, No Shortness of breath, No SOB with exertion, No Wheezing, No Hemoptysis, No Pleuritic Pain, No Sputum Gastrointestinal: No Nausea, No Vomiting, Abdominal Pain, Diarrhea, No Constipation, No Melena, No Hematochezia Genitourinary: No Dysuria, No Frequency, No Incontinence, No Hematuria, No Retention The patient was seen at bedside today. Patient states that his abdominal pain has reduced considerably and the duration between the episodes of pain have also lengthened. Surgery was consulted for the patient and they mentioned no surgical intervention is required at the moment. The patient was started on clear liquid diet today, which will be advanced slowly as the patient tolerates. Objective vital signs Vital Sign Date Time Temp Pulse Resp B/P (MAP) Pulse Ox O2 Delivery O2 Flow Rate FiO2 12/30/24 16:43 97.7 60 20 149/100 (116) 99 97.7 12/30/24 08:15 Room Air* 0 21 Total Intake and Output 12/29/24 12/29/24 12/30/24 15:00 23:00 07:00 Intake Total 150 ml 200 ml 0 ml Output Total 0 ml Balance 150 ml 200 ml 0 ml medications Current Medications Medications Dose Ordered Sig/Addie Route Start Time Stop Time Status Last Admin Dose Admin Acetaminophen/ Hydrocodone Bitart 1 tab Q4HP PRN PO 12/28/24 15:30 12/30/24 15:18 1 TAB Ondansetron HCl 4 mg Q4HP PRN IV 12/28/24 15:30 Docusate Sodium 100 mg BIDPRN PRN PO 12/28/24 15:30 Acetaminophen 650 mg Q6HP PRN PO 12/28/24 15:30 Multivitamins/ Minerals 1 tab DAILY PO 12/29/24 10:00 12/30/24 10:00 1 TAB Thiamine HCl 100 mg DAILY PO 12/29/24 10:00 12/30/24 10:59 100 MG Folic Acid 1 mg DAILY PO 12/29/24 10:00 12/30/24 10:59 1 MG Metronidazole 100 ml @ 100 mls/hr Q8HR IV 12/28/24 22:00 12/30/24 15:33 100 MLS/HR Ceftriaxone Sodium 50 ml @ 100 mls/hr DAILY@09 IV 12/29/24 09:00 12/30/24 10:54 100 MLS/HR Lorazepam 1 mg Q2HP PRN IV 12/28/24 16:00 Lisinopril 40 mg DAILY PO 12/29/24 10:00 12/30/24 11:00 40 MG Ergocalciferol 50,000 unit Q7D PO 12/29/24 10:30 Potassium Chloride/Dextrose/ Sod Cl 1,000 ml @ 120 mls/hr Q8H20M IV 12/29/24 12:15 12/30/24 13:15 120 MLS/HR Examination General Appearance: Cooperative. Well developed. Well nourished. NAD Head Exam: Normal inspection Neck Exam: Normal inspection. Non-tender. Normal alignment Pulmonary/Respiratory: Chest non-tender. Clear bilateral breath sounds, no crackles, no wheezing. Cardiovascular/Chest: Regular rate and rhythm. No murmurs. No JVD. Peripheral Pulses: 2+ Radial (R). 2+ Radial (L). 2+ Pedal (R). 2+ Pedal (L) Abdominal Exam: Normal bowel sounds. Soft. obese abdomen, no visible veins, mild tenderness on palpation in left lower quadrant, mo's sign negative, No hepatospenomegaly. No masses Ankle Exam: Negative ankle edema Lower extremities: Negative lower extremity edema Neuro/Mental Status: A&O x4. Coherent. Thoughts/Psych: Normal thought pattern. Appropriate mood and affect. Good judgement and insight Skin Exam: Normal inspection. Normal color. Warm. Dry on NORI (12/29/24): no external hemorrhoids seen, empty rectal vault,no pain on examination,no internal hemorrhoids appreciated Nurse Tyler was present as sleeve maker during the examination laboratory and microbiology Laboratory Tests 12/30/24 06:36 Test 12/30/24 06:36 Range/Units Serum Glucose 99 74-106 mg/dL Labs and/or images reviewed: Labs reviewed by me, Image(s) reviewed by me Problem List/Assessment/Plan Problem List/Assessment/Plan # Acute infectious colitis # Possible diverticulitis # Rule out appendicitis -patient started on ceftriaxone1 gm daily and metronidazole 500 mg tid -CT abdomen-showed colitis, secondary inflammation of tip of appendix, mild gallbladder distention, secondary inflammation of tip of appendix - Surgery evaluated the patient,no surgical intervntion required at the moment -patient started on clear liquids today - # Hypokalemia,resolved # Alcohol abuse disorder Possible alcohol withdrawal -patient started on thiamine 100 mg p.o. daily and folic acid 1 mg p.o. daily -blood alcohol level was 156.7 on admission -the patient counseled extensively on need for cessation of alcohol consumption # vitamin-D [place] [address] units of vitamin-D daily for 7 days # Essential hypertension -continue lisinopril 40 mg daily DVT prophylaxis: Not indicated Goals of care: Full code, discussed for >18 minutes Plan discussed with Dr Ayon Plan discussed with: Patient My Orders My Orders Orders - BARBARA ORTIZ RESIDENT Procedure Category Date Status Time Clear Liq Diet DIET 12/30/24 Transmitted Breakfast Dietary Evaluation Review Comments: 1. Diet as tolerated with MVI, folic Acid, thiamine supplementation 2. Add Vitamin D and B12 supplementation 3. alcohol rehab and Wt management upon D/C Expected Outcomes/Goals: free from ETOH, improved nutrition overall status, gradual Wt loss Date of Service: Dec 30, 2024 Billing Provider: CARLA AYON MD Common Visit Codes: [id number] INP/OBS CARE(HIGH) BARBARA ORTIZ RESIDENT Dec 30, 2024 19:14
--- NOTE | 2024-12-30 21:38 | DVHPN2 ---
Progress Note - Dictate Date Seen: Dec 30, 2024 Has the PT tested + for MRSA If YES, has PT been informed?: No Medical Necessity Reason Pt with a Central, PICC or Fol: No Subjective The patient was seen at bedside today. Patient states that his abdominal pain has significantly improved Surgery follow up mentioned no surgical intervention is required at the moment. The patient was started on clear liquid diet today, which will be advanced slowly as the patient tolerates. vital signs Vital Sign Date Time Temp Pulse Resp B/P (MAP) Pulse Ox O2 Delivery O2 Flow Rate FiO2 12/30/24 16:43 97.7 60 20 149/100 (116) 99 97.7 12/30/24 08:15 Room Air* 0 21 Total Intake and Output 12/29/24 12/29/24 12/30/24 15:00 23:00 07:00 Intake Total 150 ml 200 ml 0 ml Output Total 0 ml Balance 150 ml 200 ml 0 ml medications Current Medications Medications Dose Ordered Sig/Addie Route Start Time Stop Time Status Last Admin Dose Admin Acetaminophen/ Hydrocodone Bitart 1 tab Q4HP PRN PO 12/28/24 15:30 12/30/24 15:18 1 TAB Ondansetron HCl 4 mg Q4HP PRN IV 12/28/24 15:30 Docusate Sodium 100 mg BIDPRN PRN PO 12/28/24 15:30 Acetaminophen 650 mg Q6HP PRN PO 12/28/24 15:30 Multivitamins/ Minerals 1 tab DAILY PO 12/29/24 10:00 12/30/24 10:00 1 TAB Thiamine HCl 100 mg DAILY PO 12/29/24 10:00 12/30/24 10:59 100 MG Folic Acid 1 mg DAILY PO 12/29/24 10:00 12/30/24 10:59 1 MG Metronidazole 100 ml @ 100 mls/hr Q8HR IV 12/28/24 22:00 12/30/24 15:33 100 MLS/HR Ceftriaxone Sodium 50 ml @ 100 mls/hr DAILY@09 IV 12/29/24 09:00 12/30/24 10:54 100 MLS/HR Lorazepam 1 mg Q2HP PRN IV 12/28/24 16:00 Lisinopril 40 mg DAILY PO 12/29/24 10:00 12/30/24 11:00 40 MG Ergocalciferol 50,000 unit Q7D PO 12/29/24 10:30 Potassium Chloride/Dextrose/ Sod Cl 1,000 ml @ 120 mls/hr Q8H20M IV 12/29/24 12:15 12/30/24 13:15 120 MLS/HR objective General Appearance: Cooperative. Well developed. Well nourished. NAD Neck Exam: Normal inspection. Non-tender. Normal alignment Chest non-tender. Clear bilateral breath sounds, no crackles, no wheezing. Cardiovascular/Chest: Regular rate and rhythm. No murmurs. No JVD. Abdominal Exam: Normal bowel sounds. Soft. obese abdomen, no visible veins, mild tenderness on palpation in left lower quadrant, mo's sign negative, No hepatospenomegaly. No masses Lower extremities: Negative lower extremity edema Neuro/Mental Status: A&O x4. Coherent. Thoughts/Psych: Normal thought pattern. Appropriate mood and affect. Good judgement and insight NORI (12/29/24) by resident : no external hemorrhoids seen, empty rectal vault,no pain on examination,no internal hemorrhoids appreciated laboratory and microbiology Laboratory Tests 12/30/24 06:36 Test 12/30/24 06:36 Range/Units Serum Glucose 99 74-106 mg/dL Problems(with codes): (1) Diverticulitis (2) Enterocolitis (3) Alcohol intoxication (4) Syncopal episodes (5) Colitis Prognosis PLAN Continue IV antibiotics Patient wants to eat regular food and we were slowly advance his diet Patient has been advised that he would benefit from a colonoscopy and he will follow up in my office as an outpatient to arrange the same or get his primary doctor to refer him to were contracted provider Patient stated his primary doctor results referred him to a colorectal surgeon as an outpatient for further evaluation If symptoms worsen consider repeat imaging, I will follow pt with u Dietary Evaluation Review Comments: 1. Diet as tolerated with MVI, folic Acid, thiamine supplementation 2. Add Vitamin D and B12 supplementation 3. alcohol rehab and Wt management upon D/C Expected Outcomes/Goals: free from ETOH, improved nutrition overall status, gradual Wt loss Plan discussed with: Patient NEAL TOLBERT MD Dec 30, 2024 21:38
[2024-12-31] VITALS (7 sets, daily range): BP systolic 127–143; BP diastolic 89–104; PULSE 54–102; RESP 15–18; TEMP 97.7–98.5; O2SAT 97–99
[2024-12-31 07:10] LABS: Hemoglobin 10.9 g/dL (13.5-17.5); Mean Corpuscular Volume 77.6 fL (80.0-100.0); Nucleated Red Blood Cells % 0.1 %
[2024-12-31 07:12] LABS: Hematocrit 33.3 % (41.0-53.0); Mean Corpuscular Hemoglobin 25.3 pg (28.0-32.0)
[2024-12-31 07:15] LABS: Anion Gap 11 (5-15); Carbon Dioxide 23 mmol/L (20-31); Chloride 106 mmol/L (98-107); Potassium 3.7 mmol/L (3.5-5.1); Sodium 140 mmol/L (136-145)
[2024-12-31 07:21] LABS: Glucose 89 mg/dL (74-106)
[2024-12-31 07:35] LABS: BUN/Creatinine Ratio 7.2 (10.0-20.0); Blood Urea Nitrogen < 5 mg/dL (9-23); Calcium 8.4 mg/dL (8.7-10.4)
[2024-12-31] MEDS ORDERED: METR-344 PO (10:23)
[2024-12-31] MEDS ORDERED: LEVO750T40 PO (10:23)
--- NOTE | 2024-12-31 17:38 | DVHDSRES ---
Discharge Summary Date of Admission Resident Creating Document: BARBARA ORTIZ RESIDENT Dec 28, 2024 at 15:20 Date of Discharge: Dec 31, 2024 Admitting Diagnosis acute diverticulitis Labs/Diagnostic Data: Laboratory Results Test 12/31/24 05:03 12/29/24 06:19 12/28/24 13:35 12/28/24 09:28 White Blood Count 3.3 10^3/uL (4.4-10.8) Red Blood Count 4.29 10^6/uL (4.5-5.90) Hemoglobin 10.9 g/dL (13.5-17.5) Hematocrit 33.3 % (41.0-53.0) Mean Corpuscular Volume 77.6 fL (80.0-100.0) Mean Corpuscular Hemoglobin 25.3 pg (28.0-32.0) Mean Corpuscular Hemoglobin Concent 32.6 g/dL (32.0-36.0) Red Cell Distribution Width 18.0 % (11.8-14.3) Platelet Count 161 10^3/uL (140-450) Mean Platelet Volume 8.8 fL (6.9-10.8) Neutrophils (%) (Auto) 42.6 % (37.0-80.0) Lymphocytes (%) (Auto) 39.0 % (10.0-50.0) Monocytes (%) (Auto) 9.8 % (0.0-12.0) Eosinophils (%) (Auto) 8.1 % (0.0-7.0) Basophils (%) (Auto) 0.5 % (0.0-2.0) Neutrophils # (Auto) 1.4 10 ^3/uL (1.6-8.6) Lymphocytes # (Auto) 1.3 10 ^3/uL (0.4-5.4) Monocytes # (Auto) 0.3 10 ^3/uL (0-1.3) Eosinophils # (Auto) 0.3 10 ^3/uL (0-0.8) Basophils # (Auto) 0 10 ^3/uL (0-0.2) Nucleated Red Blood Cells 0.1 % Sodium Level 140 mmol/L (136-145) Potassium Level 3.7 mmol/L (3.5-5.1) Chloride Level 106 mmol/L (98-107) Carbon Dioxide Level 23 mmol/L (20-31) Anion Gap 11 (5-15) Blood Urea Nitrogen < 5 mg/dL (9-23) Creatinine 0.69 mg/dL (0.700-1.30) Glomerular Filtration Rate Calc 120 mL/min (>90) BUN/Creatinine Ratio 7.2 (10.0-20.0) Serum Glucose 89 mg/dL (74-106) Calcium Level 8.4 mg/dL (8.7-10.4) Magnesium Level 1.6 mg/dL (1.6-2.6) Iron Level 198 ug/dL (65-175) Total Iron Binding Capacity 382 ug/dL (250-425) Percent Iron Saturation 51.8 % (20-55) Ferritin 16.0 ng/mL (22-322) Total Bilirubin 1.1 mg/dL (0.2-1.0) Aspartate Amino Transferase (AST) 21 U/L (13-40) Alanine Aminotransferase (ALT) 13 U/L (7-40) Alkaline Phosphatase 69 U/L (46-116) Total Protein 6.5 g/dL (5.7-8.2) Albumin 3.7 g/dL (3.2-4.8) Vitamin B12 Level 220 pg/mL (211-911) Vitamin D 25-Hydroxy 26.4 ng/mL (30.0-100) Thyroid Stimulating Hormone (TSH) 1.92 uIU/mL (0.55-4.78) Hepatitis B Surface Antigen Negative (Negative) Hepatitis C Antibody Negative (Negative) Urine Color Light-yellow (Yellow) Urine Clarity Clear (Clear) Urine pH 5.5 (5.0-9.0) Urine Specific [place] 1.009 (1.001-1.035) Urine Protein Negative (Negative) Urine Ketones Negative (Negative) Urine Blood Negative /uL (Negative) Urine Nitrite Negative (Negative) Urine Bilirubin Negative (Negative) Urine Urobilinogen Normal mg/dL (Negative) Urine Leukocyte Esterase Negative /uL (Negative) Urine RBC <1 /hpf (0 - 3) Urine Microscopic WBC 1 /HPF (0-3) Urine Squamous Epithelial Cells None seen /hpf (<5) Urine Bacteria None seen /hpf (None Seen) Urine Glucose Normal mg/dL (Normal) Urine Opiates Screen Neg (NEGATIVE) Urine Fentanyl Screen Neg (NEGATIVE) Urine Barbiturates Screen Neg (NEGATIVE) Urine Phencyclidine Screen Neg (NEGATIVE) Urine Amphetamines Screen Neg (NEGATIVE) Urine Benzodiazepines Screen Neg (NEGATIVE) Urine Cocaine Screen Neg (NEGATIVE) Urine Cannabinoids Screen Neg (NEGATIVE) Lipase 37 U/L (12-53) Plasma/Serum Blood Alcohol 156.7 mg/dL (<10) Other Laboratory Tests 12/31/24 05:03 Brief Hx & Hospital Course: Chi Hall is a 39-year-old male with past medical history of diverticulitis, hemorrhoids and hypertension who presented to the hospital with the complaint of abdominal pain. The patient had been experiencing abdominal pain since 1 week, which he described as intermittent, pressure-like sensation, mostly localized to the left lower abdomen, mostly 6/10 in intensity with episodes of the pain being 10/10 in intensity. The pain was associated with nausea and diarrhea, with passage of 4-5 watery stools the day before admission. The patient noticed blood and pain while wiping after passing stool. CT abdomen was done which showed inflammation of sigmoid colon consistent with colitis and secondary inflammation of the tip of the appendix. No surgical intervention was required at this time. The patient was admitted to the hospital in October, with similar complaints and was diagnosed with diverticulitis that time. During the course of hospitalization, his pain reduced considerably and his diet was slowly advanced to full liquids, which he tolerated well. Patient was discharged home on antibiotics and full liquids and asked to slowly advance is diet at home. He was asked to follow up with PCP and get GI referral as he was recommended outpatient colonoscopy. Medications and recommendations were thoroughly explained to the patient and he demonstrated understanding of the same. Past medical history: Hypertension, diverticulosis with diverticulitis Past surgical history: Gastric bypass surgery in 2017 Family history: History of diverticulitis in mother, history of colon cancer in paternal grandfather (in old age) Social & Personal history: Lives at home with family Smoking: Past history of smoking,1/2 half pack for 8 years, quit last year Alcohol: Heavy (patient mentions having occasional binge drinking episodes) Drugs: denies Allergies: No known allergies General Appearance: Cooperative. Well developed. Well nourished. NAD Head Exam: Normal inspection Neck Exam: Normal inspection. Non-tender. Normal alignment Pulmonary/Respiratory: Chest non-tender. Clear bilateral breath sounds, no crackles, no wheezing. Cardiovascular/Chest: Regular rate and rhythm. No murmurs. No JVD. Peripheral Pulses: 2+ Radial (R). 2+ Radial (L). 2+ Pedal (R). 2+ Pedal (L) Abdominal Exam: Normal bowel sounds. Soft. obese abdomen, no visible veins, no tenderness on palpation, mo's sign negative, No hepatospenomegaly. No masses Ankle Exam: Negative ankle edema Lower extremities: Negative lower extremity edema Neuro/Mental Status: A&O x4. Coherent. Thoughts/Psych: Normal thought pattern. Appropriate mood and affect. Good judgement and insight Skin Exam: Normal inspection. Normal color. Warm. Dry on NORI (12/29/24): no external hemorrhoids seen, empty rectal vault,no pain on examination,no internal hemorrhoids appreciated Nurse Tyler was present as bilingual recruiter during the examination Operations or Procedures 1.PROCEDURE(s): ABPL - CT AB PEL WO CON-NO ORAL OR IV REASON: R/o diverticulitis ORDER NUMBER(s): [id number], ACCESSION NUMBER(s): [id number] CLINICAL INFORMATION: Rule out diverticulitis. TECHNIQUE: Axial CT images of the abdomen and pelvis were obtained without IV contrast. Coronal and sagittal reformatted images were obtained, reviewed, and stored. Evaluation of the parenchymal organs is limited without IV contrast. Evaluation of the bowel and mesentery is limited without oral contrast. All CT scans at this medical facility are performed using dose modulation techniques as appropriate to a performed exam including the following: Automated exposure control was utilized; adjustment of the MA and/or KV according to patient size; and use of iterative reconstruction technique. CTDIvol = 22.3 mGy DLP = 1293.94 mGy-cm COMPARISON: CT CT AB PEL WO CON-NO ORAL OR IV on DOS: 10/16/24, CT ABD PELVIS WO CONTRAST on DOS: 10/13/19 FINDINGS: Lung bases: Lung bases are clear. Liver: Grossly unremarkable in its noncontrast enhanced appearance. No abnormal density or focal lesion identified. Biliary: Mildly distended gallbladder. No calcified gallstones visualized on CT. No biliary ductal dilatation. Spleen: Unremarkable. Pancreas: Grossly unremarkable in its noncontrast enhanced appearance. Adrenal glands: Unremarkable. No mass. Kidneys: No hydronephrosis. No renal or ureteral calculi. Aorta/Vascular: No aneurysm or significant calcification. Lymph nodes: No mass or lymphadenopathy. Bowel/mesentery: No small bowel obstruction. No free air or free fluid. Appendix is visualized and is normal in diameter. The distal tip of the appendix extends adjacent to an area of inflammatory stranding associated with wall thickening at the sigmoid colon. The inflammatory changes are centered around the sigmoid colon rather than the appendix. Likely colitis. Secondary inflammation of the tip of the appendix can not be excluded. There are no significant diverticula near the area of wall thickening and inflammatory stranding in the sigmoid colon. Postsurgical changes in the proximal stomach from gastric bypass surgery. Pelvic organs: Grossly unremarkable. Bladder: Unremarkable. No mass. Abdominal wall: Small fat containing indirect inguinal hernias. Bones: No acute fracture or suspicious intraosseous lesion. IMPRESSION: 1. Wall thickening and inflammatory stranding at the sigmoid colon consistent with colitis, may be infectious or inflammatory in nature. No definite diverticular disease in the affected portions of the sigmoid colon to suggest diverticulitis. 2. The tip of the appendix extends adjacent to the area of inflammatory stranding at the sigmoid colon. Secondary inflammation of the tip of the appendix can not be excluded. Correlate with clinical findings. 3. Mildly distended gallbladder with no calcified gallstones visualized. Correlate with clinical findings. If there is clinical concern for acute cholecystitis, ultrasound could be obtained. 4. Additional findings as described above. 2.PROCEDURE(s): ABDL - ABDOMEN LIMITED REASON: r/o gallstones ORDER NUMBER(s): [id number], ACCESSION NUMBER(s): [id number] ABDOMINAL ULTRASOUND CLINICAL HISTORY: r/o gallstones TECHNIQUE: Multiple grayscale and color Doppler ultrasound images were obtained of the abdomen. WID: COMPARISON: CT CT AB PEL WO CON-NO ORAL OR IV on DOS: 12/28/24 FINDINGS: Liver and Biliary System: Normal echogenicity, increased size measuring 21 cm. No focal hepatic observations. No intrahepatic bile duct dilatation. The common duct measures 0.5 cm at the rebecca hepatis. The gallbladder contains cholelithiasis and normal caliber. No gallbladder wall thickening.. Mildly dilated gallbladder. Pancreas: Visualized portions are unremarkable. Kidneys: The right kidney is 10.2 cm . No hydronephrosis, increased echogenicity, shadowing stone, or focal lesion. IMPRESSION: 1. Mild hepatomegaly. 2. Cholelithiasis without acute cholecystitis or biliary ductal dilatation. Condition at Discharge: Fair Final Diagnosis/Problems List acute infectious colitis acute diverticulitis hypertensive heart disease acute appendicitis,ruled out cholelithiasis without cholecystitis vitamin D deficiency alcohol abuse disorder Discharge Disposition: Home Discharge Instruct/Medications Diet: Regular Diet comment: clear liquid diet,slowly advanvce as tolerated Activity: No Restrictions, As Tolerated Follow Up/Referral: follow up with PCP in 1-2 weeks,get referral for GI Medications: levaquin flagyl Scheduled Amlodipine Besylate (Amlodipine Besylate), 1 TAB PO DAILY, (Reported) Folic Acid (Folic Acid), 1 MG PO DAILY Hctz (Hydrochlorothiazide), 12.5 MG PO DAILY Levofloxacin Hemihydrate (Levofloxacin), 1 TAB PO DAILY Lisinopril (Lisinopril), 40 MG PO DAILY, (Reported) Metronidazole (Flagyl), 1 TAB PO TID Multiple Vitamin (Mvi Tab), 1 TAB PO DAILY Thiamine Hcl (Vitamin B-1), 100 MG PO DAILY Scheduled PRN Alprazolam (Alprazolam), 1 TAB PO PRN PRN for ANXIETY, (Reported) Discontinued Medications Ciprofloxacin Hydrochloride (Ciprofloxacin HCl), 500 MG PO DAILY Lisinopril & Hydrochlorothiazi (Lisinopril/Hydrochlorothi), 2 TAB PO DAILY, (Reported) Metronidazole (Metronidazole), 500 MG PO TID Discharge Statement: "Patient was advised to return to the ER or call 911 if any headaches, dizziness, shortness of breath, chest pain, abdominal pain, bleeding, fevers, or worsening of medical condition. Patient was counseled about treatment plan, medications, possible side effects, patientverbalized understanding. All questions were answered to the best of my ability. This discharge took greater then 30 minutes in planning, reviewing documentation, counseling the patient, and discussing with other team members." ASSESSMENT ASSESSMENT Assessment acute colitis Date of Service: Dec 31, 2024 Billing Provider: CARLA RODARTE MD Common Visit Codes: 74790-EKI/OBS DISCH DAY >30min BARBARA ORTIZ RESIDENT Dec 31, 2024 17:38
--- NOTE | 2024-12-31 21:20 | DVHPN2 ---
Progress Note - Dictate Date Seen: Dec 31, 2024 Has the PT tested + for MRSA If YES, has PT been informed?: No Medical Necessity Reason Pt with a Central, PICC or Fol: No Subjective Abdominal pain has significantly improved Surgery follow up mentioned no surgical intervention is required at the moment. The patient was started on full liquid diet today, which will be advanced slowly as the patient tolerates. vital signs Vital Sign Date Time Temp Pulse Resp B/P (MAP) Pulse Ox O2 Delivery O2 Flow Rate FiO2 12/31/24 12:30 98.5 102 18 143/104 (117) 99 98.5 12/31/24 08:15 Room Air* 0 21 Total Intake and Output 12/30/24 12/30/24 12/31/24 15:00 23:00 07:00 Intake Total 150 ml 1300 ml 1000 ml Output Total 2 ml 1250 ml Balance 150 ml 1298 ml -250 ml objective General Appearance: Cooperative. Well developed. Well nourished. NAD Neck Exam: Normal inspection. Non-tender. Normal alignment Chest non-tender. Clear bilateral breath sounds, no crackles, no wheezing. Cardiovascular/Chest: Regular rate and rhythm. No murmurs. No JVD. Abdominal Exam: Normal bowel sounds. Soft. obese abdomen, no visible veins, mild tenderness on palpation in left lower quadrant, mo's sign negative, No hepatospenomegaly. No masses Lower extremities: Negative lower extremity edema Neuro/Mental Status: A&O x4. Coherent. Thoughts/Psych: Normal thought pattern. Appropriate mood and affect. Good judgement and insight NORI (12/29/24) by resident : no external hemorrhoids seen, empty rectal vault,no pain on examination,no internal hemorrhoids appreciated laboratory and microbiology Laboratory Tests 12/31/24 05:03 Test 12/31/24 05:03 Range/Units Serum Glucose 89 74-106 mg/dL Problems(with codes): (1) Syncopal episodes (2) Diverticulitis (3) Alcohol intoxication (4) Colitis Prognosis Plan Discharge planning is in progress Maintained on increase fluid fiber and stool softeners Patient is going home on antibiotics Outpatient follow up with GI Services to discuss elective colonoscopy Patient counseled about discontinuing alcohol Dietary Evaluation Review Comments: 1. Diet as tolerated with MVI, folic Acid, thiamine supplementation 2. Add Vitamin D and B12 supplementation 3. alcohol rehab and Wt management upon D/C Expected Outcomes/Goals: free from ETOH, improved nutrition overall status, gradual Wt loss Plan discussed with: Patient NEAL TOLBERT MD Dec 31, 2024 21:20
== END 2024-12-31 13:00 | disposition home or self-care (01) | DRG 249 ==
LOC: ER 08:26 → OVERFLOW 15:20 → WEST WING 21:50
PROVIDERS: ADMIT Internal Medicine; ATTEND Internal Medicine
DX: A09 Infectious gastroenteritis and colitis, unspecified (principal); E55.9 Vitamin D deficiency, unspecified; K57.32 Diverticulitis of large intestine without perforation or abscess without bleeding; K80.20 Calculus of gallbladder without cholecystitis without obstruction; E87.6 Hypokalemia; F10.10 Alcohol abuse, uncomplicated; Y90.6 Blood alcohol level of 120-199 mg/100 ml; I11.9 Hypertensive heart disease without heart failure; Z98.84 Bariatric surgery status; Z83.3 Family history of diabetes mellitus; Z82.49 Family history of ischemic heart disease and other diseases of the circulatory system; Z80.0 Family history of malignant neoplasm of digestive organs; Z87.891 Personal history of nicotine dependence
CPT/HCPCS: 36415; 74176; 76705; 80048; 80053; 80307; 80320; 81001; 82306; 82607; 82728; 83540; 83550; 83690; 83735; 84443; 85025; 86803; 87340; 96361; 96365; 96375; G0378; J1885; J2003; J2405; J3490